=== PATIENT | female | born 1945 | race Caucasian/White ===

== ENCOUNTER 2018-07-15 00:13 | Outpatient (CLI) | payer MEDICARE, SELFPAY ==
--- NOTE | 2018-07-15 08:47 | DI.RAD_ITS ---
SYMPTOM/DIAGNOSIS: RT HIP PAIN, M25.551, LOW BACK PAIN, M54.5 PELVIS AND RIGHT HIP: There is mild bilateral hip joint space narrowing. There is acetabular spurring, greatest superiorly of both hips. There is some spurring at the right greater trochanter. Severe degenerative disc changes are seen in the lower lumbar spine. Calcified fibroid is noted. IMPRESSION: Mild to moderate degenerative changes of both hips. LUMBAR SPINE: No compression fractures are seen. There are bilateral L 5 pars defects and grade 1 L 5-S 1 spondylolisthesis. There is also severe narrowing of the L 5-S 1 disc space. There is also severe narrowing of the L 3-4 disc eccentric toward the right where there are prominent endplate osteophytes. This creates a levoscoliosis. Milder degenerative changes are seen at the remaining levels. IMPRESSION: Degenerative disc changes, greatest at L 3-4 causing scoliosis. L 5 spondylolysis and mild L 5-S 1 spondylolisthesis.
== END 2018-07-15 00:33 ==
PROVIDERS: PCP Family Medicine; Visit Provider Family Medicine
DX: M25.551 Pain in right hip (principal); M16.0 Bilateral primary osteoarthritis of hip; M54.5 Low back pain; M51.36 Other intervertebral disc degeneration, lumbar region; M41.86 Other forms of scoliosis, lumbar region; M43.06 Spondylolysis, lumbar region; M43.17 Spondylolisthesis, lumbosacral region
CPT/HCPCS: 72110; 73502

== ENCOUNTER 2018-08-08 09:41 | Day surgery (SDC) | payer MEDICARE, SELFPAY ==
--- NOTE | 2018-08-07 12:43 | POEE_ITS ---
History of Present Illness Chief Complaint: Progressive decreased vision, right eye Narrative: The patient is a 72-year old lady with history of progressive decreased vision in both eyes at both distance and near. She notes decreased vision when knitting and crocheting and it more difficult time seeing at night d ue to glare from headlights. On examination she was noted to have bilateral nuclear and cortical cataracts with visual acuity of 20/40 OD, 20/20 OS. The option of cataract surgery was offered to the patient and she wished to proceed with cataract surgery in the right eye. NOTE: The Chief Complaint, HPI, Past Medical History, Past Surgical History, Family History, Social History, Medications, and complete Ophthalmic Exam with detailed Assessment and Plan have already been documented in the patient's outpatient ophthalmic record and are not covered again in detail here. PFSH Medical History Cortical cataract of right eye (Acute) Nuclear sclerotic cataract of right eye (Acute) Anxiety Cataract GERD (gastroesophageal reflux disease) H pylori ulcer Hyperlipidemia Migraine Vertigo Surgical History Colonoscopy - IV Sedation (01/06/17) Right Leg fracture Tubal Ligation, Family History Father Colon cancer Maternal Uncle Colon cancer Social History Smoking/Tobacco Use Status: Former Tobacco Use Meds Home Medications Medication Instructions Recorded Confirmed Type atenolol 50 mg PO QAM 03/02/13 08/04/18 History nmkjfdavgf-vdkemyi-pjisubil 1 ea PO Q4H PRN PRN 03/02/13 08/04/18 History cetirizine 10 mg PO DAILY 03/02/13 08/04/18 History cholecalciferol (vitamin D3) 2,000 unit PO DAILY 03/02/13 08/04/18 History cyanocobalamin (vitamin B-12) 1,000 mcg IJ DIRECTED 03/02/13 08/04/18 History meclizine [Antivert] 25 mg PO Q6H PRN PRN 03/02/13 08/04/18 History omeprazole 20 mg PO BID 03/02/13 08/04/18 History simvastatin 80 mg PO QPM 03/02/13 08/04/18 History trazodone 50 mg PO HS 03/02/13 08/04/18 History Tonia-C with Bioflavonoids 1 tab PO PRN PRN 09/16/17 11/15/17 History magnesium oxide [MagOx] 1 tab PO HS 09/16/17 11/15/17 History aspirin [Aspirin Low Dose] 81 mg PO DAILY tab-cap NS 11/02/17 08/04/18 History cod liver oil 1 ea PO HS NS 11/02/17 08/04/18 History gabapentin 400 mg PO HS NS 11/02/17 08/04/18 History lisinopril 2.5 mg PO DAILY tab-cap NS 11/02/17 08/04/18 History omega-3 fatty acids-fish oil 2 ea PO DAILY NS 11/02/17 08/04/18 History sennosides [Senokot] 2 tab-cap PO HS tab-cap NS 11/02/17 08/04/18 History vitamin E (dl, acetate) 100 unit PO HS NS 11/02/17 08/04/18 History pyridoxine (vitamin B6) [Vitamin 100 mg PO HS 11/15/17 08/04/18 History B-6] acetaminophen 1,000 mg PO TID 08/04/18 08/04/18 History ascorbic acid (vitamin C) [Vitamin 500 mg PO DAILY 08/04/18 08/04/18 History C] ibuprofen 400 mg PO .W/DINNER PRN 08/04/18 08/04/18 History oregano oil 08/04/18 History triamcinolone acetonide 1 applic TOPICAL BID 08/04/18 08/04/18 History Allergies Allergy/AdvReac Type Severity Reaction Status Date / Time adhesive Allergy Intermediate itchy rash Unverified 11/16/17 12:56 niacin Allergy Intermediate Skin Rash Unverified 11/16/17 12:56 Sulfa (Sulfonamide Allergy Intermediate Skin Rash Unverified 11/16/17 12:56 Antibiotics) codeine AdvReac Intermediate VOMITING Unverified 11/16/17 12:56 morphine AdvReac Mild vomiting Unverified 11/16/17 12:56 Exam OCULAR EXAM:: Most recent ocular examination reveals corrected visual acuity of 20/40 OD, 20/20 OS. Intraocular pressure is 14 OD, 15 OS. Pupils equal, round, and reactive without afferent pupillary defect extraocular motility is normal. Slit-lamp examination reveals pupils dilating to 5.5 mm OU. 1-2+ nuclear with 1+ cortical cataract OU. Funduscopic examination shows disc cupping of 0.3 OU with normal vessels, macula and vitreous. 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 BRIGHTNESS ACUITY TESTING (BAT):: Brightness acuity testing of the right eye off 20/40. Low is 20/30. Medium is 20/25. High is 20/30. Assessment and Plan (1) Nuclear sclerotic cataract of right eye: Current visit: No Status: Acute Assessment: Visually significant cataract, right eye. Plan: Cataract extraction with intraocular lens implantation, right eye (2) Cortical cataract of right eye: Current visit: No Status: Acute Assessment: Visually significant cataract, right eye. Plan: Cataract extraction with intraocular lens implantation, right eye Note: NOTE:: The details of the planned surgery, including the risks, indications,limitations,expectations,outcome and possible complications were explained to the patient. The patient understands the complications including, but not limited to: infection, hemorrhage, posterior dislocation of the lens or nuclear fragments which may require the intervention of a vitreoretinal surgeon, possible loss of the eye, or from anesthetic complications. The patient has been made aware of the option of not having surgery, that vision following surgery may not be equal to that prior to surgery, and that the planned surgery may not achieve the intended results. Following this discussion, which the patient appeared to understand, the patient wishes to proceed with cataract surgery with lens implantation of the affected eye to improve and maximize vision.
--- NOTE | 2018-08-07 18:59 | W.PM.DSUDISC ---
Discharge Plan Discharge Details Attending Provider: Justino Quinonez Primary Care Provider: Zaynab Thacker V Home Meds and New Rx's Prescriptions: No Action sennosides [Senokot] 8.6 MG tablet 2 tab-cap PO HS RF: 0 cod liver oil 1 EACH capsule 1 ea PO HS RF: 0 aspirin [Aspirin Low Dose] 81 MG tablet,delayed release (DR/EC) 81 mg PO DAILY RF: 0 gabapentin 100 MG capsule 400 mg PO HS RF: 0 lisinopril 2.5 MG tablet 2.5 mg PO DAILY RF: 0 vitamin E (dl, acetate) 100 UNIT capsule 100 unit PO HS RF: 0 omega-3 fatty acids-fish oil 1 EACH capsule 2 ea PO DAILY RF: 0 trazodone 50 MG tablet 50 mg PO HS RF: 0 simvastatin 80 MG tablet 80 mg PO QPM RF: 0 meclizine [Antivert] 25 MG tablet 25 mg PO Q6H PRN PRNRF: 0 cyanocobalamin (vitamin B-12) 1,000 MCG/1 ML solution 1,000 mcg IJ DIRECTED RF: 0 jmxqvwegkj-axauykq-jnyiiwmy 1 EACH capsule 1 ea PO Q4H PRN PRNRF: 0 omeprazole 20 MG capsule,delayed release(DR/EC) 20 mg PO BID RF: 0 atenolol 50 MG tablet 50 mg PO QAM RF: 0 cetirizine 10 MG tablet,chewable 10 mg PO DAILY RF: 0 cholecalciferol (vitamin D3) 1,000 UNITS tablet 2,000 unit PO DAILY RF: 0 Tonia-C with Bioflavonoids 1 EACH tablet 1 tab PO PRN PRNRF: 0 magnesium oxide [MagOx] 400 MG tablet 1 tab PO HS RF: 0 pyridoxine (vitamin B6) [Vitamin B-6] 100 MG tablet 100 mg PO HS RF: 0 triamcinolone acetonide 0.1 % Cream 1 applic TOPICAL BID RF: 0 ascorbic acid (vitamin C) [Vitamin C] 500 mg Tablet 500 mg PO DAILY RF: 0 ibuprofen 400 mg Tablet 400 mg PO .W/DINNER PRNRF: 0 acetaminophen 500 mg Capsule 1,000 mg PO TID RF: 0 oregano oil 1,500 mg Capsule RF: 0 melatonin 10 mg Tablet PO HS RF: 0 Discharge Instructions Stand Alone Forms: Post-op Topical Cataract, Press Ganey (DSU) DS: Diagnosis Discharge Diagnosis (1) Status post cataract extraction and insertion of intraocular lens of right eye: Status: Chronic
--- NOTE | 2018-08-07 19:00 | W.PM.OP ---
Date of service: 08/08/18 Time of Service: 12:20 Operative Note DATE OF PROCEDURE: 08/08/18 PRE-OP DIAGNOSIS: Cataract, right eye PROCEDURE: Cataract extraction using phacoemulsification with intraocular lens implant, right eye SURGEON: Justino Quinonez ANESTHESIA: MAC and local (sub-tenon's anesthetic infiltration) ESTIMATED BLOOD LOSS: 0 PATHOLOGY: none sent COMPLICATIONS: None Patient was transported to: same day Patient's condition: stable Implants: [employer] / [employer] Tecnis [id number] intraocular lens Indications: Progressive decreased vision due to cataract, right eye Procedure Description: CATARACT SURGERY OPERATIVE REPORT PREOPERATIVE DIAGNOSIS: Nuclear/cortical cataract, right eye POSTOPERATIVE DIAGNOSIS: Same OPERATION: Cataract extraction using phacoemulsification with posterior chamber intraocular lens implant, right eye. IOL: IOL First Line Supervisor/Model: [employer] / MARTA Tecnis ZCB00 IOL Power: + 17.0 diopters IOL Serial Number: [id number] Optic Diameter: 6.0mm Haptic/Overall Diameter: 13.0mm PHACO INFO: [employer] Vision System with OZil and Active [employer]uidics Cumulative Dispersed Energy (CDE): 9.51 seconds SURGEON: Justino Quinonez MD, MOE ANESTHESIA: Monitored Anesthesia Care (MAC), with local sub-tenon's anesthetic infiltration COMPLICATIONS: None SPECIMENS: None INDICATIONS FOR PROCEDURE: The patient is a 72-year-old lady with history of diminished visual acuity in both eyes secondary to the development of bilateral nuclear and cortical cataract. The option of cataract surgery was offered to the patient and she felt she was symptomatic enough that she wished to proceed. PROCEDURE: The correct surgical eye was identified and marked as the right eye and the pupil was dilated in the preoperative area using mydriatics and cycloplegics. The dilated pupil size was 6.5 mm. Oral sedation was administered in the form of an Imprimis MKO Melt (midazolam 3mg/ketamine 25mg/ondansetron 2mg). The patient was brought to the operating room where cardiopulmonary monitoring was instituted and surgical time-out was performed, confirming the correct operative eye and IOL power. Topical anesthesia was administered and ophthalmic povidone-iodine 5% was instilled into the conjunctival fornices. Lidocaine gel was applied to the cornea and the nerissa-ocular area was prepped with Betadine 10% solution and draped in the usual sterile fashion for intraocular surgery, including an aperture drape. A Tegaderm transparent film dressing was cut in half and used to cover the lashes and lid margins. Care was taken to sequester the lashes and lid margins under the Tegaderm dressing. A lid speculum was placed between the lids of the operative eye and the Dianne-Alisa operating microscope was maneuvered into position. Pop scissors were then used to make a conjunctival buttonhole approximately 6mm posterior to the limbus in the inferonasal quadrant. Blunt dissection was carried out to expose bare sclera, and a blunt-tipped sub-tenon?s anesthesia cannula was introduced and passed posteriorly along the globe where non-preserved plain lidocaine was injected into posterior sub-Tenon?s space. A sideport knife was used to make a paracentesis port inferiortemporally, and the anterior chamber was filled with Healon GV. A 2.4mm keratome knife was used to create a half-thickness groove at the limbus and then to construct a three-plane near-clear corneal tunnel extending 2.0mm into clear cornea in the superiortemporal position. . A flap was raised on the anterior capsule and capsulorhexis forceps were used to complete a continuous curvilinear capsulorhexis of 5.0 mm. Balanced salt solution was then used to perform cortical cleaving hydrodissection and nuclear hydrodelineation until the lens could be freely rotated within the capsular bag. The lens nucleus was then disassembled and removed within the capsular bag and iris plane using phacoemulsification. Residual cortical material was removed using the Caleb Transfomer I/A. Some shallowing of the anterior chamber was noted during I/A of the cortical material. The capsular bag was then inflated and the anterior chamber deepened with viscoelastic. The lens implant described above was inserted into the capsular bag using the MARTA [place] Injector. A Kuglen hook was used to dial the IOL into position. Residual viscoelastic was then removed first from posterior to the IOL, then from the anterior chamber using the I/A handpiece. The lens implant was noted to center nicely within the capsular bag. The anterior chamber was somewhat shallow. The incisions were stromally hydrated, resulting in iris prolapse through the main incision and paracentesis. A 15 degree blade was used to make a paracentesis port at the 2:30 o'clock position, and the anterior chamber pressure was relieved. Miostat was then injected into the anterior chamber and the pupil was noted to come down round. The anterior chamber was reformed using BSS. Then 0.4cc of moxifloxacin 1.5mg/ml were injected into the capsular bag and anterior chamber. The incisions were checked with a Weck spear and found to be secure, leaving the eye at physiologic pressure. Several drops of ophthalmic povidone-iodine 5% were then applied to the eye followed by two drops of Imprimis combination moxifloxacin/dexamethasone solution. The drapes were removed and a clear plastic protective eye shield was placed over the eye. The patient was then returned to Same Day Surgery in stable condition.
[2018-08-08 10:19] VITALS: BP 120/61; PULSE 57; RESP 16; TEMP 36.2; O2SAT 96
[2018-08-08] MEDS: Tetracaine 0.5% 4 ML BTL OD ×4 (10:26→11:43)
[2018-08-08] MEDS: Tropicam./Phenyleph. (1/2.5%) 5 ML BTL OD ×3 (10:27→10:42)
[2018-08-08] MEDS: Povidone-Iodine Ophth 30 ML BTL (11:42)
[2018-08-08] MEDS: Lidocaine 2% Jelly 6 ML SYR (11:43)
[2018-08-08] MEDS: Lidocaine 1% Pres-Free 5 ML VIAL (11:48)
[2018-08-08] MEDS: Balanced Salt Soln.-PLUS 500 ML BAG (11:49)
[2018-08-08 12:54] VITALS: BP 116/71; PULSE 68; RESP 16; TEMP 35.3; O2SAT 96
== END 2018-08-08 13:05 | disposition home or self-care (01) ==
LOC: SUR 09:41
PROVIDERS: PCP Family Medicine; Visit Provider Ophthalmology
PROC: (CPT 66984; principal; 2018-08-08 12:30)
DX: H25.811 Combined forms of age-related cataract, right eye (principal); I10 Essential (primary) hypertension; E11.9 Type 2 diabetes mellitus without complications; K21.9 Gastro-esophageal reflux disease without esophagitis
CPT/HCPCS: 66984; V2632

== ENCOUNTER 2018-08-22 13:02 | Day surgery (SDC) | payer MEDICARE, SELFPAY ==
--- NOTE | 2018-08-21 18:59 | POEE_ITS ---
History of Present Illness Chief Complaint: Progressive decreased vision, left eye Narrative: The patient is a 72-year old lady with history of progressive decreased vision in both eyes at both distance and near. She noted difficulty with knitting and crocheting and trouble seeing at night. On examination she wa s noted to have bilateral nuclear and cortical cataracts with visual acuity of 20/40 OD, 20/20 OS. She underwent cataract surgery in the right eye on 08/08/2018. Postoperatively she has regained uncorrected vision of 20/20 in the right eye. She has uncorrected vision of 20/60 in the left eye and now desires cataract surgery in her left eye to improve and maximize her vision. NOTE: The Chief Complaint, HPI, Past Medical History, Past Surgical History, Family History, Social History, Medications, and complete Ophthalmic Exam with detailed Assessment and Plan have already been documented in the patient's outpatient ophthalmic record and are not covered again in detail here. PFSH Medical History Cortical cataract of left eye (Acute) Nuclear sclerotic cataract of left eye (Acute) Cortical cataract of right eye (Resolved) Nuclear sclerotic cataract of right eye (Resolved) Anxiety Cataract GERD (gastroesophageal reflux disease) H pylori ulcer Hyperlipidemia Migraine Vertigo Surgical History Status post cataract extraction and insertion of intraocular lens of right eye (Chronic 08/08/18) Colonoscopy - IV Sedation (01/06/17) Right Leg fracture Tubal Ligation, Family History Father Colon cancer Maternal Uncle Colon cancer Social History Smoking and Tabacco status: Never Meds Home Medications Medication Instructions Recorded Confirmed Type atenolol 50 mg PO QAM 03/02/13 08/08/18 History pmpwtmwvgv-lkfvnkn-plmxvewx 1 ea PO Q4H PRN PRN 03/02/13 08/08/18 History cetirizine 10 mg PO DAILY 03/02/13 08/08/18 History cholecalciferol (vitamin D3) 2,000 unit PO DAILY 03/02/13 08/08/18 History cyanocobalamin (vitamin B-12) 1,000 mcg IJ DIRECTED 03/02/13 08/08/18 History meclizine [Antivert] 25 mg PO Q6H PRN PRN 03/02/13 08/08/18 History omeprazole 20 mg PO BID 03/02/13 08/08/18 History simvastatin 80 mg PO QPM 03/02/13 08/08/18 History trazodone 50 mg PO HS 03/02/13 08/08/18 History Tonia-C with Bioflavonoids 1 tab PO PRN PRN 09/16/17 11/15/17 History magnesium oxide [MagOx] 1 tab PO HS 09/16/17 08/08/18 History aspirin [Aspirin Low Dose] 81 mg PO DAILY tab-cap NS 11/02/17 08/08/18 History cod liver oil 1 ea PO HS NS 11/02/17 08/08/18 History gabapentin 400 mg PO HS NS 11/02/17 08/08/18 History lisinopril 2.5 mg PO DAILY tab-cap NS 11/02/17 08/08/18 History omega-3 fatty acids-fish oil 2 ea PO DAILY NS 11/02/17 08/08/18 History sennosides [Senokot] 2 tab-cap PO HS tab-cap NS 11/02/17 08/08/18 History vitamin E (dl, acetate) 100 unit PO HS NS 11/02/17 08/08/18 History pyridoxine (vitamin B6) [Vitamin 100 mg PO HS 11/15/17 08/08/18 History B-6] acetaminophen 1,000 mg PO TID 08/04/18 08/08/18 History ascorbic acid (vitamin C) [Vitamin 500 mg PO DAILY 08/04/18 08/08/18 History C] ibuprofen 400 mg PO .W/DINNER PRN 08/04/18 08/08/18 History oregano oil 08/04/18 History triamcinolone acetonide 1 applic TOPICAL BID 08/04/18 08/08/18 History melatonin PO HS 08/08/18 History Allergies Allergy/AdvReac Type Severity Reaction Status Date / Time adhesive Allergy Intermediate itchy rash Unverified 08/08/18 10:07 niacin Allergy Intermediate Skin Rash Unverified 08/08/18 10:07 Sulfa (Sulfonamide Allergy Intermediate Skin Rash Unverified 08/08/18 10:07 Antibiotics) codeine AdvReac Intermediate VOMITING Unverified 08/08/18 10:07 morphine AdvReac Mild vomiting Unverified 08/08/18 10:07 Exam OCULAR EXAM:: Most recent ocular examination revealed uncorrected vision of 20/20 OD, 20/60 OS. Intraocular pressure was 14 OD, 15 OS. Extraocular motility is normal. Pupils equal, round, and reactive without afferent pupillary defect slit-lamp examination is significant for pupils dilating to 5.5 mm OU. Well-positioned PCIOL OD with clear posterior capsule. 1-2+ nuclear with 1+ cortical cataract OS. Dilated funduscopic examination shows disc cupping of 0.3 OU with good color. The macula is normal. Retinopexy scars are present inferiorly in the right eye. 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 BRIGHTNESS ACUITY TESTING (BAT):: Brightness acuity testing of the left eye off is 20/20. Low is 20/25. Medium is 20/20. High is 20/30. Assessment and Plan (1) Nuclear sclerotic cataract of left eye: Current visit: No Status: Acute Assessment: Visually significant cataract, left eye. Plan: Cataract extraction with intraocular lens implantation, left eye (2) Cortical cataract of left eye: Current visit: No Status: Acute Assessment: Visually significant cataract, left eye. Plan: Cataract extraction with intraocular lens implantation, left eye Note: NOTE:: The details of the planned surgery, including the risks, indications,limitations,expectations,outcome and possible complications were explained to the patient. The patient understands the complications including, but not limited to: infection, hemorrhage, posterior dislocation of the lens or nuclear fragments which may require the intervention of a vitreoretinal surgeon, possible loss of the eye, or from anesthetic complications. The patient has been made aware of the option of not having surgery, that vision following surgery may not be equal to that prior to surgery, and that the planned surgery may not achieve the intended results. Following this discussion, which the patient appeared to understand, the patient wishes to proceed with cataract surgery with lens implantation of the affected eye to improve and maximize vision.
[2018-08-22 10:00] VITALS: BP 115/62; PULSE 58; RESP 16; TEMP 36.1; O2SAT 97
[2018-08-22] MEDS: Tetracaine 0.5% 4 ML BTL OS ×4 (10:33→12:17)
[2018-08-22] MEDS: Tropicam./Phenyleph. (1/2.5%) 5 ML BTL OS ×3 (10:33→10:40)
[2018-08-22] MEDS: Lidocaine 2% Jelly 6 ML SYR (12:17)
[2018-08-22] MEDS: Lidocaine 1% Pres-Free 5 ML VIAL (12:21)
[2018-08-22] MEDS: Balanced Salt Soln.-PLUS 500 ML BAG (12:21)
[2018-08-22] MEDS: Povidone-Iodine Ophth 30 ML BTL (12:45)
--- NOTE | 2018-08-22 12:50 | W.PM.DSUDISC ---
Discharge Plan Discharge Details Attending Provider: Justino Quinonez Primary Care Provider: Zaynab Thacker V Home Meds and New Rx's Prescriptions: No Action sennosides [Senokot] 8.6 MG tablet 2 tab-cap PO HS RF: 0 cod liver oil 1 EACH capsule 1 ea PO HS RF: 0 aspirin [Aspirin Low Dose] 81 MG tablet,delayed release (DR/EC) 81 mg PO DAILY RF: 0 gabapentin 100 MG capsule 400 mg PO HS RF: 0 lisinopril 2.5 MG tablet 2.5 mg PO DAILY RF: 0 vitamin E (dl, acetate) 100 UNIT capsule 100 unit PO HS RF: 0 omega-3 fatty acids-fish oil 1 EACH capsule 2 ea PO DAILY RF: 0 trazodone 50 MG tablet 50 mg PO HS RF: 0 simvastatin 80 MG tablet 80 mg PO QPM RF: 0 meclizine [Antivert] 25 MG tablet 25 mg PO Q6H PRN PRNRF: 0 cyanocobalamin (vitamin B-12) 1,000 MCG/1 ML solution 1,000 mcg IJ DIRECTED RF: 0 fpllmdrzhf-ftwdajd-pzwpkzdf 1 EACH capsule 1 ea PO Q4H PRN PRNRF: 0 omeprazole 20 MG capsule,delayed release(DR/EC) 20 mg PO BID RF: 0 atenolol 50 MG tablet 50 mg PO QAM RF: 0 cetirizine 10 MG tablet,chewable 10 mg PO DAILY RF: 0 cholecalciferol (vitamin D3) 1,000 UNITS tablet 2,000 unit PO DAILY RF: 0 Tonia-C with Bioflavonoids 1 EACH tablet 1 tab PO PRN PRNRF: 0 magnesium oxide [MagOx] 400 MG tablet 1 tab PO HS RF: 0 pyridoxine (vitamin B6) [Vitamin B-6] 100 MG tablet 100 mg PO HS RF: 0 triamcinolone acetonide 0.1 % Cream 1 applic TOPICAL BID RF: 0 ascorbic acid (vitamin C) [Vitamin C] 500 mg Tablet 500 mg PO DAILY RF: 0 ibuprofen 400 mg Tablet 400 mg PO .W/DINNER PRNRF: 0 acetaminophen 500 mg Capsule 1,000 mg PO TID RF: 0 oregano oil 1,500 mg Capsule RF: 0 melatonin 10 mg Tablet 1 tab PO HS RF: 0 Discharge Instructions Stand Alone Forms: Post-op Topical Cataract, Press Ganey (DSU) DS: Diagnosis Discharge Diagnosis (1) Status post cataract extraction and insertion of intraocular lens of left eye: Status: Chronic
--- NOTE | 2018-08-22 12:51 | W.PM.OP ---
Date of service: 08/22/18 Time of Service: 12:51 Operative Note PRE-OP DIAGNOSIS: Cataract, left eye POST-OP DIAGNOSIS: same PROCEDURE: Cataract extraction using phacoemulsification with intraocular lens implant, left eye SURGEON: Justino Quinonez ANESTHESIA: MAC and local (sub-tenon's anesthetic infiltration) PATHOLOGY: none sent COMPLICATIONS: None Patient was transported to: same day Patient's condition: stable Implants: [employer] / [employer] Tecnis [id number] Indications: Progressive decreased vision due to cataract, left eye Procedure Description: CATARACT SURGERY OPERATIVE REPORT PREOPERATIVE DIAGNOSIS: Nuclear/cortical cataract, left eye POSTOPERATIVE DIAGNOSIS: Same OPERATION: Cataract extraction using phacoemulsification with posterior chamber intraocular lens implant, left eye. IOL: IOL Api Developer/Model: [employer] / MARTA Tecnis [id number] IOL Power: + 16.50 diopters IOL Serial Number: [id number] Optic Diameter: 6.0mm Haptic/Overall Diameter: 13.0mm PHACO INFO: Caleb Get[employer]urion Vision System with OZil and Active Fluidics Cumulative Dispersed Energy (CDE): 8.0 seconds SURGEON: Justino Quinonez MD, MOE ANESTHESIA: Monitored Anesthesia Care (MAC), with local sub-tenon's anesthetic infiltration COMPLICATIONS: None SPECIMENS: None INDICATIONS FOR PROCEDURE: Patient is a 72-year-old lady with history of diminished visual acuity in both eyes secondary to the development of bilateral nuclear and cortical cataract. She is Ardie undergone cataract surgery in her right eye on 08/08/2018. She is doing well postoperatively. She now presents for cataract surgery in the left eye. PROCEDURE: The correct surgical eye was identified and marked as the left eye and the pupil was dilated in the preoperative area using mydriatics and cycloplegics. The dilated pupil size was 7.0 mm. Oral sedation was administered in the form of an Imprimis MKO Melt (midazolam 3mg/ketamine 25mg/ondansetron 2mg). The patient was brought to the operating room where cardiopulmonary monitoring was instituted and surgical time-out was performed, confirming the correct operative eye and IOL power. Topical anesthesia was administered and ophthalmic povidone-iodine 5% was instilled into the conjunctival fornices. Lidocaine gel was applied to the cornea and the nerissa-ocular area was prepped with Betadine 10% solution and draped in the usual sterile fashion for intraocular surgery, including an aperture drape. A Tegaderm transparent film dressing was cut in half and used to cover the lashes and lid margins. Care was taken to sequester the lashes and lid margins under the Tegaderm dressing. A lid speculum was placed between the lids of the operative eye and the Dianne-Alisa operating microscope was maneuvered into position. Pop scissors were then used to make a conjunctival buttonhole approximately 6mm posterior to the limbus in the inferonasal quadrant. Blunt dissection was carried out to expose bare sclera, and a blunt-tipped sub-tenon?s anesthesia cannula was introduced and passed posteriorly along the globe where non-preserved plain lidocaine was injected into posterior sub-Tenon?s space. A sideport knife was used to make a paracentesis port superior/superiortemporal, and the anterior chamber was filled with Healon GV. A 2.4mm keratome knife was used to create a half-thickness groove at the limbus and then to construct a three-plane near-clear corneal tunnel extending 2.0mm into clear cornea in the temporal position. . A flap was raised on the anterior capsule and capsulorhexis forceps were used to complete a continuous curvilinear capsulorhexis of 5.5 mm. Balanced salt solution was then used to perform cortical cleaving hydrodissection and nuclear hydrodelineation until the lens could be freely rotated within the capsular bag. The lens nucleus was then disassembled and removed within the capsular bag and iris plane using phacoemulsification. Residual cortical material was removed using the 45-degree angled silicone I/A tip with 0.3mm port. The posterior capsule was carefully polished to remove as much residual lens epithelial cells as safely possible. The capsular bag was then inflated and the anterior chamber deepened with viscoelastic. The lens implant described above was inserted into the capsular bag using the MARTA [place] Injector. A Kuglen hook was used to dial the IOL into position. Residual viscoelastic was then removed first from posterior to the IOL, then from the anterior chamber using the I/A handpiece. The lens implant was noted to center nicely within the capsular bag. The incisions were stromally hydrated, and the anterior chamber was reformed using BSS. Then 0.4cc of moxifloxacin 1.5mg/ml were injected into the capsular bag and anterior chamber. The incisions were checked with a Weck spear and found to be secure. Several drops of ophthalmic povidone-iodine 5% were then applied to the eye followed by two drops of Imprimis combination moxifloxacin/dexamethasone solution. The drapes were removed and a clear plastic protective eye shield was placed over the eye. The patient was then returned to Same Day Surgery in stable condition.
[2018-08-22 13:05] VITALS: BP 108/65; PULSE 67; RESP 16; TEMP 35.7; O2SAT 95
== END 2018-08-22 13:15 | disposition home or self-care (01) ==
LOC: SUR 13:02
PROVIDERS: PCP Family Medicine; Visit Provider Ophthalmology
PROC: (CPT 66984; principal; 2018-08-22 11:30)
DX: H25.812 Combined forms of age-related cataract, left eye (principal); Z98.41 Cataract extraction status, right eye; Z96.1 Presence of intraocular lens; E11.9 Type 2 diabetes mellitus without complications; K21.9 Gastro-esophageal reflux disease without esophagitis
CPT/HCPCS: 66984; V2632

== ENCOUNTER → 2018-08-24 10:40 | Outpatient (BNVA) | payer MEDICARE, SELFPAY | PROVIDERS: PCP Family Medicine; Referring Provider Family Medicine; Visit Provider Student in an Organized Health Care Education/Training Program | DX: M43.17 Spondylolisthesis, lumbosacral region (principal); M41.50 Other secondary scoliosis, site unspecified | CPT/HCPCS: 99203; 99214 ==

== ENCOUNTER 2018-09-13 15:25 | Outpatient (REF) | payer MEDICARE, SELFPAY ==
[2018-09-13 20:59] LABS: ALT 39 U/L (12-78); AST 56 U/L (15-37); Alkaline Phosphatase 53 U/L (46-116); Anion Gap 9.9 mmol/L (3-11); BUN 14 mg/dL (7-18); Bilirubin, Total 0.3 mg/dL (0.2-1.0); CO2 26.1 mmol/L (21.0-32.0); CREATININE 0.82 mg/dL (0.55-1.02); Calcium 9.3 mg/dL (8.5-10.1); Chloride 102 mmol/L (98-107); Cholesterol 241 mg/dL (50-200); Glucose 145 mg/dL (70-100); HDL Cholesterol 42 mg/dL (40-60); LDL CHOLESTEROL 127 mg/dL (<100); Potassium 3.8 mmol/L (3.5-5.1); Sodium 138 mmol/L (136-145); Total Protein 7.7 g/dL (6.4-8.2); Triglyceride 585 mg/dL (30-150)
== END 2018-09-13 15:45 ==
LOC: NCHCN 15:25
PROVIDERS: PCP Family Medicine; Visit Provider Family Medicine
DX: I10 Essential (primary) hypertension (principal); E78.5 Hyperlipidemia, unspecified
CPT/HCPCS: 80053; 80061; 83721

== ENCOUNTER 2018-10-04 09:50 | Outpatient (CLI) | payer MEDICARE, SELFPAY ==
--- NOTE | 2018-10-04 13:15 | DI.MAMMO_ITS ---
SYMPTOMS/DIAGNOSIS: SCREENING, Z12.31, [facility], Z00.00 MAMMOGRAM: Mammograms were interpreted according to the usual protocol including computer analysis with CAD system, tomosynthesis and C view imaging. The breast tissue is of moderate radiodensity. There is no evidence of a mass. There are no suspicious calcifications. When compared with the previous study, again noted is a biopsy clip positioned over the lateral portion of the left breast. SUMMARY: No evidence of malignancy, Category I, yearly screening mammography is recommended. Breast density Category B. SA ASSESSMENT OF FINDINGS: Negative. Category 1. Patient will receive a letter notifying them of these results. BI-RADS category B. There are scattered areas of fibroglandular density.
== END 2018-10-04 10:10 ==
PROVIDERS: PCP Family Medicine; Visit Provider Family Medicine
DX: Z12.31 Encounter for screening mammogram for malignant neoplasm of breast (principal)
CPT/HCPCS: 77063; 77067

== ENCOUNTER → 2018-10-19 10:25 | Outpatient (BNVA) | payer MEDICARE, SELFPAY | PROVIDERS: PCP Family Medicine; Referring Provider Family Medicine; Visit Provider Student in an Organized Health Care Education/Training Program | DX: M41.50 Other secondary scoliosis, site unspecified (principal); M43.10 Spondylolisthesis, site unspecified | CPT/HCPCS: 99213 ==

== ENCOUNTER 2018-10-24 00:31 | Outpatient (CLI) | payer MEDICARE, SELFPAY ==
--- NOTE | 2018-10-24 13:38 | DI.MRI_ITS ---
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 T1, T2 and STIR sagittal, T1 coronal and T1 and T2 axial sequences were performed. The marrow signal is normal. There is a small central disc protrusion at T12-L1, which does not appear to cause nerve root impingement. There is no significant central canal stenosis or neural foraminal narrowing. At L1-2, there is concentric disc bulging and small endplate osteophytes. There are mild facet degenerative changes. At L2-3, there is concentric disc bulging. There are facet degenerative changes and ligamentous hypertrophy causing severe bilateral neural foraminal narrowing. At L3-4, there is a marked loss of disc height eccentric toward the right, where there are prominent right-sided osteophytes. There were overall broad-based disc osteophytes. There was severe right neural foraminal narrowing and mild left neural foraminal narrowing. The facet degenerative changes and ligamentous hypertrophy also contribute to a moderate degree of central canal stenosis. At L4-5, there is broad-based disc bulging and endplate osteophytes. There are prominent facet degenerative changes. There is severe bilateral neural foraminal narrowing. There is L5 spondylolysis and L5-S1 grade 1 spondylolisthesis as well as severe bilateral neural foraminal narrowing. There is loss of disc height at this level. There is no significant central canal stenosis. The aorta is normal in diameter. The conus medullaris is unremarkable. IMPRESSION: Multilevel degenerative disc changes and facet degenerative changes causing neural foraminal narrowing at multiple levels. There is central canal stenosis, greatest at L3-4 and L4-5. L5 spondylolysis causes mild L5-S1 spondylolisthesis.
== END 2018-10-24 00:51 ==
PROVIDERS: PCP Family Medicine; Visit Provider Student in an Organized Health Care Education/Training Program
DX: M51.36 Other intervertebral disc degeneration, lumbar region (principal); M48.061 Spinal stenosis, lumbar region without neurogenic claudication; M43.16 Spondylolisthesis, lumbar region; M43.06 Spondylolysis, lumbar region
CPT/HCPCS: 72148

== ENCOUNTER 2018-12-30 07:42 | Emergency (ER) | payer MEDICARE, SELFPAY ==
[2018-12-30 07:47] VITALS: BP 137/74; PULSE 81; RESP 16; TEMP 36.5; O2SAT 99
--- NOTE | 2018-12-30 08:17 | ED.GENADUL_ITS ---
Discharge Plan Disposition Patient Disposition: HOME Condition: Good Discharge Details Chief Complaint: Abd Prob Clinical Impression: Nausea, Gastric wall thickening Primary Care Provider: Zaynab Thacker V ED Provider: Zia Dickerson Home Meds and New Rx's Prescriptions: New ondansetron HCl [Zofran] 4 mg tablet 4 mg PO BID-TID PRN (Reason: nausea and vomiting) Qty: 10 RF: 0 sucralfate [Carafate] 1 gram tablet 1 gm PO QACHS Qty: 30 RF: 0 Continued potassium 99 mg tablet 99 mg PO DAILY RF: 0 sennosides [Senokot] 8.6 MG tablet 2 tab-cap PO HS RF: 0 cod liver oil 1 EACH capsule 1 ea PO HS RF: 0 aspirin [Aspirin Low Dose] 81 MG tablet,delayed release (DR/EC) 81 mg PO DAILY RF: 0 gabapentin 100 MG capsule 400 mg PO HS RF: 0 lisinopril 2.5 MG tablet 2.5 mg PO DAILY RF: 0 vitamin E (dl, acetate) 100 UNIT capsule 100 unit PO HS RF: 0 omega-3 fatty acids-fish oil 1 EACH capsule 2 ea PO DAILY RF: 0 Iman-Everetts Original 325-1,916-1,000 mg Tablet, Effervescent 2 tab PO Q4H PRNRF: 0 trazodone 50 MG tablet 50 mg PO HS RF: 0 simvastatin 80 MG tablet 80 mg PO QPM RF: 0 meclizine [Antivert] 25 MG tablet 25 mg PO Q6H PRN PRNRF: 0 cyanocobalamin (vitamin B-12) 1,000 MCG/1 ML solution 1,000 mcg IJ DIRECTED RF: 0 [id number] 1 EACH capsule 1 ea PO Q4H PRN PRNRF: 0 atenolol 50 MG tablet 50 mg PO QAM RF: 0 cetirizine 10 MG tablet,chewable 10 mg PO DAILY RF: 0 cholecalciferol (vitamin D3) 1,000 UNITS tablet 2,000 unit PO DAILY RF: 0 omeprazole 20 mg capsule,delayed release(DR/EC) 20 mg PO DAILY RF: 0 Tonia-C with Bioflavonoids 500-200 mg tablet 1 tab PO DAILY RF: 0 pyridoxine (vitamin B6) [Vitamin B-6] 100 MG tablet 100 mg PO HS RF: 0 triamcinolone acetonide 0.1 % Cream 1 applic TOPICAL BID RF: 0 ibuprofen 400 mg Tablet 400 mg PO .W/DINNER PRNRF: 0 acetaminophen 500 mg Capsule 1,000 mg PO TID RF: 0 oregano oil 1,500 mg Capsule RF: 0 melatonin 10 mg Tablet 1 tab PO HS RF: 0 Discharge Instructions Instructions: Acute Nausea and Vomiting (ED) Additional Instructions: Your laboratory work-up is reassuring. Your CT scan shows no significant abnormality aside for thickening of your stomach wall. With your family history of cancer in your long running history of reflux this is concerning for potential cancer. Although there are many other things that are not cancerous that can cause this thickening it still needs to be closely evaluated by a surgeon. You will be contacted for your appointment with surgery. Please stick with a diet of easy foods like oatmeal, rice, applesauce. Take ensures to maintain your caloric intake. Take the Zofran as needed for nausea. If you notice any worsening of your symptoms, or any new symptoms such as vomiting, diarrhea, fever, chills, shortness of breath, chest pain, numbness, weakness, or fainting , please return immediately to the emergency department for reevaluation. Please follow up with your primary care provider as soon as possible for reassessment and reevaluation. As always, it was a pleasure participating in your medical care today. Referrals: Zaynab Thacker MD [Primary Care Provider] - Medical Decision Making This is a 73-year-old female with a past medical history of diabetes, high cholesterol, hypertension, who presents today for evaluation of epigastric abdominal pain for the last 1 to 2 days. She has had anorexia secondary to this but has been able to drink some fluid. She has had 2 episodes of vomiting over the last 2 days, no diarrhea or bowel movements L. Pain is mild. She does not drink alcohol. Exam demonstrates minimal epigastric tenderness. No flank or CVA tenderness, no urinary symptoms. Past surgical history is only positive for tubal. Due to the patient's age, risk factors and symptoms will get a CT scan to rule out acute process. Bedside limited ultrasound demonstrates a nontender gallbladder with no evidence of significant gallbladder wall thickening. Differential includes mild pancreatitis, GI upset from viral illness, less likely obstruction or ileus. We will gently rehydrate, treat nausea, get a CT scan and reassess. 9:25 AM Laboratory work-up demonstrates no significant elevation in her white count, hemoglobin stable, no left shift. Platelets normal. Electrolytes within normal limits, renal function stable. Troponin, EKG and lipase are normal. CT scan results have returned and per Dr. Brooke there is no significant acute process however there is notable thickening of the stomach. The patient has a long history of reflux, she also has a family history of stomach cancer. This is certainly concerning with these findings, and the patient's mild malaise, and chronic epigastric nausea and achiness. Patient has been given a GI cocktail and is feeling much better. She is tolerating p.o. She does feel ready to go home. No evidence of an acute surgical process requiring admission at this time. No evidence of profound dehydration or vital sign abnormality. We will schedule follow-up on an outpatient basis with the surgeon for EGD for further evaluation of potential malignancy biopsy. We discussed the importance of close follow-up with her PCP and the surgeon. We discussed red flags which to return and appropriate diet. I have extensively reviewed the treatment plan and discharge instructions with the patient and their family. I have addressed all patient concerns at this time. The patient and family was made aware of what symptoms to monitor for that would warrant a return to the emergency department. Discussed the plan with the patient and family, they demonstrate verbal understanding and agreement with our assessment and plan at this time. EKG 8: 16 Rate 65, SC 170, QTc 443, QRS 96, sinus rhythm, no significant ST elevations or depressions. Old Q waves in lead III and aVF. Inverted T wave in V1. Flattene d/inverted T wave in lead III. No other significant abnormalities HPI General Date/Time Provider Initiated Documentation: 12/30/18 08:01 . HPI Narrative: This is a 73-year-old female with a past medical history of arthritis, GERD, high cholesterol, diabetes, who presents today with abdominal pain. The patient states that for the last 2 to 3 days she has had mild epigastric tenderness, nausea, and 2 episodes of vomiting. She has been able to drink small amounts of fluid but has been unable to eat anything secondary to nausea and stomach upset. She denies any diarrhea, she has had no bowel movements in the last day and 1/2 to 2 days in spite of taking [id number] stool softeners. She denies any chest pain, chest heaviness, chest tightness, shortness of breath, numbness tingling or weakness. She denies any dysuria or hematuria. She denies any fever or chills. Past surgical history is positive for tubal ligation. She denies any other complaints modifying factors. She denies any alcohol use, IV or illicit drug use, recent surgeries. She denies any history of myocardial infarction or stroke. Related Data Home Medications Medication Instructions Recorded Confirmed atenolol 50 mg PO QAM 03/02/13 12/01/18 [id number] 1 ea PO Q4H PRN PRN 03/02/13 12/01/18 cetirizine 10 mg PO DAILY 03/02/13 12/01/18 cholecalciferol (vitamin D3) 2,000 unit PO DAILY 03/02/13 12/01/18 cyanocobalamin (vitamin B-12) 1,000 mcg IJ DIRECTED 03/02/13 12/01/18 meclizine [Antivert] 25 mg PO Q6H PRN PRN 03/02/13 12/01/18 simvastatin 80 mg PO QPM 03/02/13 12/01/18 trazodone 50 mg PO HS 03/02/13 12/01/18 aspirin [Aspirin Low Dose] 81 mg PO DAILY tab-cap NS 11/02/17 12/01/18 cod liver oil 1 ea PO HS NS 11/02/17 12/01/18 gabapentin 400 mg PO HS NS 11/02/17 12/01/18 lisinopril 2.5 mg PO DAILY tab-cap NS 11/02/17 12/01/18 omega-3 fatty acids-fish oil 2 ea PO DAILY NS 11/02/17 12/01/18 sennosides [Senokot] 2 tab-cap PO HS tab-cap NS 11/02/17 12/01/18 vitamin E (dl, acetate) 100 unit PO HS NS 11/02/17 12/01/18 pyridoxine (vitamin B6) [Vitamin 100 mg PO HS 11/15/17 12/01/18 B-6] acetaminophen 1,000 mg PO TID 08/04/18 12/01/18 ibuprofen 400 mg PO .W/DINNER PRN 08/04/18 12/01/18 oregano oil 08/04/18 12/01/18 triamcinolone acetonide 1 applic TOPICAL BID 08/04/18 12/01/18 melatonin 1 tab PO HS 08/08/18 12/01/18 ascorbate calcium-bioflavonoid 500 1 tab PO DAILY tab 08/24/18 12/01/18 mg-200 mg tablet omeprazole 20 mg capsule,delayed 20 mg PO DAILY cap 08/24/18 12/01/18 release Iman-Everetts Original 2 tab PO Q4H PRN 11/23/18 12/01/18 potassium 99 mg tablet 99 mg PO DAILY 12/01/18 12/01/18 ondansetron HCl [Zofran] 4 mg PO BID-TID PRN #10 tab 12/30/18 sucralfate [Carafate] 1 gm PO QACHS #30 tab 12/30/18 Previous Rx's Medication Instructions Recorded ondansetron HCl [Zofran] 4 mg PO BID-TID PRN #10 tab 12/30/18 sucralfate [Carafate] 1 gm PO QACHS #30 tab 12/30/18 Allergies Allergy/AdvReac Type Severity Reaction Status Date / Time adhesive Allergy Intermediate itchy rash Unverified 12/30/18 07:53 niacin Allergy Intermediate Skin Rash Unverified 12/30/18 07:53 Sulfa (Sulfonamide Allergy Intermediate Skin Rash Unverified 12/30/18 07:53 Antibiotics) codeine AdvReac Intermediate VOMITING Unverified 12/30/18 07:53 morphine AdvReac Mild vomiting Unverified 12/30/18 07:53 General Stated Complaint: Abd Prob BETO: 3 Review of Systems Review of Systems All systems reviewed & are unremarkable except as noted in HPI and below PFSH Medical History Abdominal pain (Acute) Adenomatous colon polyp (Acute) Allergic rhinitis (Acute) Arthritis (Acute) Diabetes mellitus type 2, controlled (Acute) Eczema (Acute) Fracture of right lower leg (Acute) Gait abnormality (Acute) Grief reaction (Acute) Headache (Acute) Heart murmur, systolic (Acute) Hyperparathyroidism (Acute) Low back pain (Acute) Onychomycosis of toenail (Acute) Palpitations (Acute) Peripheral neuropathy (Acute) Right hip pain (Acute) Urinary incontinence (Acute) Vitamin B12 deficiency (Acute) HTN (hypertension) (Chronic) Cortical cataract of left eye (Resolved) Cortical cataract of right eye (Resolved) Nuclear sclerotic cataract of left eye (Resolved) Nuclear sclerotic cataract of right eye (Resolved) Anxiety Cataract GERD (gastroesophageal reflux disease) H pylori ulcer Hyperlipidemia Migraine Vertigo Surgical History Status post cataract extraction and insertion of intraocular lens of left eye (Chronic 08/22/18) Status post cataract extraction and insertion of intraocular lens of right eye (Chronic 08/08/18) Colonoscopy - IV Sedation (01/06/17) Right Leg fracture Tubal Ligation, Social History Smoking/Tobacco Use Status: Never Alcohol Intake: never Drug use: Never Household members: none Housing: house Number of Children: 2 What is your relationship status?: Panel score (0-1 are the most socially isolated patients): 0 What type of physical activity do you participate in: additional Details: yard work and gardening Do you feel safe at home: Yes Do you feel safe in your relationship?: Yes Exam Narrative Exam Narrative: 1.Const: Well-nourished, Well-developed, appearing stated age 2.Eyes: PERRL, no conjunctival injection, and symmetrical lids. 3.ENT: Atraumatic external nose and ears. Moist MM. Neck: Symmetric, trachea midline, No thyromegaly. 4.CVS: +S1/S2, No murmurs or gallops. Peripheral pulses 2+ and equal in all extremities. Brisk capillary refill in all extremities. 5.RESP: Unlabored respiratory effort. Clear to auscultation bilaterally. No wheezes rales or rhonchi 6.GI: Soft, Nondistended, No hepatosplenomegaly. No guarding or rebound. Minimal epigastric tenderness on palpation. No flank or CVA tenderness. No pain at McBurney's point, negative Hoskins sign 7.MSK: Normocephalic/Atraumatic, Extremities w/o deformity or ttp No cyanosis or clubbing, Normal movement of all extremities 8.Skin: Warm, Dry. No rashes or lesions. 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 Sensation grossly intact, no focal neurologic deficits. 10.Psych: (AAO) x3. Appropriate mood and affect Course Vital Signs Temperature 36.5 C 12/30/18 07:47 Pulse 81 12/30/18 07:47 Respiratory Rate 16 12/30/18 07:47 Blood Pressure 137/74 12/30/18 07:47 Pulse Oximetry 99 12/30/18 07:47 Temperature 36.5 C 12/30/18 07:47 Temperature Source Temporal Artery Scan 12/30/18 07:47 Pulse 81 12/30/18 07:47 Respiratory Rate 16 12/30/18 07:47 Respiratory Effort 12/30/18 07:47 Blood Pressure 137/74 12/30/18 07:47 Pulse Oximetry 99 12/30/18 07:47 Oxygen Delivery Method Room Air 12/30/18 07:47 Oxygen Flow Rate 0 12/30/18 07:47 Pain Level 4 12/30/18 07:47
[2018-12-30] MEDS: Ondansetron 4 MG/2 ML VIAL IVP (08:20)
[2018-12-30] MEDS: Normal Saline 1,000 ML 1000 ML IV (08:20)
[2018-12-30 08:21] LABS: Absolute Basophil Count 0.03 k/cumm (0.0-0.2); Absolute Eosinophil Count 0.14 k/cumm (0.0-0.7); Absolute Lymphocyte Count 1.29 k/cumm (1.2-3.4); Absolute Monocyte Count 0.81 k/cumm (0.11-0.7); Absolute Neutrophil Count 2.98 k/cumm (1.2-6.7); Basophils % 0.6; Eosinophils % 2.7; HCT 39.9 % (36.0-46.0); HGB 13.5 g/dL (12.0-15.5); Lymphocytes % 24.6; Mean Corp. HGB Concentration 33.8 g/dL (32.0-36.0); Mean Corpuscular Volume 91.7 fL (80-95); Mean Platelet Volume 10.9 fL (8.0-11.0); Monocytes % 15.4; Neutrophils % 56.7; Platelet Count 226 x1000/uL (130-400); RBC 4.35 m/cumm (4.00-5.20); RBC Distribution Width 13.4 % (11.7-14.6); White Blood Cell Count 5.25 k/cumm (4.4-10.8)
[2018-12-30 08:30] LABS: ALT 46 U/L (12-78); AST 38 U/L (15-37); Albumin 3.8 g/dL (3.4-5.0); Alkaline Phosphatase 67 U/L (46-116); Anion Gap 11.2 mmol/L (3-11); BUN 13 mg/dL (7-18); Bilirubin, Total 0.4 mg/dL (0.2-1.0); CO2 26.8 mmol/L (21.0-32.0); CREATININE 0.85 mg/dL (0.55-1.02); Calcium 8.8 mg/dL (8.5-10.1); Chloride 104 mmol/L (98-107); Glucose 142 mg/dL (70-100); Potassium 3.4 mmol/L (3.5-5.1); Sodium 142 mmol/L (136-145); Total Protein 8.1 g/dL (6.4-8.2)
[2018-12-30 08:48] LABS: Lipase 152 U/L (73-393); Troponin I < 0.05 ng/mL (0.00-0.06)
[2018-12-30] MEDS: Omnipaque 350 MG/ML 100 ML BTL IJ (09:01)
--- NOTE | 2018-12-30 09:05 | DI.CT_ITS ---
SYMPTOM/DIAGNOSIS: NAUSEA, VOMITING, EPIGASTRIC PAIN ABDOMINAL AND PELVIC CT : 12/30 CT examination of the abdomen and pelvis was performed with a bolus infusion of 100 cc Omnipaque 350. Images obtained through the lung bases were unremarkable. Note is made of a bilateral L5 spondylolysis with associated spondylolisthesis of L5 on S1 of about 30% of the vertebral width. The left hepatic lobe contains a less than 1 cm in diameter low attenuation lesion probably representing hemangioma. Liver and spleen, otherwise unremarkable. Pancreas appears normal. No biliary dilatation or gallbladder abnormality by CT criteria. Adrenals and kidneys are unremarkable. No urinary tract calcification or obstruction. No abdominal wall hernia seen. No abdominal or pelvic adenopathy. Abdominal aorta is of normal diameter and major branch vessels appear intact. The stomach appears empty and there is question of wall thickening of the gastric fundus which may be related to under distension but mass or infiltrative lesion not excluded. Correlation with endoscopy may be considered. No focal small bowel pathology is seen. Appendix is normal. No evidence of diverticulitis or bowel obstruction. There is calcified uterine mass consistent with a fibroid. 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 CONCLUSION: Question of wall thickening of the gastric fundus which may simply be due to under-distension. if clinically indicated endoscopic follow up would be recommended.
[2018-12-30 09:26] VITALS: BP 131/64; PULSE 66; RESP 18; TEMP 36.6; O2SAT 96
--- NOTE | 2018-12-30 09:32 | NUR.NOTE ---
Nursing Note: LAINA haas successful. Pt denied nausea.
--- NOTE | 2019-01-07 10:55 | NUR.NOTE ---
Referral faxed to General Surgery.Nursing Note:
== END 2018-12-30 09:39 | disposition home or self-care (01) ==
PROVIDERS: Physician Assistant; Emergency Provider Student in an Organized Health Care Education/Training Program; PCP Family Medicine
DX: K31.89 Other diseases of stomach and duodenum (principal); R63.0 Anorexia; R11.0 Nausea
CPT/HCPCS: 36415; 80053; 83690; 93005; 96361; 96374; 99285; 74177; 81003; 84484; 85025; 93010; J2405; J3490

== ENCOUNTER → 2019-01-17 14:32 | Outpatient (BNVA) | payer MEDICARE, SELFPAY | PROVIDERS: PCP Family Medicine; Referring Provider Family Medicine; Visit Provider Physical Therapy Assistant | DX: R10.13 Epigastric pain (principal); I10 Essential (primary) hypertension; Z79.82 Long term (current) use of aspirin | CPT/HCPCS: 99213 ==

== ENCOUNTER 2019-02-01 07:08 | Day surgery (SDC) | payer MEDICARE, SELFPAY ==
--- NOTE | 2019-02-01 06:38 | ENDO_ITS ---
Date of service: 02/01/19 Time of Service: 09:06 Endoscopy Report DATE OF PROCEDURE: 02/01/19 PRE-OP DIAGNOSIS: Gastritis, abnormal CT scan POST-OP DIAGNOSIS: other (Chronic gastritis, esophagitis, gastric polyps) PROCEDURE: EGD with biopsies SURGEON: Carlotta Duval ANESTHESIA: other (General/ ASA 2/Gisela Lamar, SHAILESH) ESTIMATED BLOOD LOSS: 3 PATHOLOGY: other (Gastric bx, gastric polyp bx, GE junction bx) COMPLICATIONS: None DISPOSITION: same day INDICATIONS: Mrs. Joyce is a pleasant 73 year old female seen in the ER with epigastric pain. Cardiac workup was negative and she felt better after getting Carafate. Was scoped last year and was noted to have gastritis. Patient was placed on Omeprazole. PROCEDURE START TIME: : FINDINGS: mild chronic gastritis gastric polyps mild to moderate esophagitis PROCEDURE DESCRIPTION: After informed consent was obtained the patient was take to the procedure room and placed in a supine position. Monitors were applied and a time out was done. The patients name, date of , procedure type, allergies to medications and metal in their body was reviewed. A bite block was placed and the patient was sedated. Once sedated and comfortable the gastroscope was advanced through the oropharynx which was grossly normal into the esophagus. The proximal and mid- esophagus were normal. In the distal esophagus there was irregularity of the Z line noted and mild inflammation noted. The scope was advanced into the stomach and through the pylorus into the 3rd portion of the duodenum. The duodenum was noted to be normal. The scope was retracted back into the stomach and biopsies were done to rule out H. pylori. The lining of the stomach looked like cobbelstone and random biopsies were done. No masses noted. There were a few benign fundic gland polyps. There was one red polyps which was biopsied as well. There were no ulcers. The scope was retro-flexed. The cardia and fundus were noted to be normal. There was a small hiatal hernia noted. The scope was retracted back into the esophagus and biopsies were done of the GE junction to r ule out Dunham's. The Z line was irregular. There were 2 areas about 1 cm in length that looked like Dunham's. Theses areas were biopsied. The GE junction was at 35 cm. The scope was removed and the patient was woken up and taken back to [facility] in stable condition. Follow up: with PCP in 2-3 weeks. Continue Omeprazole and Carafate. Low acid diet
--- NOTE | 2019-02-01 06:39 | W.PM.DSUDISC ---
Discharge Plan Disposition Patient Disposition: HOME Condition: Good Discharge Details Reason For Visit: Epigastric pain, abnormal CT scan Attending Provider: Carlotta Duval Primary Care Provider: Zaynab Thacker V Home Meds and New Rx's Prescriptions: Continued potassium 99 mg tablet 99 mg PO DAILY RF: 0 sennosides [Senokot] 8.6 MG tablet 2 tab-cap PO HS RF: 0 cod liver oil 1 EACH capsule 1 ea PO HS RF: 0 aspirin [Aspirin Low Dose] 81 MG tablet,delayed release (DR/EC) 81 mg PO DAILY RF: 0 gabapentin 100 MG capsule 400 mg PO HS RF: 0 lisinopril 2.5 MG tablet 2.5 mg PO DAILY RF: 0 vitamin E (dl, acetate) 100 UNIT capsule 100 unit PO HS RF: 0 omega-3 fatty acids-fish oil 1 EACH capsule 2 ea PO DAILY RF: 0 trazodone 50 MG tablet 50 mg PO HS RF: 0 simvastatin 80 MG tablet 80 mg PO QPM RF: 0 meclizine [Antivert] 25 MG tablet 25 mg PO Q6H PRN PRNRF: 0 cyanocobalamin (vitamin B-12) 1,000 MCG/1 ML solution 1,000 mcg IJ DIRECTED RF: 0 cetirizine 10 MG tablet,chewable 10 mg PO DAILY RF: 0 cholecalciferol (vitamin D3) 1,000 UNITS tablet 2,000 unit PO DAILY RF: 0 omeprazole 20 mg capsule,delayed release(DR/EC) 20 mg PO DAILY RF: 0 Tonia-C with Bioflavonoids 500-200 mg tablet 1 tab PO DAILY RF: 0 pyridoxine (vitamin B6) [Vitamin B-6] 100 MG tablet 100 mg PO HS RF: 0 triamcinolone acetonide 0.1 % Cream 1 applic TOPICAL BID RF: 0 ibuprofen 400 mg Tablet 400 mg PO .W/DINNER PRNRF: 0 acetaminophen 500 mg Capsule 1,000 mg PO TID RF: 0 melatonin 10 mg Tablet 1 tab PO HS RF: 0 ondansetron HCl [Zofran] 4 mg tablet 4 mg PO BID-TID PRN (Reason: nausea and vomiting) Qty: 10 RF: 0 sucralfate [Carafate] 1 gram tablet 1 gm PO QACHS Qty: 30 RF: 0 Discharge Instructions Instructions: Diet for Stomach Ulcers and Gastritis (ED), Gastritis (ED) Additional Instructions: Findings: mild chronic gastritis, benign gastric polyps Small Hiatal Hernia, esophagitis Follow up: with PCP in 2-3 weeks Please call if you develop: fevers >101.5 Nausea or Vomiting Abdominal pain that is not transient DAY SURGERY UNIT POST COLONOSCOPY INSTRUCTIONS 1. Because there will be medication in your system for the next 24 hours, you may feel a little sleepy. Your coordination will be affected. Therefore: a. Do not drive or operate dangerous equipment for 24 hours. b. Do not drink alcohol beverages for 24 hours (not even beer). c. Plan to go home and rest for the day. 2. Generally there are no restrictions on your activity after a day or so has gone by, but you may feel a bit fatigued for a few days. 3 After you arrive home you may have a light meal and return to a normal diet as you can tolerate it without feeling sick to your stomach. 4. After surgery, you may feel pain or discomfort. This should be only transient, but if it persists please contact your doctor. 5. If there are any questions regarding the findings of your procedure, please feel free to contact your doctor. 6. If you are unable to contact your doctor with a problem, contact the hospital at [phone]. 7. Continue all your regular medications unless directed otherwise. I understand the above instructions and have no questions. Signature of Patient or Responsible Adult Escort Date/Time Name of Responsible Adult Escort Signature of Nurse Date/Time Stand Alone Forms: DSU Post EGD Instructions, Shon Saxena (DSU) Activity:: Activity as Tolerated Diet:: low acid Discharge Orders Discharge Orders: Discharge Order (Routine); Ordered 02/01/19 Ordered By: Carlotta Duval DS: Diagnosis Discharge Diagnosis (1) H/O esophagogastroduodenoscopy: (2) Chronic gastritis: (3) Esophagitis:
[2019-02-01 07:36] VITALS: BP 121/68; PULSE 58; RESP 16; TEMP 36.1; O2SAT 96
[2019-02-01] MEDS: Lactated Ringers 1,000 ML 80 ML IV (07:59)
--- NOTE | 2019-02-01 09:10 | STOM_PTH ---
PATIENT: Kaley Joyec LOC: [facility] U#:[id number] AGE/SX: 73/F ROOM: RE02/01/[address]: Carlotta Duval MD : [id number] BED: DIS: 02/01/2019 SPEC #: [id number] RECD: 02/01/19 12:47 STATUS: CANDELARIA RE #: [id number] SOFIA: 02/01/19 09:[address]: Carlotta Duval DEPT: Surgical Specimen RECD BY: Khushbu Whitehead ENTERED: 02/01/19 12:49 SP TYPE: STOMACH OTHR DR: Zaynab Thacker V Tissues: 1 - STOMACH BIOPSY 2 - STOMACH BIOPSY 3 - STOMACH BIOPSY 4 - ESOPHAGUS BIOPSY Procedures: GROSS AND MICRO LEVEL 4 Comments: [id number]
[2019-02-01 10:00] VITALS: BP 111/62; PULSE 57; RESP 16; TEMP 36.8; O2SAT 96
== END 2019-02-01 10:34 | disposition home or self-care (01) ==
PROVIDERS: PCP Family Medicine; Visit Provider Surgery
PROC: 0DJ68ZZ Inspection of Stomach, Via Natural or Artificial Opening Endoscopic (ICD-10-PCS; CPT 43235; principal; 2019-02-01 08:45)
DX: K29.50 Unspecified chronic gastritis without bleeding (principal); R93.3 Abnormal findings on diagnostic imaging of other parts of digestive tract; K31.7 Polyp of stomach and duodenum; K20.9 Esophagitis, unspecified; I10 Essential (primary) hypertension
CPT/HCPCS: 43239; 88305

== ENCOUNTER → 2019-03-29 09:54 | Outpatient (BNVA) | payer MEDICARE, SELFPAY | PROVIDERS: PCP Family Medicine; Referring Provider Family Medicine; Visit Provider Nurse Practitioner Adult Health | DX: G56.03 Carpal tunnel syndrome, bilateral upper limbs (principal); E11.42 Type 2 diabetes mellitus with diabetic polyneuropathy; I10 Essential (primary) hypertension | CPT/HCPCS: 95909; 99203; 99214 ==

== ENCOUNTER → 2019-04-10 09:10 | Outpatient (BNVA) | payer MEDICARE, SELFPAY | PROVIDERS: PCP Family Medicine; Referring Provider Family Medicine; Visit Provider Student in an Organized Health Care Education/Training Program | DX: G56.02 Carpal tunnel syndrome, left upper limb (principal); G56.01 Carpal tunnel syndrome, right upper limb | CPT/HCPCS: 99214 ==

== ENCOUNTER 2019-04-26 13:29 | Outpatient (CLI) | payer MEDICARE, SELFPAY ==
--- NOTE | 2019-04-26 13:05 | HPE_ITS ---
Date of service: 04/26/19 Assessment and Plan Assessment and plan (1) Carpal tunnel syndrome of right wrist: Status: Acute Assessment and plan: Right ECTR followed two weeks by a left ECTR Details of surgery were discussed with patient as well as myself anatomy. All questions were answered. (2) Carpal tunnel syndrome of left wrist: Status: Acute Assessment and plan: Left ECTR History of Present Illness History of Present Illness Chief Complaint: B/L hand numbness and pain, R worse than L Narrative: Kaley is a 73 year old female who comes in today for a preop hisotry and physical for b/l ECTR surgery, right first, then left two weeks later. She has had bilateral hand numbness and tingling and also some pain as well. She states that she has increased symptoms when she is driving or trying to do anything with her hands. She specifically states living in [facility] causes her hands to become relatively useless. She ends up using a brace whenever she does not activities in order to be able to do that for long periods of time. At this point she also is dropping things with her she picks them up including glasses or mugs. She has had nerve studies which confirmed carpal tunnel syndrome, right worse than left. Since she has failed conservative treatment and continues to have symptoms, she is offered B/L ECTR, right then left, and she is anxious to proceed. Pertinent Surgical Information Patient denies history of CVA, PA, angina, asthma, COPD, renal or liver disorders, hepatitis, bleeding disorders, diabetes, immune or thyroid disorders. No complications from anesthesia. Review of Systems Constitutional Constitutional: Denies fever(s) ENT Ears, Nose, Mouth, and Throat: Denies dizziness and Denies sore throat Cardiovascular Cardiovascular: Denies chest pain, Denies palpitations and Denies dyspnea Respiratory Respiratory: Denies cough and Denies dyspnea Gastrointestinal Gastrointestinal: Denies abdominal pain, Denies melena, Denies hematochezia, Denies diarrhea, Denies nausea and Denies vomiting Genitourinary Genitourinary: Denies hematuria and Denies dysuria Neurologic Neurologic: Denies dizziness Endocrine Endocrine: Denies palpitations [facility] Medical History (Updated 04/10/19 @ 09:58 by FROILAN Galindo) Abdominal pain (Acute) Adenomatous colon polyp (Acute) Allergic rhinitis (Acute) Anxiety Arthritis (Acute) Cataract Cataract, bilateral (Acute) Chronic gastritis (Acute) Cortical cataract of left eye (Resolved) Cortical cataract of right eye (Resolved) CTS (carpal tunnel syndrome) (Acute) Diabetes mellitus (Chronic) Diabetes mellitus type 2, controlled (Acute) controlled with diet per pt. Eczema (Acute) Esophagitis (Acute) Fracture of right lower extremity (Acute) Fracture of right lower leg (Acute) Gait abnormality (Acute) GERD (gastroesophageal reflux disease) Grief reaction (Acute) H pylori ulcer Headache (Acute) Heart murmur (Acute) Heart murmur, systolic (Acute) Helicobacter pylori (H. pylori) infection (Acute) Hip pain (Acute) HTN (hypertension) (Chronic) Hyperlipidemia Hyperparathyroidism (Acute) pt. is unsure if she has this condition Low back pain (Acute) Migraine Nuclear sclerotic cataract of left eye (Resolved) Nuclear sclerotic cataract of right eye (Resolved) Onychomycosis (Acute) Onychomycosis of toenail (Acute) Palpitations (Acute) Peripheral neuropathy (Acute) Right hip pain (Acute) Urinary incontinence (Acute) Vertigo Vitamin B12 deficiency (Acute) Surgical History (Updated 04/26/19 @ 13:11 by FROILAN Galindo) Colonoscopy - IV Sedation (01/06/17) H/O esophagogastroduodenoscopy (Chronic ~02/01/19) 2018-Gastritis Right Leg fracture pt reports metal plate in right leg Status post cataract extraction and insertion of intraocular lens of left eye (Inactive 08/22/18) Status post cataract extraction and insertion of intraocular lens of right eye (Inactive 08/08/18) Tubal Ligation, Social History Smoking/Tobacco Use Status: Never Alcohol Intake: never Drug use: Never Substance use type: does not use Household members: none Housing: house Number of Children: 2 Pets and animals: Yes Pets and animals: cat(s) and dog(s) Current gender identity: female What is your relationship status?: Panel score (0-1 are the most socially isolated patients): 0 What type of physical activity do you participate in: additional Details: yard work and gardening Do you feel safe at home: Yes Do you feel safe in your relationship?: Yes Meds Home Medications and Allergies Home Medications Medication Instructions Recorded Confirmed Type cetirizine 10 mg PO DAILY 08/29/13 10/07/19 History cholecalciferol (vitamin D3) 2,000 unit PO DAILY 03/02/13 04/10/19 History cyanocobalamin (vitamin B-12) 1,000 mcg IJ DIRECTED 03/02/13 04/10/19 History trazodone 50 mg PO HS 03/02/13 04/10/19 History cod liver oil 1 ea PO HS NS 11/02/17 04/10/19 History gabapentin 400 mg PO HS NS 11/02/17 04/10/19 History lisinopril 2.5 mg PO DAILY tab-cap NS 11/02/17 04/10/19 History omega-3 fatty acids-fish oil 2 ea PO DAILY NS 11/02/17 04/10/19 History sennosides [Senokot] 2 tab-cap PO HS tab-cap NS 11/02/17 04/10/19 History vitamin E (dl, acetate) 100 unit PO HS NS 11/02/17 04/10/19 History pyridoxine (vitamin B6) [Vitamin 100 mg PO HS 11/15/17 04/10/19 History B-6] acetaminophen 1,000 mg PO TID 08/04/18 04/10/19 History triamcinolone acetonide 1 applic TOPICAL BID 08/04/18 04/10/19 History melatonin 1 tab PO HS 08/08/18 04/10/19 History ascorbate calcium-bioflavonoid 500 1 tab PO DAILY tab 08/24/18 04/10/19 History mg-200 mg tablet omeprazole 20 mg capsule,delayed 20 mg PO DAILY cap 08/24/18 04/10/19 History release potassium 99 mg tablet 99 mg PO DAILY 12/01/18 04/10/19 History awsttawtrl-zjjshkbmbljmg-pfqsmzzo 1 cap PO ONCE PRN cap 03/17/19 04/10/19 History 50 mg-300 mg-40 mg capsule simvastatin 40 mg tablet 40 mg PO DAILY 03/17/19 04/10/19 History Allergies Allergy/AdvReac Type Severity Reaction Status Date / Time adhesive Allergy Intermediate itchy rash Verified 04/26/19 13:02 niacin Allergy Intermediate Skin Rash Verified 04/26/19 13:02 Sulfa (Sulfonamide Allergy Intermediate Skin Rash Verified 04/26/19 13:02 Antibiotics) codeine AdvReac Intermediate VOMITING Verified 04/26/19 13:02 morphine AdvReac Mild vomiting Verified 04/26/19 13:02 Exam HENPR Head: normocephalic and atraumatic General nose exam: no nasal discharge Throat: uvula midline and no uvular edema Other: soft palate rises symmetrically, no erythema Eyes Conjunctivae: conjunctivae normal Sclera: sclerae normal Pupils: PERRL Resp Effort & Inspection: normal respiratory effort Auscultation: clear to auscultation bilaterally and no wheezes Cardio Rate: regular rate Rhythm: regular rhythm Heart Sounds: S1 normal, S2 normal and no murmurs GI Palpation: soft, no hepatosplenomegaly and nontender Auscultation: normal bowel sounds
== END 2019-04-26 13:49 ==
PROVIDERS: PCP Family Medicine; Visit Provider Student in an Organized Health Care Education/Training Program
DX: G56.01 Carpal tunnel syndrome, right upper limb (principal); G56.02 Carpal tunnel syndrome, left upper limb; Z01.818 Encounter for other preprocedural examination
CPT/HCPCS: NC

== ENCOUNTER 2019-05-03 08:32 | Day surgery (SDC) | payer MEDICARE, SELFPAY ==
[2019-05-03 08:53] VITALS: BP 108/66; PULSE 69; RESP 16; TEMP 36.4; O2SAT 96
[2019-05-03] MEDS: Lactated Ringers 1,000 ML 80 ML IV ×2 (09:35→11:07)
--- NOTE | 2019-05-03 10:01 | W.PM.DSUDISC ---
Documented by User: Lory Burciaga 05/03/19 10:09 Discharge Plan Disposition Patient Disposition: HOME Condition: Good Discharge Details Reason For Visit: (R) CTS Attending Provider: Ramses Gabriel Primary Care Provider: Zaynab Thacker V Home Meds and New Rx's Prescriptions: New acetaminophen 500 mg tablet 500 mg PO Q6H PRN (Reason: pain) Qty: 60 RF: 2 Continued potassium 99 mg tablet 99 mg PO DAILY RF: 0 gabapentin 300 mg capsule 300 mg PO DIRECTED 30 Days Qty: 102 RF: 0 sennosides [Senokot] 8.6 MG tablet 2 tab-cap PO HS RF: 0 cod liver oil 1 EACH capsule 1 ea PO HS RF: 0 lisinopril 2.5 MG tablet 2.5 mg PO DAILY RF: 0 vitamin E (dl, acetate) 100 UNIT capsule 100 unit PO HS RF: 0 omega-3 fatty acids-fish oil 1 EACH capsule 2 ea PO DAILY RF: 0 ipjcwmfkwm-krbsttnansatu-heke [Fioricet] 50-300-40 mg capsule 1 cap PO ONCE PRNRF: 0 simvastatin 40 mg tablet 40 mg PO DAILY RF: 0 trazodone 50 MG tablet 50 mg PO HS RF: 0 cyanocobalamin (vitamin B-12) 1,000 MCG/1 ML solution 1,000 mcg IJ DIRECTED RF: 0 cetirizine 10 MG tablet,chewable 10 mg PO DAILY RF: 0 cholecalciferol (vitamin D3) 1,000 UNITS tablet 2,000 unit PO DAILY RF: 0 omeprazole 20 mg capsule,delayed release(DR/EC) 20 mg PO DAILY RF: 0 Tonia-C with Bioflavonoids 500-200 mg tablet 1 tab PO DAILY RF: 0 pyridoxine (vitamin B6) [Vitamin B-6] 100 MG tablet 100 mg PO HS RF: 0 triamcinolone acetonide 0.1 % Cream 1 applic TOPICAL BID RF: 0 acetaminophen 500 mg Capsule 1,000 mg PO TID RF: 0 melatonin 10 mg Tablet 1 tab PO HS RF: 0 Discharge Instructions Stand Alone Forms: Nery Ruano Tunnel Release, DSU Post op Instructions, Shon Saxena (DSU) Referrals: Ramses Gabriel MD [ [facility] STAFF PHYSICIAN] - Activity:: Elevate Remove Dressings/Wound Care:: 72 hours Shower/Bathe:: 72 hours Diet:: As Tolerated Discharge Orders Discharge Orders: Discharge Order (Routine); Ordered 05/03/19 Ordered By: Lory Burciaga DS: Diagnosis Discharge Diagnosis (1) Carpal tunnel syndrome of right wrist: Status: Acute Documented by User: Ramses Gabriel MD 05/03/19 11:23 Discharge Plan Disposition Patient Disposition: HOME Condition: Good Discharge Details Reason For Visit: (R) CTS Attending Provider: Ramses Gabriel Primary Care Provider: Zaynab Thacker V Home Meds and New Rx's Prescriptions: New acetaminophen 500 mg tablet 500 mg PO Q6H PRN (Reason: pain) Qty: 60 RF: 2 Continued potassium 99 mg tablet 99 mg PO DAILY RF: 0 gabapentin 300 mg capsule 300 mg PO DIRECTED 30 Days Qty: 102 RF: 0 sennosides [Senokot] 8.6 MG tablet 2 tab-cap PO HS RF: 0 cod liver oil 1 EACH capsule 1 ea PO HS RF: 0 lisinopril 2.5 MG tablet 2.5 mg PO DAILY RF: 0 vitamin E (dl, acetate) 100 UNIT capsule 100 unit PO HS RF: 0 omega-3 fatty acids-fish oil 1 EACH capsule 2 ea PO DAILY RF: 0 iynptmkaqs-wzxmfvgqyttve-bkfd [Fioricet] 50-300-40 mg capsule 1 cap PO ONCE PRNRF: 0 simvastatin 40 mg tablet 40 mg PO DAILY RF: 0 trazodone 50 MG tablet 50 mg PO HS RF: 0 cyanocobalamin (vitamin B-12) 1,000 MCG/1 ML solution 1,000 mcg IJ DIRECTED RF: 0 cetirizine 10 MG tablet,chewable 10 mg PO DAILY RF: 0 cholecalciferol (vitamin D3) 1,000 UNITS tablet 2,000 unit PO DAILY RF: 0 omeprazole 20 mg capsule,delayed release(DR/EC) 20 mg PO DAILY RF: 0 Tonia-C with Bioflavonoids 500-200 mg tablet 1 tab PO DAILY RF: 0 pyridoxine (vitamin B6) [Vitamin B-6] 100 MG tablet 100 mg PO HS RF: 0 triamcinolone acetonide 0.1 % Cream 1 applic TOPICAL BID RF: 0 acetaminophen 500 mg Capsule 1,000 mg PO TID RF: 0 melatonin 10 mg Tablet 1 tab PO HS RF: 0 Discharge Instructions Stand Alone Forms: Nery Ruano Tunnel Release, DSU Post op Instructions, Shon Saxena (DSU) Referrals: Ramses Gabriel MD [ [facility] STAFF PHYSICIAN] - Activity:: Elevate Remove Dressings/Wound Care:: 72 hours Shower/Bathe:: 72 hours Diet:: As Tolerated Discharge Orders Discharge Orders: Discharge Order (Routine); Ordered 05/03/19 Ordered By: Lory Burciaga
[2019-05-03] MEDS: ceFAZolin 2 GM/50 ML BAG IVPB (10:54)
[2019-05-03] MEDS: Sodium Bicarbonate 50 MEQ/50 ML VIAL (10:58)
[2019-05-03 11:56] VITALS: BP 100/61; PULSE 61; RESP 16; TEMP 37.2; O2SAT 98
--- NOTE | 2019-05-03 17:37 | W.PM.OP ---
Date of service: 05/03/19 Time of Service: 17:37 Operative Note Operative Note DATE OF PROCEDURE: 05/03/19 PRE-OP DIAGNOSIS: Right Carpal Tunnel Syndrome POST-OP DIAGNOSIS: same PROCEDURE: Right Endoscopic Carpal Tunnel Release SURGEON: Ramses Gabriel ANESTHESIA: GETEstrada ESTIMATED BLOOD LOSS: 0 PATHOLOGY: none sent TOURNIQUET TIME: 6 COMPLICATIONS: None Patient was transported to: same day Patient's condition: stable Indications: I have seen Kaley in clinic for symptoms of carpal tunnel syndrome. The numbness, tingling, and pain limited function. Clinical exam findings with nerve conduction tests confirmed the diagnosis of carpal tunnel syndrome. Nonoperative measures such as bracing, time, activity modifications had been tried but disability and pain persisted. I discussed carpal tunnel release with the patient. I reviewed the risks of the procedure to include, but not limited to, bleeding, infection, pain, stiffness, incomplete release, damage to nerves or vessels, persistent numbness, recurrence. Despite these risks, the patient elected to proceed. Findings: There was tightened carpal tunnel. This was dilated and released successfully with the endoscopic with increased space within the tunnel. The antebrachial fascia was released proximally freeing the median nerve at the wrist. Procedure Description: Kaley was greeted in the preoperative holding area where the correct side was identified and marked. The consent was reviewed with the patient and signed. The history and physical was updated. All questions were answered. Kaley was taken back to the operating room. The patient was placed into the supine position on the operating room table with the right arm on an arm board. A nonsterile tourniquet was placed high onto the arm. All bony prominences were well padded. Prophylactic antibiotics in the form of Cefazolin were administered. The right arm was then prepped with Chloraprep and draped in a standard fashion with stockinette and extremity drape. A timeout to confirm correct identity, side and site, procedure, allergies, anesthesia, and medical concerns was performed. The surgical site was marked in the volar wrist creases in line with the radial border of the fourth ray. This area was anesthetized with approximately 6cc of 1% Lidocaine. The limb was then exsanguinated with an Esmarch. The skin was incised with a 15 blade, approximately 1cm. The skin only was cut and the deeper tissue was dissected bluntly with a tenotomy scissor, avoiding passing nerve and venous structures. The fascia was penetrated and opened bluntly. A two-prong skin hook was placed under this proximal fascial edge. A series of hamate finders were used to identify and dilate the carpal tunnel. Synovial elevator was used to free synovial attachments to the underside of the transverse carpal ligament. My thumb was kept in the palm to wes the distal extent of the carpal tunnel and correctly position the hand. The [employer]aire endoscope was inserted without difficulty and without resistance. Excellent visualization showed horizontally running fibers of the transverse carpal ligament (TCL). The distal extent of the TCL was visualized and the end of the scope palpated with the thumb. The blade was elevated and withdrawn from distal to proximal. The TCL was split into two flaps. The endoscope was reinserted to confirm complete release and any remnant ligament was incised. The scope was withdrawn and the proximal aspect of the carpal tunnel was grossly inspected and appeared release with the median nerve visible. The antebrachial fascia at the level of the wrist was then freed from the overlying skin and then the underlying median nerve with blunt dissection. This was transected longitudinally for about 3cm proximal to the wrist incision. The wound was then irrigated with easy flow of irrigant distally and proximally. The incision was closed with a single 4-0 Nylon suture. The wound was dressed with Xeroform, Gauze, Kerlix and Jorden. The tourniquet was deflated with the initial dressing and held with some pressure. Blood flow returned easily to all digits with capillary refill less than 2 seconds. The patient tolerated the procedure well and was returned to the Same Day Surgery area in a stable condition suffering no known complication.
== END 2019-05-03 12:10 | disposition home or self-care (01) ==
PROVIDERS: PCP Family Medicine; Visit Provider Student in an Organized Health Care Education/Training Program
PROC: 01N54ZZ Release Median Nerve, Percutaneous Endoscopic Approach (ICD-10-PCS; CPT 29848; principal; 2019-05-03 10:45)
DX: G56.01 Carpal tunnel syndrome, right upper limb (principal)
CPT/HCPCS: 29848; J0690; L3650

== ENCOUNTER → 2019-05-15 12:47 | Outpatient (BNVA) | payer MEDICARE, SELFPAY | PROVIDERS: PCP Family Medicine; Referring Provider Family Medicine; Visit Provider Student in an Organized Health Care Education/Training Program | DX: Z47.89 Encounter for other orthopedic aftercare (principal); G56.02 Carpal tunnel syndrome, left upper limb; G56.01 Carpal tunnel syndrome, right upper limb ==

== ENCOUNTER 2019-05-16 06:14 | Day surgery (SDC) | payer MEDICARE, SELFPAY ==
[2019-05-16 06:39] VITALS: BP 103/54; PULSE 71; RESP 16; TEMP 37.2; O2SAT 97
[2019-05-16] MEDS: Lactated Ringers 1,000 ML 80 ML IV (07:11)
[2019-05-16] MEDS: ceFAZolin 2 GM/50 ML BAG IVPB (07:23)
--- NOTE | 2019-05-16 07:23 | PDOC.DSDIS_ITS ---
Discharge Plan Disposition Patient Disposition: HOME Condition: Good Discharge Details Reason For Visit: Left ECTR Attending Provider: Ramses Gabriel Primary Care Provider: Zaynab Thacker V Home Meds and New Rx's Prescriptions: No Action potassium 99 mg tablet 99 mg PO DAILY RF: 0 gabapentin 300 mg capsule 300 mg PO DIRECTED 30 Days Qty: 102 RF: 0 sennosides [Senokot] 8.6 MG tablet 2 tab-cap PO HS RF: 0 cod liver oil 1 EACH capsule 1 ea PO HS RF: 0 lisinopril 2.5 MG tablet 2.5 mg PO DAILY RF: 0 vitamin E (dl, acetate) 100 UNIT capsule 100 unit PO HS RF: 0 omega-3 fatty acids-fish oil 1 EACH capsule 2 ea PO DAILY RF: 0 qgcxcsjdkr-worqygnvdmkki-mjgn [Fioricet] 50-300-40 mg capsule 1 cap PO ONCE PRNRF: 0 simvastatin 40 mg tablet 40 mg PO DAILY RF: 0 trazodone 50 MG tablet 50 mg PO HS RF: 0 cyanocobalamin (vitamin B-12) 1,000 MCG/1 ML solution 1,000 mcg IJ DIRECTED RF: 0 cetirizine 10 MG tablet,chewable 10 mg PO DAILY RF: 0 cholecalciferol (vitamin D3) 1,000 UNITS tablet 2,000 unit PO DAILY RF: 0 omeprazole 20 mg capsule,delayed release(DR/EC) 20 mg PO DAILY RF: 0 Tonia-C with Bioflavonoids 500-200 mg tablet 1 tab PO DAILY RF: 0 pyridoxine (vitamin B6) [Vitamin B-6] 100 MG tablet 100 mg PO HS RF: 0 triamcinolone acetonide 0.1 % Cream 1 applic TOPICAL BID RF: 0 acetaminophen 500 mg Capsule 1,000 mg PO TID RF: 0 melatonin 10 mg Tablet 1 tab PO HS RF: 0 acetaminophen 500 mg tablet 500 mg PO Q6H PRN (Reason: pain) Qty: 60 RF: 2 Discharge Instructions Stand Alone Forms: Nery Ruano Tunnel Release Referrals: Ramses Gabriel MD [ [facility] STAFF PHYSICIAN] - Activity:: Elevate Remove Dressings/Wound Care:: 72 hours Shower/Bathe:: 72 hours Diet:: As Tolerated Discharge Orders Discharge Orders: Discharge Order (Routine); Ordered 11/12/19 Ordered By: Ramses Gabriel DS: Diagnosis Discharge Diagnosis (1) Carpal tunnel syndrome of left wrist: Status: Acute
[2019-05-16] MEDS: Lidocaine 1% Multi-Dose 50 ML VIAL (07:32)
[2019-05-16] MEDS: Sodium Bicarbonate 50 MEQ/50 ML VIAL (07:32)
--- NOTE | 2019-05-16 07:49 | ROE_ITS ---
Date of service: 05/16/19 Time of Service: 07:49 Operative Note Operative Note DATE OF PROCEDURE: 05/16/19 PRE-OP DIAGNOSIS: Left Carpal Tunnel Syndrome POST-OP DIAGNOSIS: same PROCEDURE: Left Endoscopic Carpal Tunnel Release SURGEON: Ramses Gabriel ANESTHESIA: GETEstrada ESTIMATED BLOOD LOSS: 0 PATHOLOGY: none sent TOURNIQUET TIME: 11 COMPLICATIONS: None Patient was transported to: same day Patient's condition: stable Indications: I have seen Kaley in clinic for symptoms of carpal tunnel syndrome. The numbness, tingling, and pain limited function. Clinical exam findings with nerve conduction tests confirmed the diagnosis of carpal tunnel syndrome. Nonoperative measures such as bracing, time, activity modifications had been tried but disability and pain persisted. I discussed carpal tunnel release with the patient. I reviewed the risks of the procedure to include, but not limited to, bleeding, infection, pain, stiffness, incomplete release, damage to nerves or vessels, persistent numbness, recurrence. Despite these risks, the patient elected to proceed. Findings: There was tightened carpal tunnel. This was dilated and released although recheck was limited by significant synovitis. The antebrachial fascia was released proximally freeing the median nerve at the wrist. Procedure Description: Kaley was greeted in the preoperative holding area where the correct side was identified and marked. The consent was reviewed with the patient and signed. The history and physical was updated. All questions were answered. Kaley was taken back to the operating room. The patient was placed into the supine position on the operating room table with the left arm on an arm board. A nonsterile tourniquet was placed high onto the arm. All bony prominences were well padded. Prophylactic antibiotics in the form of Cefazolin were administered. The left arm was then prepped with Chloraprep and draped in a standard fashion with stockinette and extremity drape. A timeout to confirm correct identity, side and site, procedure, allergies, anesthesia, and medical concerns was performed. The surgical site was marked in the volar wrist creases in line with the radial border of the fourth ray. This area was anesthetized with approximately 6cc of 1% Lidocaine. The limb was then exsanguinated with an Esmarch. The skin was incised with a 15 blade, approximately 1cm. The skin only was cut and the deeper tissue was dissected bluntly with a tenotomy scissor, avoiding passing nerve and venous structures. The fascia was penetrated and opened bluntly. A two-prong skin hook was placed under this proximal fascial edge. A series of hamate finders were used to identify and dilate the carpal tunnel. Synovial elevator was used to free synovial attachments to the underside of the transverse carpal ligament. My thumb was kept in the palm to wes the distal extent of the carpal tunnel and correctly position the hand. The Microaire endoscope was inserted without difficulty and without resistance. Excellent visualization showed horizontally running fibers of the transverse carpal ligament (TCL). The distal extent of the TCL was visualized and the end of the scope palpated with the thumb. The blade was elevated and withdrawn from distal to proximal. The TCL was split into two flaps. The endoscope was reinserted to confirm complete release and any remnant ligament was incised. The scope was withdrawn and the proximal aspect of the carpal tunnel was grossly inspected and appeared release with the median nerve visible. The antebrachial fascia at the level of the wrist was then freed from the overl darrian skin and then the underlying median nerve with blunt dissection. This was transected longitudinally for about 3cm proximal to the wrist incision. The wound was then irrigated with easy flow of irrigant distally and proximally. The incision was closed with a single 4-0 Nylon suture. The wound was dressed with Xeroform, Gauze, Kerlix and Jorden. The tourniquet was deflated with the initial dressing and held with some pressure. Blood flow returned easily to all digits with capillary refill less than 2 seconds. The patient tolerated the procedure well and was returned to the Same Day Surgery area in a stable condition suffering no known complication.
[2019-05-16 08:20] VITALS: BP 112/67; PULSE 59; RESP 16; TEMP 36.3; O2SAT 94
== END 2019-05-16 09:17 | disposition home or self-care (01) ==
PROVIDERS: PCP Family Medicine; Visit Provider Student in an Organized Health Care Education/Training Program
PROC: 01N54ZZ Release Median Nerve, Percutaneous Endoscopic Approach (ICD-10-PCS; CPT 29848; principal; 2019-05-16 07:30)
DX: G56.02 Carpal tunnel syndrome, left upper limb (principal); E11.9 Type 2 diabetes mellitus without complications; I10 Essential (primary) hypertension
CPT/HCPCS: 29848; J0690; J1885

== ENCOUNTER → 2019-05-25 09:38 | Outpatient (BNVA) | payer MEDICARE, SELFPAY | PROVIDERS: PCP Family Medicine; Referring Provider Family Medicine; Visit Provider Student in an Organized Health Care Education/Training Program | DX: Z47.89 Encounter for other orthopedic aftercare (principal); G56.02 Carpal tunnel syndrome, left upper limb ==

== ENCOUNTER 2019-05-25 11:35 | Outpatient (CLI) | payer MEDICARE, SELFPAY ==
--- NOTE | 2019-05-25 06:00 | DI.RAD_ITS ---
EXAM: XR PAIN CLINIC LUMBAR SP 2V CLINICAL HISTORY: LUMBAR EPIDURAL STEROID INJECTION TECHNIQUE: Realtime digital imaging was performed. COMPARISON: No exams were available for comparison FINDINGS: Fluoroscopy was utilized by Dr. Lobo during the performance of a lumbar epidural steroid injection. No te is made of grade 2 spondylolisthesis of L5 on S1. Please see the procedure report for complete de tails. Fluoro Time: 26.9 seconds
[2019-05-25 11:48] VITALS: BP 109/69; PULSE 71; RESP 16; TEMP 36.9; O2SAT 96
--- NOTE | 2019-05-25 11:55 | PDOC.PAIN_ITS ---
Pain Clinic Procedure Note Procedure Note Procedure Note: Lumbar Epidural Steroid Injection Procedure Note COMMENTS: patient suffers from chronic back pain with bilateral leg pain, sometimes radiation to left lower back and left hip area. She has lumbar central spinal stenosis as shwon on MRI L spine where L3-4 and L4-5 shows most severe central canal stenosis and L5 spondylolysis causing mild L5-S1 spondylolisthesis. She was offered L3-5 decompressive laminectomy with bony fusion by Dr Chavez from [facility] [place] spine center, however, pt would like to hold off on surgical intervention and would like to proceed with a trial of lumbar epidural steroid injections first to see if her pain is improved. MENDY ALMARAZ has been referred to the Pain Management Center for lumbar epidural steroid injection. The patient was greeted by the nurse who verified patients name and . Patient was then taken to the fluoroscopy suite. The patient was interviewed and the medial record reviewed. There were no medical, pharmacologic, radiographic, or other structural contraindications to attempting fluoroscopically guided lumbar epidural steroid injection. Risks and expected side effects as well as potential benefits of the procedure were reviewed and voiced concerns expressed. The patient consent form was signed and witnessed. Standard patient time-out procedure was performed. The patient was placed in the prone position on the fluoroscopy table and automated blood pressure cuff and pulse oximeter applied. The skin entry point for entering/approaching the epidural space by a L5-S1 and marked. Following thorough chlorhexadine preparation of the skin and draping and 1% lidocaine infiltration of the skin entry point and subcutaneous tissues, a 18 gauge Touhy needle was placed under fluoroscopic guidance and with loss of resistance t echnique into the epidural space. Needle tip placement and depth were aided and confirmed by fluoroscopy. There was no paresthesia or return of blood or CSF through the needle. 1 cc's of Omnipaque 240 was injected with clear epidural spread confirmed with fluoroscopy. 80mg depomedrol was injected. 0.5cc of preservative free 1% lidocaine with 1cc of preservative free normal saline was injected to flush out the steroid from the Touhy needle. There was not any unusual discomfort expressed by MENDY ALMARAZ. Patient's vital signs were stable throughout the procedure and were as recorded in nursing records. Follow up plans and appointments were discussed with patient. Post procedure instruction was given as documented in nursing records and having met discharge criteria and was discharged from the Pain Management Center. COMMENTS: If this procedure is helpful, it can be completed up to 3 times per 12 months. I personally performed the entire procedure. Hernandez Lobo MD Pain Management
[2019-05-25 12:32] VITALS: BP 118/70; PULSE 70; RESP 20; O2SAT 97
[2019-05-25] MEDS: Omnipaque 240 MG/ML 50 ML BTL IJ (12:33)
[2019-05-25] MEDS: methylPREDNISolone ACETATE 80 MG/ML VIAL IM (12:34)
== END 2019-05-25 11:55 ==
PROVIDERS: PCP Family Medicine; Visit Provider Internal Medicine
DX: M43.17 Spondylolisthesis, lumbosacral region (principal)
CPT/HCPCS: 62323; 72100; J1040; Q9967

== ENCOUNTER 2019-08-16 01:16 | Outpatient (CLI) | payer MEDICARE, SELFPAY ==
--- NOTE | 2019-08-16 10:20 | DI.US_ITS ---
APPROVED REPORT EXAM: Comprehensive 2D, Doppler, and color-flow Echocardiogram Patient Location: Out-Patient Systems Security Consultant: Cassandra Vences RDCS (AE) Rhythm: NSR Indications: cardiac systolic murmur R01.1 Conclusion Left Ventricle : The left ventricle is normal. Left ventricular systolic function is normal. Borderli ne left ventricular hypertrophy. There is normal LV segmental wall motion. The left ventricular diast olic function is normal. LVEF is estimated to be 60-65%. Right Ventricle : The right ventricle is normal size. The right ventricular systolic function appears normal. Atria : The left atrium size is normal. The right atrium size is normal. Aortic Valve : The Aortic valve is sclerotic. Aortic valve has calcified nodular thickening. No aorti c regurgitation is present. Mild aortic stenosis. Mitral Valve : Mild mitral annular calcification. Mitral valve leaflets are calcified. Trace mitral r egurgitation. No evidence of mitral valve stenosis. Great Vessels : The ascending aorta is mildly dilated. IVC is normal in size and collapses >50% with inspiration. There is no prior echocardiogram available for comparison. Wall motion Left Ventricle The left ventricle is normal. Left ventricular systolic function is normal. Borderline left ventricul ar hypertrophy. There is normal LV segmental wall motion. The left ventricular diastolic function is normal. LVEF is estimated to be 60-65%. Right Ventricle The right ventricle is normal size. The right ventricular systolic function appears normal. Atria The left atrium size is normal. The right atrium size is normal. Aortic Valve The Aortic valve is sclerotic. Aortic valve has calcified nodular thickening. Mild aortic stenosis. N o aortic regurgitation is present. Mitral Valve Mild mitral annular calcification. Mitral valve leaflets are calcified. No evidence of mitral valve s tenosis. Trace mitral regurgitation. Tricuspid Valve Tricuspid valve is not well visualized. Mild tricuspid regurgitation. Great Vessels The aortic root is normal in size. The ascending aorta is mildly dilated. IVC is normal in size and c ollapses >50% with inspiration. Pericardium Prominent anterior epicardial fat pad is present. 2D Dimensions IVSd 1.10 cm F: 0.6-1.0 LV EDV A2C 58.8 mL PWd 1.10 cm F: 0.6 - 1.0 LV EDV A4C 73.2 mL LVDd 4.55 cm F: 3.8 - 5.2 LA Volume Index Biplane 20.9 mL/m2 LVDs 3.05 cm F: 2.2 - 3.5 LA Area A4C 14.38 cm2 Aortic Root 2.75 cm F: 2.7 - 3.3 LA Area A2C 12.69 cm2 RA Area A4C 9.37 cm2 EF AP4 63.0 % LVOT 1.95 cm (M/F) 1.5-2.5 EF AP2 70.2 % Ascending Aorta 3.63 cm F: 2.3 - 3.1 EF BP 67.2 % LVEF (Teich) 61.6 % IVC 1.13 cm LVEF (Calle's) 67.18 % F: 54 - 74 TAPSE 2.28 cm (M/F) <1.7 LV Volume 54.74 mL F: 46 - 106 LV Volume Index 35.31 mL/m2 F: 29 - 61 FS 33.00 % LV Diastology MV E' medial 0.046 (>0.07 m/s) E/A Ratio 0.6 LV E/e MED 13.30 (<14) PV S/D Ratio 1.69 MV E' lateral 0.052 (>0.1 m/s) A-A Duration 154.70 msec LV E/e LAT 11.70 (<14) TR Peak Velocity 2.63 m/s Pulm Vein s 0.70 m/s Pulm Vein d 0.41 m/s Pulm Vein a 0.52 m/s LA vol/ BSA A2C s A-L 18.4 mL/m2 LA vol/ BSA A4C s A-L 23.6 mL/m2 Aortic Valve LVOT Area 3.07 cm2 AoV Area Vmax 1.38 cm2 LVOT Vmax 1.02 m/s AoV Area/ BSA (Vmax) 0.89 cm2/m2 LVOT Mean Durga. 0.74 m/s DAISY Mean Durga. 1.40 cm2 LVOT Peak Gr. 4.1 mmHg DAISY Mean Durga. Index 0.90 cm2/m2 LVOT Mean Gr. 2.4 mmHg LVOT VTI 0.194 m AoV Vmax 2.27 (0.5-1.3 m/s) AoV Mean Durga. 1.63 m/s AoV Peak Grad 20.5 mmHg LVOT SV 59.56 mL AoV Mean Grad 11.7 (<5 mmHg) AoV VTI 0.431 (0.18-0.25 m) AoV Area VTI 1.38 (2.5-4.5 cm2) AoV Area/ BSA (VTI) 0.89 cm/m2 Mitral Valve MV E Max Durga. 0.61 (0.4-1.3 m/s) MVA VTI 3.70 (4.0-6.0 cm2) MV A Velocity 1.10 (0.4-1.3 m/s) RVOT Peak Gr. 2.30 mmHg E/A Ratio 0.56 RVOT Mean Gr. 1.15 mmHg MV Decel. Time 323 (160-240 msec) MV PHT 94 msec MVA PHT 2.35 cm2 PV Peak Velocity 1.10 (0.5-1.5 m/s) RVOT Peak Durga. 0.76 m/s RVOT VTI 0.133 m Tricuspid Valve TR P. Gradient 27.6 mmHg TV Regurg Vmax 2.63 m/s RAP Estimate 3.00 mmHg RVSP 30.6 mmHg
== END 2019-08-16 01:36 ==
PROVIDERS: PCP Family Medicine; Visit Provider Family Medicine
DX: R01.1 Cardiac murmur, unspecified (principal); I35.0 Nonrheumatic aortic (valve) stenosis; I34.0 Nonrheumatic mitral (valve) insufficiency; I10 Essential (primary) hypertension
CPT/HCPCS: 93306

== ENCOUNTER → 2019-08-25 10:08 | Outpatient (BNVA) | payer MEDICARE, SELFPAY | PROVIDERS: PCP Family Medicine; Referring Provider Family Medicine; Visit Provider Student in an Organized Health Care Education/Training Program | DX: G56.02 Carpal tunnel syndrome, left upper limb (principal) | CPT/HCPCS: 99213 ==

== ENCOUNTER 2019-09-07 21:45 | Outpatient (REF) | payer MEDICARE, SELFPAY ==
[2019-09-07 19:53] LABS: Bacteria Negative HPF (Negative); C & S Indicated? C&S Done As Ordered; Casts Negative LPF (Negative); Crystals Negative HPF (Negative); Epithelial Cells Few HPF (Negative); Mucus Negative (Negative); Other Cells Few Renal (Negative); RBC Negative HPF (0-2); WBC 20-50 HPF (0-5)
== END 2019-09-07 22:05 ==
LOC: NCHCN 21:45
PROVIDERS: PCP Family Medicine; Visit Provider Nurse Practitioner Family
DX: M54.9 Dorsalgia, unspecified (principal); R82.998 Other abnormal findings in urine
CPT/HCPCS: 81015; 87086

== ENCOUNTER 2019-09-08 10:36 | Outpatient (CLI) | payer MEDICARE, SELFPAY ==
--- NOTE | 2019-09-08 11:20 | DI.RAD_ITS ---
EXAM: XR CHEST 2V PA LATERAL INDICATION: BACK PAIN M54.9. COMPARISON: No exams were available for comparison TECHNIQUE: 2D digital imaging was performed. FINDINGS: Heart size is normal. The lungs appear clear. No infiltrate, effusion or pneumothorax is seen. The re are degenerative changes in the thoracic spine. No compression fractures are seen. IMPRESSION: No acute abnormality. DATA REPOSITORY: RADIATION DOSE DELIVERED:
== END 2019-09-08 10:56 ==
PROVIDERS: PCP Family Medicine; Visit Provider Nurse Practitioner Family
DX: M54.9 Dorsalgia, unspecified (principal)
CPT/HCPCS: 71046

== ENCOUNTER 2019-09-19 09:23 | Day surgery (SDC) | payer MEDICARE, SELFPAY ==
--- NOTE | 2019-09-18 17:35 | PDOC.ANES ---
Date of service: 09/18/19 Time of Service: 17:35 Anesthesia Note Report Anesthesia Note: Called to speak with Mrs. Joyce in regards to possibly rescheduling her elective surgery. I explained that she is in a higher risk group if she was to contract SABRINA-CoV-2/COVID 19. I explained that it has been recommended for higher risk groups to remain at home to minimize exposure to the virus. She understands the risk and would like to proceed as scheduled.
[2019-09-19 09:50] VITALS: BP 130/62; PULSE 71; RESP 17; TEMP 36.6; O2SAT 96
[2019-09-19] MEDS: Lactated Ringers 1,000 ML 80 ML IV (10:19)
[2019-09-19] MEDS: ceFAZolin 2 GM/50 ML BAG IVPB (10:44)
[2019-09-19] MEDS: Sodium Bicarbonate 50 MEQ/50 ML VIAL (11:04)
--- NOTE | 2019-09-19 11:15 | W.PM.DSUDISC ---
Discharge Plan Disposition Patient Disposition: HOME Condition: Good Discharge Details Reason For Visit: Recurrent Left Carpal Tunnel Syndrome Attending Provider: Ramses Gabriel Primary Care Provider: Zaynab Thacker V Home Meds and New Rx's Prescriptions: Continued potassium 99 mg tablet 99 mg PO DAILY RF: 0 sennosides [Senokot] 8.6 MG tablet 2 tab-cap PO HS RF: 0 cod liver oil 1 EACH capsule 1 ea PO HS RF: 0 lisinopril 2.5 MG tablet 2.5 mg PO DAILY RF: 0 vitamin E (dl, acetate) 100 UNIT capsule 100 unit PO HS RF: 0 omega-3 fatty acids-fish oil 1 EACH capsule 2 ea PO DAILY RF: 0 lmlpxqxcqv-fmfamwbzcczvs-hvjs [Fioricet] 50-300-40 mg capsule 1 cap PO ONCE PRNRF: 0 simvastatin 40 mg tablet 40 mg PO DAILY RF: 0 gabapentin 300 mg capsule 300 mg PO TID 30 Days Qty: 90 RF: 11 trazodone 50 MG tablet 50 mg PO HS RF: 0 cyanocobalamin (vitamin B-12) 1,000 MCG/1 ML solution 1,000 mcg IJ DIRECTED RF: 0 cetirizine 10 MG tablet,chewable 10 mg PO DAILY RF: 0 cholecalciferol (vitamin D3) 1,000 UNITS tablet 2,000 unit PO DAILY RF: 0 omeprazole 20 mg capsule,delayed release(DR/EC) 20 mg PO DAILY RF: 0 Tonia-C with Bioflavonoids 500-200 mg tablet 1 tab PO DAILY RF: 0 pyridoxine (vitamin B6) [Vitamin B-6] 100 MG tablet 100 mg PO HS RF: 0 triamcinolone acetonide 0.1 % Cream 1 applic TOPICAL BID RF: 0 melatonin 10 mg Tablet 1 tab PO HS RF: 0 acetaminophen 500 mg tablet 500 mg PO Q6H PRN (Reason: pain) Qty: 60 RF: 2 Discharge Instructions Additional Instructions: Activity: You may use your fingers as tolerated. You should keep the hand and wrist elevated for the first week or so. You should use the brace for all activity of the wrist but may remove it when not doing anything vigorous with your left hand. You may apply ice. Dressings: You should keep the dressing on for 3 days. After that, you may remove the dressing and replace with light gauze or a large bandaid. You may leave the initial dressing on for 7 days if you desire. The wound may get wet after 3 days. Medications: - You should take Ibuprofen and Acetaminophen for baseline pain control. Follow-up: 7-10 days Referrals: Ramses Gabriel MD [ [facility] STAFF PHYSICIAN] - Equipment/Supplies: Brace Activity:: Elevate Remove Dressings/Wound Care:: 72 hours Shower/Bathe:: 72 hours Diet:: As Tolerated Discharge Orders Discharge Orders: Discharge Order (Routine); Ordered 09/19/19 Ordered By: Ramses Gabriel DS: Diagnosis Discharge Diagnosis (1) Carpal tunnel syndrome of left wrist: Status: Acute
[2019-09-19 11:50] VITALS: BP 125/60; PULSE 71; RESP 16; TEMP 36.8; O2SAT 96
--- NOTE | 2019-09-19 16:06 | W.PM.OP ---
Date of service: 09/19/19 Time of Service: 11:07 Operative Note Operative Note DATE OF PROCEDURE: 09/19/19 PRE-OP DIAGNOSIS: Recurrent Left Carpal Tunnel Syndrome POST-OP DIAGNOSIS: same PROCEDURE: Open Carpal Tunnel Release - Left SURGEON: Ramses Gabriel ANESTHESIA: MAC ESTIMATED BLOOD LOSS: 0 PATHOLOGY: none sent TOURNIQUET TIME: 14 COMPLICATIONS: None Patient was transported to: same day Patient's condition: stable Indications: Kaley is a 73-year-old female who I have seen for carpal tunnel syndrome. She had a previous endoscopic release but continued to have middle finger numbness and discomfort. This was given time to improve but it did not. Therefore, I recommended proceeding with a revision carpal tunnel surgery in an open fashion. I reviewed the risk of the procedure to include bleeding, infection, pain, stiffness, continued numbness, damage to nerves and vessels, damage to muscles and tendons, need for repeat procedures. Despite these risk, patient desired to proceed. Findings: There was a tightened transverse carpal ligament. It was released fully. The median nerve was inspected and showed some adhesions but no injury. Procedure Description: Kaley was greeted in the preoperative holding area. The correct site was identified and marked. The consent was reviewed the patient and signed. The history physical was updated. Patient was taken back to the operating room and placed in the supine position with the left hand placed on a hand table. A nonsterile tourniquet was placed high up onto the arm. The hand and forearm was then prepped with ChloraPrep and draped in standard fashion. Prophylactic antibiotics in the form of cefazolin were given. A timeout was performed for safe surgery. The surgical site was then injected and anesthetized with 1% lidocaine with epinephrine buffered with sodium bicarbonate. The radial border of the fourth ray was marked on the skin as well as any other pertinent surface anatomy. The limb was exsanguinated and cuff inflated to 250 mmHg. Using 15 blade the skin was incised sharply. Blunt dissection was carried down to the level of the palmar fascia. This was sharply divided making sure to protect any crossing neurovascular branches. Once this was divided the fibers of the transverse carpal ligament were identified. Using a Blackwater, I was able to place this underneath a portion of the transverse carpal ligament. A knife was then used to cut directly onto the Blackwater. This release the transverse carpal ligament. Using the Blackwater to protect underlying tendons and the median nerve, I released the remainder of the transverse carpal ligament. It was notably thickened and tight. A scissor was used to complete the far aspects after making sure there is no interposed tissue. There is notable separation of the leaflets. Elevating, lifting up, the radial flap of the transverse carpal ligament exposed the median nerve. Any adhesions between it and the transverse carpal ligament were released. It was fully inspected and showed no signs of injury or damage. The wound was then fully irrigated. The skin and deeper tissues were closed with a interrupted 4-0 nylon suture. The tourniquet was deflated and there was return of blood flow to all digits. No excessive bleeding from the wound. 4 x 4 gauze was applied followed by Kerlix wrap and an Jorden wrap. The hand was placed into a removable brace. At the end the case all counts are correct. The patient tolerated the procedure well and was transferred back to the day surgery area in a stable condition.
== END 2019-09-19 12:20 | disposition home or self-care (01) ==
PROVIDERS: PCP Family Medicine; Visit Provider Student in an Organized Health Care Education/Training Program
PROC: (CPT 64721; principal; 2019-09-19 10:45)
DX: G56.02 Carpal tunnel syndrome, left upper limb (principal)
CPT/HCPCS: 64721; J0690; J2001; J2704; L3650; L3908

== ENCOUNTER → 2019-09-29 09:39 | Outpatient (BNVA) | payer MEDICARE, SELFPAY | PROVIDERS: PCP Family Medicine; Referring Provider Family Medicine; Visit Provider Student in an Organized Health Care Education/Training Program | DX: Z47.89 Encounter for other orthopedic aftercare (principal); G56.02 Carpal tunnel syndrome, left upper limb ==

== ENCOUNTER → 2019-11-03 10:06 | Outpatient (BNVA) | payer MEDICARE, SELFPAY | PROVIDERS: PCP Family Medicine; Referring Provider Family Medicine; Visit Provider Student in an Organized Health Care Education/Training Program | DX: Z47.89 Encounter for other orthopedic aftercare (principal); G56.02 Carpal tunnel syndrome, left upper limb ==

== ENCOUNTER 2019-11-28 18:05 | Outpatient (REF) | payer MEDICARE, SELFPAY ==
[2019-11-28 20:13] LABS: ALT 35 U/L (14-59); AST 26 U/L (15-37); Albumin 4.1 g/dL (3.4-5.0); Alkaline Phosphatase 50 U/L (46-116); Anion Gap 8.8 mmol/L (3-11); BUN 14 mg/dL (7-18); Bilirubin, Total 0.5 mg/dL (0.2-1.0); CO2 27.2 mmol/L (21.0-32.0); CREATININE 0.75 mg/dL (0.55-1.02); Calcium 9.6 mg/dL (8.5-10.1); Chloride 102 mmol/L (98-107); Glucose 148 mg/dL (74-106); Potassium 3.8 mmol/L (3.5-5.1); Sodium 138 mmol/L (136-145); Total Protein 7.9 g/dL (6.4-8.2)
[2019-11-28 20:55] LABS: Vitamin B12 816 pg/mL (193-986)
[2019-11-30 15:24] LABS: Albumin 59.4 % (55.8-66.1); Total Protein 7.7 g/dL (6.3-8.2)
== END 2019-11-28 18:25 ==
LOC: NCHCN 18:05
PROVIDERS: PCP Family Medicine; Visit Provider Family Medicine
DX: R53.83 Other fatigue (principal); M54.9 Dorsalgia, unspecified
CPT/HCPCS: 80053; 85652; 82607; 83036; 84165; 84443; 85025

== ENCOUNTER 2019-11-30 16:31 | Outpatient (REF) | payer MEDICARE, SELFPAY ==
[2019-11-30 18:52] LABS: Abs Immature Grans 0.01 k/cumm (0.0-0.09); Absolute Basophil Count 0.06 k/cumm (0.0-0.2); Absolute Eosinophil Count 0.16 k/cumm (0.0-0.7); Absolute Lymphocyte Count 2.19 k/cumm (1.2-3.4); Absolute Monocyte Count 0.63 k/cumm (0.11-0.7); Absolute Neutrophil Count 1.96 k/cumm (1.2-6.7); Basophils % 1.2; Eosinophils % 3.2; HCT 38.6 % (36.0-46.0); HGB 12.8 g/dL (12.0-15.5); Immature Grans % 0.2 %; Lymphocytes % 43.7; Mean Corp. HGB Concentration 33.2 g/dL (32.0-36.0); Mean Corpuscular Hemoglobin 31.2 pg (27.0-33.0); Mean Corpuscular Volume 94.1 fL (80-95); Mean Platelet Volume 11.3 fL (8.0-11.0); Monocytes % 12.6; Neutrophils % 39.1; Platelet Count 255 x1000/uL (130-400); RBC Distribution Width 13.8 % (11.7-14.6); White Blood Cell Count 5.01 k/cumm (4.4-10.8)
[2019-11-30 19:28] LABS: Hemoglobin A1C 6.9 % (3.8-5.6)
[2019-11-30 19:52] LABS: ESR 14 mm/hr (0-30)
== END 2019-11-30 16:51 ==
LOC: NCHCN 16:31
PROVIDERS: PCP Family Medicine; Visit Provider Family Medicine
DX: E11.9 Type 2 diabetes mellitus without complications (principal); R53.83 Other fatigue; M54.9 Dorsalgia, unspecified
CPT/HCPCS: 85652; 83036; 85025

== ENCOUNTER 2020-04-11 01:12 | Outpatient (CLI) | payer MEDICARE, MEDICAID, SELFPAY ==
--- NOTE | 2020-04-11 | DI.RAD_ITS ---
EXAM: XR SHOULDER RT COMPLETE 2+V CLINICAL HISTORY: RT AC JOINT PAIN, M25.511 TECHNIQUE: COMPARISON: No exams were available for comparison FINDINGS: Five views were obtained. There is moderate to severe narrowing of the glenohumeral cartilaginous cristy int space. There are very prominent hypertrophic marginal osteophytes of the humeral head and the gl enoid. There are very prominent hypertrophic degenerative changes of the acromioclavicular joint as well with particularly prominent superior marginal osteophytes of the acromion clavicle. There is mild subchondral sclerosis of the humeral head. This is presumably on a degenerative basis. 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
== END 2020-04-11 01:32 ==
PROVIDERS: PCP Family Medicine; Visit Provider Family Medicine
DX: M19.011 Primary osteoarthritis, right shoulder (principal)
CPT/HCPCS: 73030

== ENCOUNTER → 2020-05-09 10:51 | Outpatient (BNVA) | payer MEDICARE, MEDICAID, SELFPAY | PROVIDERS: PCP Family Medicine; Referring Provider Family Medicine; Visit Provider Student in an Organized Health Care Education/Training Program | DX: M19.011 Primary osteoarthritis, right shoulder (principal); I10 Essential (primary) hypertension | CPT/HCPCS: 99214 ==

== ENCOUNTER 2020-05-23 01:14 | Outpatient (CLI) | payer MEDICARE, SELFPAY ==
--- NOTE | 2020-05-23 14:09 | W.PROCNOTE ---
Date of service: 05/23/20 Time of Service: 14:09 Procedure Note Date of procedure: 05/23/20 Procedure: Right Shoulder Injection Surgeon/Proceduralist/Physician: Ramses Gabriel Procedure Diagnosis: Right Shoulder Arthritis Procedure Indications: Kaley has had persistent pain of the RIGHT shoulder. Noninvasive measures have been tried. To serve as both diagnostic and therapeutic, an injection under fluoroscopy was recommended. I had discussed the risks of the procedure and the patient elected to proceed. Procedure Description: Kaley was greeted in the flouroscopy room. The correct side was identified and the consent was reviewed with the patient and signed. The patient was then placed in the supine position on the fluoroscopy table. The RIGHT shoulder was then prepped with Chloraprep. The anterior injection starting point was identiifed by bony landmarks and fluoroscopy. The skin and soft tissue in the tract of the injection was anesthetized with 1% Lidocaine. A spinal needle was then inserted deep into the shoulder joint at the level of the recess between the glenoid and superior humeral head. A small amount of Omnipaque solution was injected to confirm intraarticular placement. Once confirmed, the shoulder was injected with 4cc of 0.5% Bupivicaine and 80mg of Depo-Medrol. A bandaid was placed on the injection site. The patient tolerated the procedure well and noted improvement in pre-injection pain.
--- NOTE | 2020-05-23 15:34 | DI.RAD_ITS ---
EXAM: RF JOINT INJECTION FLUORO GUID CLINICAL HISTORY: R SHOULDER INJ UNDER FLUORO,ARTHRITIS RT AC JOINT AND GLENOHUMERAL JT, TECHNIQUE: 2D and realtime digital imaging was performed. CONTRAST MATERIAL: Water soluble contrast was administered. COMPARISON: No exams were available for comparison FINDINGS: Fluoroscopy was provided for Dr. Gabriel during the performance of a right shoulder injection. Ple ase refer to the procedure report for complete details. Fluoro time: 10 seconds
[2020-05-23] MEDS: Omnipaque 300 MG/ML 10 ML BTL 1.5 ML IJ (15:35)
[2020-05-23] MEDS: Bupivacaine 0.5% Pres-Free 10 ML VIAL 5 ML IJ (15:36)
[2020-05-23] MEDS: methylPREDNISolone ACETATE 80 MG/ML VIAL IM (15:36)
== END 2020-05-23 01:34 ==
PROVIDERS: PCP Family Medicine; Visit Provider Student in an Organized Health Care Education/Training Program
DX: M19.011 Primary osteoarthritis, right shoulder (principal); M25.511 Pain in right shoulder
CPT/HCPCS: 20610; 77002; J1040

== ENCOUNTER 2020-06-10 17:04 | Emergency (ER) | payer MEDICARE, SELFPAY ==
--- NOTE | 2020-06-10 17:00 | RT.EKG_ITS ---
APPROVED REPORT Exam: Resting ECG Patient Location: E HR:67 bpm ECG Measurements Heart Rate 67 AXIS OK 173 P 50 QRSd 86 QRS 13 QT 415 T 30 QTc 438 Conclusion Sinus rhythm. anterior q waves, no st elev
[2020-06-10 17:14] VITALS: BP 169/91; PULSE 65; RESP 16; TEMP 37.1; O2SAT 97
--- NOTE | 2020-06-10 17:15 | DI.RAD_ITS ---
EXAM: XR RIBS LT W PA LAT CHEST CLINICAL HISTORY: L anterior pain after fall TECHNIQUE: COMPARISON: CR XR CHEST 2V PA LATERAL from 09/08/2019 FINDINGS: PA and lateral chest and four views of the ribs were obtained. Heart is not enlarged. Lungs are surekha ar. No pleural effusion or pneumothorax. No rib fracture seen. IMPRESSION: Negative examination of the chest and ribs. RADIATION DOSE DELIVERED: Total DLP Total DLP
--- NOTE | 2020-06-10 17:28 | ED.GENADUL_ITS ---
Discharge Plan Disposition Patient Disposition: HOME Condition: Improving Discharge Details Clinical Impression: Contusion of left chest wall Primary Care Provider: Zaynab Thacker V ED Provider: Evan Portillo Home Meds and New Rx's Prescriptions: Continued potassium 99 mg tablet 99 mg PO DAILY RF: 0 sennosides [Senokot] 8.6 MG tablet 2 tab-cap PO HS RF: 0 cod liver oil 1 EACH capsule 1 ea PO HS RF: 0 lisinopril 2.5 MG tablet 2.5 mg PO DAILY RF: 0 vitamin E (dl, acetate) 100 UNIT capsule 100 unit PO HS RF: 0 omega-3 fatty acids-fish oil 1 EACH capsule 2 ea PO DAILY RF: 0 lsljgmpqee-fbnxyuverniji-srih [Fioricet] 50-300-40 mg capsule 1 cap PO ONCE PRNRF: 0 simvastatin 40 mg tablet 40 mg PO DAILY RF: 0 gabapentin 300 mg capsule 300 mg PO TID 30 Days Qty: 90 RF: 11 trazodone 50 MG tablet 50 mg PO HS RF: 0 cyanocobalamin (vitamin B-12) 1,000 MCG/1 ML solution 1,000 mcg IJ DIRECTED RF: 0 cetirizine 10 MG tablet,chewable 10 mg PO DAILY RF: 0 cholecalciferol (vitamin D3) 1,000 UNITS tablet 2,000 unit PO DAILY RF: 0 omeprazole 20 mg capsule,delayed release(DR/EC) 20 mg PO DAILY RF: 0 Tonia-C with Bioflavonoids 500-200 mg tablet 1 tab PO DAILY RF: 0 pyridoxine (vitamin B6) [Vitamin B-6] 100 MG tablet 100 mg PO HS RF: 0 triamcinolone acetonide 0.1 % Cream 1 applic TOPICAL BID RF: 0 melatonin 10 mg Tablet 1 tab PO HS RF: 0 acetaminophen 500 mg tablet 500 mg PO Q6H PRN (Reason: pain) Qty: 60 RF: 2 Discharge Instructions Instructions: Contusion in Adults (ED) Additional Instructions: Apply ice to area 20 minutes at a time to reduce discomfort. May continue your regular medications including Tylenol. Your potassium was slightly low at 3.2 and you may increase potassium containing foods such as bananas, strawberries, tree nuts such as cashews or almonds. Return to the ER for any acute concerns. Medical Decision Making 74-year-old female presents from home complaining of fall while cutting down a [place] tree 5 days ago striking her left chest on the stump. Mild persistent left-sided anterior chest pain since that time. Last night after eating sausage she developed adequate taste in her epigastric region and nausea. Improved after drinking a Sprite and belching. She has not had shortness of breath. Bursitis with contusion, must exclude rib fracture. She is not tender in her abdomen I do not feel this is a splenic injury. Referred for laboratory, EKG, x-ray. X-ray is unremarkable without fracture or pneumothorax. Labs are reassuring with white blood cell count 6, hematocrit 34, platelets 205. Sodium 139, potassium 3.2, chloride 103, bicarb 28, BUN 14, creatinine 0.7. Troponin negative Discussed with patient findings are reassuring. Discussed with her home management. She will return for worsening pain develop or shortness of breath or any other acute concerns. She is stable for discharge at this time. HPI General Mode of arrival: ambulatory . Date/Time Provider Initiated Documentation: 06/10/20 17:09 . Limitations to Documentation: no limitations . Information obtained by: patient . History of Present Illness 74 year old F presents to the emergency department with the chief complaint of Left chest pain after fall 5 days ago, Quality is described as dull and constant, and is localized to the chest and left. Patient reports no radiation. Patient started experiencing this day(s) and it has been intermittent. Rest improves symptom(s), Movement worsens symptoms . Patient notes denies cough, headaches, shortness of breath and syncope. Patient did receive the following treatments prior to arrival, none Related Data Home Medications Medication Instructions Recorded Confirmed cetirizine 10 mg PO DAILY 03/02/13 06/10/20 cholecalciferol (vitamin D3) 2,000 unit PO DAILY 03/02/13 06/10/20 cyanocobalamin (vitamin B-12) 1,000 mcg IJ DIRECTED 03/02/13 06/10/20 trazodone 50 mg PO HS 03/02/13 06/10/20 cod liver oil 1 ea PO HS NS 11/02/17 06/10/20 lisinopril 2.5 mg PO DAILY tab-cap NS 11/02/17 06/10/20 omega-3 fatty acids-fish oil 2 ea PO DAILY NS 11/02/17 06/10/20 sennosides [Senokot] 2 tab-cap PO HS tab-cap NS 11/02/17 06/10/20 vitamin E (dl, acetate) 100 unit PO HS NS 11/02/17 06/10/20 pyridoxine (vitamin B6) [Vitamin 100 mg PO HS 11/15/17 06/10/20 B-6] triamcinolone acetonide 1 applic TOPICAL BID 08/04/18 06/10/20 melatonin 1 tab PO HS 08/08/18 06/10/20 ascorbate calcium-bioflavonoid 500 1 tab PO DAILY tab 08/24/18 06/10/20 mg-200 mg tablet omeprazole 20 mg capsule,delayed 20 mg PO DAILY cap 08/24/18 06/10/20 release potassium 99 mg tablet 99 mg PO DAILY 12/01/18 06/10/20 hmwfmkqvql-bbtuuclibhxka-cfurcqtz 1 cap PO ONCE PRN cap 03/17/19 06/10/20 50 mg-300 mg-40 mg capsule simvastatin 40 mg tablet 40 mg PO DAILY 03/17/19 06/10/20 acetaminophen 500 mg PO Q6H PRN #60 tab 05/03/19 06/10/20 gabapentin 300 mg capsule 300 mg PO TID 30 Days #90 cap 05/30/19 06/10/20 Previous Rx's Medication Instructions Recorded acetaminophen 500 mg PO Q6H PRN #60 tab 05/03/19 gabapentin 300 mg capsule 300 mg PO TID 30 Days #90 cap 05/30/19 Allergies Allergy/AdvReac Type Severity Reaction Status Date / Time adhesive Allergy Intermediate itchy rash Verified 06/10/20 17:20 niacin Allergy Intermediate Skin Rash Verified 06/10/20 17:20 Sulfa (Sulfonamide Allergy Intermediate Skin Rash Verified 06/10/20 17:20 Antibiotics) codeine AdvReac Intermediate VOMITING Verified 06/10/20 17:20 morphine AdvReac Mild vomiting Verified 06/10/20 17:20 General Stated Complaint: Chest/Rib BETO: 3 Review of Systems Narrative: 6 systems reviewed and otherwise negative [facility] Medical History (Updated 06/10/20 @ 18:57 by Evan Portillo MD) Abdominal pain Adenomatous colon polyp Allergic rhinitis Anxiety Arthritis Cataract Cataract, bilateral Chronic gastritis Cortical cataract of left eye Cortical cataract of right eye CTS (carpal tunnel syndrome) Diabetes mellitus Diabetes mellitus type 2, controlled controlled with diet per pt. Eczema Esophagitis Fracture of right lower extremity Fracture of right lower leg Gait abnormality GERD (gastroesophageal reflux disease) Grief reaction H pylori ulcer Headache Heart murmur Heart murmur, systolic Helicobacter pylori (H. pylori) infection Hip pain HTN (hypertension) Hyperlipidemia Hyperparathyroidism pt. is unsure if she has this condition Low back pain Migraine Nuclear sclerotic cataract of left eye Nuclear sclerotic cataract of right eye Onychomycosis Onychomycosis of toenail Palpitations Peripheral neuropathy Right hip pain Urinary incontinence Vertigo Vitamin B12 deficiency Surgical History Colonoscopy - IV Sedation (01/06/17) H/O esophagogastroduodenoscopy (~02/01/19) 2018-Gastritis History of carpal tunnel release Bilateral History of nasal surgery Right Leg fracture pt reports metal plate in right leg Status post cataract extraction and insertion of intraocular lens of left eye (08/22/18) Status post cataract extraction and insertion of intraocular lens of right eye (08/08/18) Tubal Ligation, Family History Father Colon cancer Maternal Uncle Colon cancer Other Diabetes Social History Smoking/Tobacco Use Status: Never Smoking risk assessment performed?: Yes Alcohol Intake: never Drug use: Never Substance use type: does not use Household members: none Housing: house Number of Children: 2 Pets and animals: Yes Pets and animals: cat(s) and dog(s) Current gender identity: female What is your relationship status?: Panel score (0-1 are the most socially isolated patients): 0 What type of physical activity do you participate in: additional Details: yard work and gardening Do you feel safe at home: Yes Do you feel safe in your relationship?: Yes Additional Social history: Exam Narrative Exam Narrative: GEN: awake, alert, oriented 3. Pleasant, well groomed, interactive. HEAD: Normocephalic, atraumatic ENT: Mucous membranes moist, oropharynx unremarkable, External ear exam unremarkable EYES: PERRL, EOMI NECK: Full ROM, no RED, no menigismus CHEST/RESP: Left anterior rib tenderness approximately T4 region, no ecchymosis, no crepitus, clear to auscultation bilateral, no wheeze/rhonchi/rales CARDIOVASCULAR: RRR, no murmur, rub jian. 2+ Rad pulse bilateral ABDOMEN: Soft, nontender, no mass. +Bowel sounds EXT: Full ROM, no edema, no rash Neuro: Grossly normal neurologic exam, conversant, interactive. Psych: Speech fluent, thoughts congruent, affect normal Course Vital Signs Vital signs: Vital Signs Temperature 37.1 C 06/10/20 17:14 Pulse 65 06/10/20 17:14 Respiratory Rate 16 06/10/20 17:14 Blood Pressure 169/91 H 06/10/20 17:14 Pulse Oximetry 97 06/10/20 17:14 Temperature 37.1 C 06/10/20 17:14 Temperature Source Skin 06/10/20 17:14 Pulse 65 06/10/20 17:14 Respiratory Rate 16 06/10/20 17:14 Respiratory Effort Non-Labored 06/10/20 17:14 Blood Pressure 169/91 H 06/10/20 17:14 Blood Pressure Position Sitting 06/10/20 17:14 Pulse Oximetry 97 06/10/20 17:14 Oxygen Delivery Method Room Air 06/10/20 17:14 Oxygen Flow Rate 0 06/10/20 17:14 Pain Level 0 06/10/20 17:14
[2020-06-10 17:44] LABS: Abs Immature Grans 0.02 10^3/uL (0.0-0.06); Absolute Basophil Count 0.05 10^3/uL (0.0-0.2); Absolute Eosinophil Count 0.18 10^3/uL (0.0-0.7); Absolute Lymphocyte Count 2.44 10^3/uL (1.2-3.4); Absolute Monocyte Count 0.65 10^3/uL (0.1-0.8); Basophils % 0.8; Eosinophils % 2.9; HCT 34.7 % (36.0-46.0); HGB 11.8 g/dL (11.2-15.7); Immature Grans % 0.3; Lymphocytes % 39.1; MCH 31.1 pg (27.0-33.0); MCV 91.3 fL (80-95); Monocytes % 10.4; Neutrophils % 46.5; Nucleated RBC 0 %; Platelet Count 205 10^3/uL (130-400); RDW 13.1 % (11.7-14.6); WBC 6.24 10^3/uL (4.4-10.8)
[2020-06-10 17:59] LABS: ALT 30 U/L (14-59); AST 21 U/L (15-37); Albumin 3.8 g/dL (3.4-5.0); Alkaline Phosphatase 48 U/L (46-116); BUN 14 mg/dL (7-18); Bilirubin, Total 0.4 mg/dL (0.2-1.0); CREATININE 0.76 mg/dL (0.55-1.02); Calcium 8.9 mg/dL (8.5-10.1); Chloride 103 mmol/L (98-107); Glucose 121 mg/dL (74-106); Potassium 3.2 mmol/L (3.5-5.1); Sodium 139 mmol/L (136-145); Total Protein 7.7 g/dL (6.4-8.2); Troponin I < 0.05 ng/mL (<0.06)
--- NOTE | 2020-06-10 18:05 | DI.VRAD_ITS ---
PROCEDURE INFORMATION: Exam: XR Left Ribs Exam date and time: 06/10/2020 5:46 PM Age: 74 years old Clinical indication: Chest pain; left chest wall pain TECHNIQUE: Imaging protocol: XR Left ribs. Views: 2 views. COMPARISON: CR XR CHEST 2V PA LATERAL 09/08/2019 11:11 AM FINDINGS: Bones/joints: Spinal, shoulder, and AC joint degenerative changes. No acute fracture. Pleural space: No pleural fluid collection. No pneumothorax. Soft tissues: Normal. IMPRESSION: 1. No acute fracture. 2. No pneumothorax or pleural fluid collection. PROCEDURE INFORMATION: Exam: XR Chest, 2 Views Exam date and time: 06/10/2020 5:46 PM Age: 74 years old Clinical indication: Chest pain; left chest wall pain TECHNIQUE: Imaging protocol: XR of the chest Views: 2 views. COMPARISON: CR XR CHEST 2V PA LATERAL 09/08/2019 11:11 AM FINDINGS: Lungs: No alveolar infiltrate. Pleural space: No pleural fluid collection. No pneumothorax. Heart/Mediastinum: Normal heart size. Bones/joints: Spinal, shoulder, and AC joint degenerative changes. No acute fracture. IMPRESSION: 1. No active pulmonary disease. 2. No acute fracture. Dictated and Authenticated by: Nestor Marshall MD. Ordering:REYNA Gordon MD
[2020-06-10 18:51] VITALS: BP 143/76; PULSE 64; RESP 16; TEMP 37.2; O2SAT 96
== END 2020-06-10 19:07 | disposition home or self-care (01) ==
PROVIDERS: Emergency Provider Emergency Medicine; PCP Family Medicine
DX: S20.212A Contusion of left front wall of thorax, initial encounter (principal); W01.198A Fall on same level from slipping, tripping and stumbling with subsequent striking against other object, initial encounter; E87.6 Hypokalemia; E11.9 Type 2 diabetes mellitus without complications; I10 Essential (primary) hypertension
CPT/HCPCS: 36415; 80053; 93005; 99285; 71046; 71100; 84484; 85025; 93010; 99284

== ENCOUNTER 2020-07-10 10:50 | Outpatient (CLI) | payer MEDICARE, SELFPAY ==
--- NOTE | 2020-07-10 06:00 | DI.RAD_ITS ---
EXAM: XR PAIN CLINIC LUMBAR SP 2V CLINICAL HISTORY: Dx: Lumbar Radiculopathy TECHNIQUE: 2D and realtime digital imaging was performed. CONTRAST MATERIAL: Refer to procedure report. COMPARISON: No exams were available for comparison FINDINGS: Fluoroscopy was provided for Dr. Zuniga during the performance of a lumbar epidural steroid injection. Please refer to the procedure report for complete details. Fluoro time: 16.1 seconds IMPRESSION:
[2020-07-10 11:03] VITALS: BP 114/67; PULSE 76; RESP 17; TEMP 37.3; O2SAT 94
[2020-07-10] MEDS: Omnipaque 240 MG/ML 50 ML BTL IJ (11:36)
[2020-07-10] MEDS: methylPREDNISolone ACETATE 80 MG/ML VIAL IJ (11:36)
[2020-07-10 11:37] VITALS: BP 135/77; PULSE 73; RESP 20; O2SAT 96
--- NOTE | 2020-07-10 12:37 | PDOC.PAIN_ITS ---
Pain Clinic Procedure Note Procedure Note Procedure Note: Date of procedure: July 10, 2020 Lumbar Epidural Steroid Injection Procedure Note COMMENTS: She had this procedure completed on 05/25/[address] Yamil inman at [facility] and had about 1 year of relief. Her pre-procedure symptoms have returned. Her diabetes is under fair control. DX: Lumbosacral radiculopathy MENDY ALMARAZ has been referred to the [facility] for lumbar epidural steroid injection. The patient was greeted by the nurse who verified patients name and . Patient was then taken to the fluoroscopy suite. The patient was interviewed and the medial record reviewed. There were no medical, pharmacologic, radiographic, or other structural contraindications to attempting fluoroscopically guided lumbar epidural steroid injection. Risks and expected side effects as well as potential benefits of the procedure were reviewed and voiced concerns expressed. The patient consent form was signed and witnessed. Standard patient time-out procedure was performed. The patient was placed in the prone position on the fluoroscopy table and automated blood pressure cuff and pulse oximeter applied. The skin entry point for entering/approaching the epidural space at L5-S1 and marked. Following thorough chlorhexadine preparation of the skin and draping and 1% lidocaine infiltration of the skin entry point and subcutaneous tissues, a 18 gauge Touhy needle was placed under fluoroscopic guidance and with loss of resistance technique into the epidural space. Needle tip placement and depth were aided and confirmed by fluoroscopy. There was no paresthesia or return of blood or CSF through the needle. 1 cc's of Omnipaque 240 was injected with clear epidural spread confirmed with fluoroscopy. 80mg depomedrol was injected. The needle was flushed with 1 cc of 1% Lidocaine and then removed without difficulty. There was not any unusual discomfort expressed by MENDY ALMARAZ. Patient's vital signs were stable throughout the procedure and were as recorded in nursing records. Follow up plans and appointments were discussed with patient. Post procedure instruction was given as documented in nursing records and having met discharge criteria and was discharged from the [facility]. COMMENTS: If this procedure is helpful, it can be completed up to 3 times per 12 months. Marquis Zuniga DO, MPH Pain Management
== END 2020-07-10 11:10 ==
PROVIDERS: PCP Family Medicine; Visit Provider Preventive Medicine Occupational Medicine
DX: M54.17 Radiculopathy, lumbosacral region (principal)
CPT/HCPCS: 62323; 72100; J1040; Q9967

== ENCOUNTER 2020-08-01 16:51 | Outpatient (REF) | payer MEDICARE, SELFPAY ==
[2020-08-01 19:18] LABS: HCT 36.5 % (36.0-46.0); HGB 12.4 g/dL (11.2-15.7); MCH 31.6 pg (27.0-33.0); MCV 93.1 fL (80-95); MPV 11.4 fL (8.0-11.0); Platelet Count 210 10^3/uL (130-400); RBC 3.92 10^6/uL (3.93-5.22); RDW 13.1 % (11.7-14.6); RDW-SD 44.5 fL; WBC 7.32 10^3/uL (4.4-10.8)
[2020-08-01 19:31] LABS: Anion Gap 12.7 mmol/L (3-11); BUN 24 mg/dL (7-18); CO2 24.3 mmol/L (21.0-32.0); Calcium 9.2 mg/dL (8.5-10.1); Chloride 100 mmol/L (98-107); Estimated GFR 53.91 (mL/min/1.73m2); Glucose 228 mg/dL (74-106); Potassium 3.5 mmol/L (3.5-5.1); Sodium 137 mmol/L (136-145); TSH (W/Ref FT4) 0.92 uIU/mL (0.36-3.74)
[2020-08-01 19:40] LABS: Hemoglobin A1C 7.4 % (<5.7)
[2020-08-05 09:16] LABS: Parathyroid Hormone,Intact 23 pg/mL (19-88)
== END 2020-08-01 17:11 ==
LOC: NCHCN 16:51
PROVIDERS: PCP Family Medicine; Visit Provider Family Medicine
DX: R53.83 Other fatigue (principal); E21.3 Hyperparathyroidism, unspecified; E11.9 Type 2 diabetes mellitus without complications
CPT/HCPCS: 80048; 85027; 83036; 83970; 84443

== ENCOUNTER 2020-10-17 02:26 | Outpatient (CLI) | payer MEDICARE, SELFPAY ==
--- NOTE | 2020-10-17 13:52 | OPPNE_ITS ---
Date of service: 10/17/20 Time of Service: 13:52 Procedure Note Date of procedure: 10/17/20 Procedure: Right Shoulder Injection Surgeon/Proceduralist/Physician: Ramses Gabriel Procedure Diagnosis: Right Shoulder Arthritis Procedure Indications: Kaley has had persistent pain of the RIGHT shoulder. Noninvasive measures have been tried. She has had good success with previous injection. Therefore, an injection under fluoroscopy was recommended. I had discussed the risks of the procedure and the patient elected to proceed. Procedure Description: Kaley was greeted in the flouroscopy room. The correct side was identified and the consent was reviewed with the patient and signed. The patient was then placed in the supine position on the fluoroscopy table. The RIGHT shoulder was then prepped with Chloraprep. The anterior injection starting point was identiifed by bony landmarks and fluoroscopy. The skin and soft tissue in the tract of the injection was anesthetized with 1% Lidocaine. A spinal needle was then inserted deep into the shoulder joint at the level of the recess between the glenoid and superior humeral head. A small amount of Omnipaque solution was injected to confirm intraarticular placement. Once confirmed, the shoulder was injected with 4cc of 0.5% Bupivicaine and 80mg of Depo-Medrol. A bandaid was placed on the injection site. The patient tolerated the procedure well and noted improvement in pre- injection pain.
--- NOTE | 2020-10-17 13:55 | DI.RAD_ITS ---
EXAM: RF JOINT INJECTION FLUORO GUID CLINICAL HISTORY: R SHOULDER INJ UNDER FLUORO,ARTHRITIS RT GLENOHUMERAL JOINT AND AC JOINT, TECHNIQUE: Fluoroscopy provided. Radiologist not present. CONTRAST MATERIAL: None COMPARISON: CR XR SHOULDER RT COMPLETE 2+V from 04/11/2020 FINDINGS: Fluoroscopy was provided for during right shoulder therapeutic injection Submitted image(s) reveal needle placement on the superomedial aspect of the humeral head. Contrast is injected intra-articular. Please refer to the procedure report for complete details. Osteophyte is noted at the level of the inferior articular surface of the humeral head indicating ath erosclerotic involvement. There also moderate degenerative changes in the ipsilateral AC joint. Fluoro time: 6 seconds. Cumulative Dose: 0.187 mGy IMPRESSION: RADIATION DOSE DELIVERED: karel Diego= mGy
[2020-10-17] MEDS: methylPREDNISolone ACETATE 80 MG/ML VIAL IM (13:57)
[2020-10-17] MEDS: Omnipaque 300 MG/ML 10 ML BTL 1.5 ML IJ (13:57)
[2020-10-17] MEDS: Bupivacaine 0.5% Pres-Free 10 ML VIAL 6 ML IJ (13:58)
== END 2020-10-17 02:46 ==
PROVIDERS: PCP Family Medicine; Visit Provider Student in an Organized Health Care Education/Training Program
DX: M19.011 Primary osteoarthritis, right shoulder (principal); M25.511 Pain in right shoulder
CPT/HCPCS: 20610; 77002; J1040

== ENCOUNTER → 2021-01-16 08:43 | Outpatient (BNVA) | payer MEDICARE, SELFPAY | PROVIDERS: PCP Family Medicine; Referring Provider Family Medicine; Visit Provider Student in an Organized Health Care Education/Training Program | DX: M19.011 Primary osteoarthritis, right shoulder (principal); Z98.890 Other specified postprocedural states; E11.9 Type 2 diabetes mellitus without complications | CPT/HCPCS: 99213 ==

== ENCOUNTER 2021-01-27 01:24 | Outpatient (CLI) | payer MEDICARE, SELFPAY ==
--- NOTE | 2021-01-27 07:30 | DI.CT_ITS ---
Exam(s) CT UPPER EXTREMITY RT WO EXAM: CT UPPER EXTREMITY RT WO CLINICAL HISTORY: Preop planning,ARTHRITIS RT GLENOHUMERAL JOINT,M19.011 TECHNIQUE: Imaging Protocol: Axial computed tomography images with coronal and sagittal reformatted images were created and reviewed. CONTRAST MATERIAL: Intravenous: None COMPARISON: Prior x-rays performed 04/11/2020 FINDINGS: There is advanced severe osteoarthritic degenerative changes in the glenohumeral joint with advanced narrowing of the joint and degenerative subarticular cysts. There is also a pepper-type osteophyte on the inferior articular surface of the humeral head. There is also fragmentation of the inferior asp ect of the osseous glenoid which may be related to prior bony Bankart injury. There is no Hill-Sachs deformity. AC joint exhibits moderate degenerative changes. There are no calcifications in the subacromial spac e. Visualized upper humerus: No osseous lesions. No fractures. IMPRESSION: There are advanced osteoarthritic degenerative changes in the right glenohumeral joint, as described above. RADIATION DOSE DELIVERED: 518.97mGy.cm Total DLP DATA REPOSITORY: All CT scans at this facility are submitted to the National Radiology Data Registry (NRDR) Dose Index Registry (DIR) with the [employer] (ACR). RADIATION OPTIMIZATION: All CT scans at this facility use at least one of these dose optimization te chniques: automated exposure control; mA and/or kV adjustment per patient size (includes targeted exa ms where dose is matched to clinical indication); or iterative reconstruction.
== END 2021-01-27 01:44 ==
PROVIDERS: PCP Family Medicine; Visit Provider Student in an Organized Health Care Education/Training Program
DX: M19.011 Primary osteoarthritis, right shoulder (principal)
CPT/HCPCS: 73200

== ENCOUNTER → 2021-02-11 14:13 | Outpatient (BNVA) | payer MEDICARE, SELFPAY | PROVIDERS: PCP Family Medicine; Referring Provider Family Medicine; Visit Provider Student in an Organized Health Care Education/Training Program | DX: M19.011 Primary osteoarthritis, right shoulder (principal); E11.69 Type 2 diabetes mellitus with other specified complication | CPT/HCPCS: 99215 ==

== ENCOUNTER → 2021-04-16 10:52 | Outpatient (BNVA) | payer MEDICARE, SELFPAY | PROVIDERS: PCP Family Medicine; Referring Provider Family Medicine; Visit Provider Student in an Organized Health Care Education/Training Program | DX: M19.011 Primary osteoarthritis, right shoulder (principal); E11.9 Type 2 diabetes mellitus without complications | CPT/HCPCS: 99214 ==

== ENCOUNTER 2021-05-02 11:25 | Outpatient (REF) | payer MEDICARE, SELFPAY ==
[2021-05-02 14:20] LABS: HCT 37.3 % (36.0-46.0); MCH 30.1 pg (27.0-33.0); MCHC 32.2 % (32.0-36.0); MCV 93.5 fL (80-95); MPV 11.7 fL (8.0-11.0); Platelet Count 268 10^3/uL (130-400); RBC 3.99 10^6/uL (3.93-5.22); RDW 14.1 % (11.7-14.6); RDW-SD 49.1 fL; WBC 4.72 10^3/uL (4.4-10.8)
[2021-05-02 15:23] LABS: ALT 24 U/L (14-59); AST 18 U/L (15-37); Albumin 3.7 g/dL (3.4-5.0); Alkaline Phosphatase 61 U/L (46-116); Anion Gap 11.3 mmol/L (3-11); BUN 13 mg/dL (7-18); Bilirubin, Total 0.4 mg/dL (0.2-1.0); CO2 25.7 mmol/L (21.0-32.0); CREATININE 0.8 mg/dL (0.55-1.02); Calcium 9.2 mg/dL (8.5-10.1); Calculated LDL 213 mg/dL (<100); Chloride 105 mmol/L (98-107); Cholesterol 311 mg/dL (<200); Glucose 156 mg/dL (74-106); HDL Cholesterol 48 mg/dL (40-60); Potassium 3.6 mmol/L (3.5-5.1); Sodium 142 mmol/L (136-145); Total Protein 7.7 g/dL (6.4-8.2); Triglyceride 250 mg/dL (<150)
[2021-05-02 15:24] LABS: Hemoglobin A1C 6.5 % (<5.7)
[2021-05-05 09:05] LABS: DHEA Sulfate 85 ug/dL (See Note)
== END 2021-05-02 11:26 | disposition home or self-care (01) ==
LOC: NCHCN 11:25
PROVIDERS: PCP Family Medicine; Visit Provider Family Medicine
DX: E11.9 Type 2 diabetes mellitus without complications (principal); I10 Essential (primary) hypertension; Z01.818 Encounter for other preprocedural examination
CPT/HCPCS: 80053; 80061; 82627; 85027; 83036

== ENCOUNTER 2021-05-06 02:01 | Outpatient (CLI) | payer MEDICARE, SELFPAY ==
[2021-05-06 10:33] LABS: Source Nasal/Nares
[2021-05-06 16:24] LABS: COVID-19 PCR Negative (Negative)
== END 2021-05-06 02:02 | disposition home or self-care (01) ==
LOC: LBO 02:02
PROVIDERS: PCP Family Medicine; Visit Provider Student in an Organized Health Care Education/Training Program
DX: Z20.822 Contact with and (suspected) exposure to COVID-19 (principal)
CPT/HCPCS: 87635

== ENCOUNTER 2021-05-08 07:36 | Inpatient (IN) | payer MEDICARE, SELFPAY ==
--- NOTE | 2021-02-17 08:16 | W.ANESCON ---
General Date of Service Date of Service: 02/17/21 Reason for Consult Requesting Provider: Jean Paul Howe How Consult Conducted:: Chart Review Reason for Consult:: advanced age, hx of heart murmur, borderline diabetic control Consult Recommendation after Review:: Agree with Dr. Howe's note regarding better diabetic control prior to surgery since A1C has been trending up. No evidence of any cardiac concerns, echo from 08/16/19 reviewed. Meds Allergies and Home Medications Allergies Allergy/AdvReac Type Severity Reaction Status Date / Time adhesive Allergy Intermediate itchy rash Verified 02/11/21 14:18 niacin Allergy Intermediate Skin Rash Verified 02/11/21 14:18 Sulfa (Sulfonamide Allergy Intermediate Skin Rash Verified 02/11/21 14:18 Antibiotics) codeine AdvReac Intermediate VOMITING Verified 02/11/21 14:18 morphine AdvReac Mild vomiting Verified 02/11/21 14:18 Home Medication Medication Instructions Recorded cetirizine 10 mg PO DAILY 03/02/13 cholecalciferol (vitamin D3) 2,000 unit PO DAILY 03/02/13 cyanocobalamin (vitamin B-12) 1,000 mcg IJ DIRECTED 03/02/13 trazodone 50 mg PO HS 03/02/13 cod liver oil 1 ea PO HS NS 11/02/17 lisinopril 2.5 mg PO DAILY tab-cap NS 11/02/17 omega-3 fatty acids-fish oil 2 ea PO DAILY NS 11/02/17 sennosides [Senokot] 2 tab-cap PO HS tab-cap NS 11/02/17 vitamin E (dl, acetate) 100 unit PO HS NS 11/02/17 pyridoxine (vitamin B6) [Vitamin 100 mg PO HS 11/15/17 B-6] triamcinolone acetonide 1 applic TOPICAL BID 08/04/18 ascorbate calcium-bioflavonoid 500 1 tab PO DAILY tab 08/24/18 mg-200 mg tablet omeprazole 20 mg capsule,delayed 20 mg PO DAILY cap 08/24/18 release imfyxlonzm-rlhmkvqqdxbef-urquhbpk 1 cap PO ONCE PRN cap 03/17/19 50 mg-300 mg-40 mg capsule acetaminophen 1,000 mg PO TID 06/11/20 diclofenac sodium [Voltaren] 2 g TOPICAL QID 06/11/20 gabapentin 400 mg PO HS 06/11/20 ondansetron 4 mg PO Q6H PRN 06/11/20 ondansetron HCl [Zofran] 4 mg PO BID PRN 06/11/20 sucralfate [Carafate] 1 g PO QID 06/11/20 simvastatin 40 mg tablet 40 mg PO DAILY 02/11/21 PFSH Active Problems Active Problems: Problem Status Onset Code Arthritis of right glenohumeral joint M19.011 Arthritis of right acromioclavicular joint M19.011 Tubular adenoma of colon 01/06/17 D12.6 Degenerative spondylolisthesis M43.10 Degenerative scoliosis in adult patient M41.50 Epigastric pain R10.13 Carpal tunnel syndrome of left wrist G56.02 Carpal tunnel syndrome of right wrist G56.01 Medical History Medical History Abdominal pain Acromioclavicular joint pain Adenomatous colon polyp Allergic rhinitis Anxiety Arthritis Back pain Cataract Cataract, bilateral Chronic gastritis Cortical cataract of left eye Cortical cataract of right eye Cough CTS (carpal tunnel syndrome) Diabetes mellitus Diabetes mellitus type 2, controlled controlled with diet per pt. Ear pain, left Eczema Esophagitis Fatigue Fracture of right lower extremity Fracture of right lower leg Gait abnormality GERD (gastroesophageal reflux disease) Grief reaction H pylori ulcer Headache Heart murmur Heart murmur, systolic Helicobacter pylori (H. pylori) infection Hip pain HTN (hypertension) Hyperlipidemia Hyperparathyroidism pt. is unsure if she has this condition Low back pain Migraine Nuclear sclerotic cataract of left eye Nuclear sclerotic cataract of right eye Onychomycosis Onychomycosis of toenail Palpitations Peripheral neuropathy Right hip pain Shoulder pain, right Urinary incontinence Vertigo Vitamin B12 deficiency Surgical History Surgical History Colonoscopy - IV Sedation (01/06/17) H/O esophagogastroduodenoscopy (~02/01/19) 2018-Gastritis History of carpal tunnel release Bilateral History of nasal surgery Right Leg fracture pt reports metal plate in right leg Status post cataract extraction and insertion of intraocular lens of left eye (08/22/18) Status post cataract extraction and insertion of intraocular lens of right eye (08/08/18) Tubal Ligation, Tobacco Smoking/Tobacco Use Status: Never Alcohol Alcohol Intake: never Substance Use Substance use: Never Substance use type: does not use Vital Signs & Lab Results Point of Care Results Nursing Point of Care Results: No Data to Display Lab Results Blood Type / Crossmatch: No Data to Display Complete Blood Count: No Data to Display Complete Metabolic Panel: No Data to Display Liver Function Panel: No Data to Display Coagulation Panel: No Data to Display Cardiac Panel: No Data to Display Arterial Blood Gas: No Data to Display Venous Blood Gas: No Data to Display Pancreas Panel: No Data to Display Thyroid Panel: No Data to Display Infectious Disease: No Data to Display Blood Cultures: No Data to Display Toxicology Panel: No Data to Display Imaging and Studies Imaging and Studies Echocardiogram Summary: Conclusion Left Ventricle : The left ventricle is normal. Left ventricular systolic function is normal. Borderline left ventricular hypertrophy. There is normal LV segmental wall motion. The left ventricular diastolic function is normal. LVEF is estimated to be 60-65%. Right Ventricle : The right ventricle is normal size. The right ventricular systolic function appears normal. Atria : The left atrium size is normal. The right atrium size is normal. Aortic Valve : The Aortic valve is sclerotic. Aortic valve has calcified nodular thickening. No aortic regurgitation is present. Mild aortic stenosis. Mitral Valve : Mild mitral annular calcification. Mitral valve leaflets are calcified. Trace mitral regurgitation. No evidence of mitral valve stenosis. Great Vessels : The ascending aorta is mildly dilated. IVC is normal in size and collapses >50% with inspiration. There is no prior echocardiogram available for comparison. 08/16/19
[2021-05-08] VITALS (9 sets, daily range): BP systolic 109–147; BP diastolic 62–74; PULSE 60–78; RESP 16–25; TEMP 36.1–37.1; O2SAT 93–99; BMI 26.2
--- NOTE | 2021-05-08 06:28 | W.ANESPRE ---
General Info Date of Service Date Performed: 05/08/21 Height: 4 ft 10 in Weight: 56.845 kg Body Mass Index (BMI): 26.2 Surgical Procedure: Operation Date: 05/08/21 10:25 Proposed Procedures Side Surgeon p Reverse Shoulder Total Arthroplasty, biceps tenodesis, and any other indicated procedures Right Jean Paul Howe MD Meds Allergies and Home Medications Allergies Allergy/AdvReac Type Severity Reaction Status Date / Time adhesive Allergy Intermediate itchy rash Verified 05/08/21 08:19 niacin Allergy Intermediate Skin Rash Verified 05/08/21 08:19 Sulfa (Sulfonamide Allergy Intermediate Skin Rash Verified 05/08/21 08:19 Antibiotics) codeine AdvReac Intermediate VOMITING Verified 05/08/21 08:19 morphine AdvReac Mild vomiting Verified 05/08/21 08:19 Home Medication Medication Instructions Recorded cetirizine 10 mg PO DAILY 03/02/13 cholecalciferol (vitamin D3) 2,000 unit PO DAILY 03/02/13 cyanocobalamin (vitamin B-12) 1,000 mcg IJ DIRECTED 03/02/13 trazodone 50 mg PO HS 03/02/13 cod liver oil 1 ea PO HS NS 11/02/17 lisinopril 2.5 mg PO DAILY tab-cap NS 11/02/17 omega-3 fatty acids-fish oil 2 ea PO DAILY NS 11/02/17 sennosides [Senokot] 2 tab-cap PO HS tab-cap NS 11/02/17 vitamin E (dl, acetate) 100 unit PO HS NS 11/02/17 pyridoxine (vitamin B6) [Vitamin 100 mg PO HS 11/15/17 B-6] triamcinolone acetonide 1 applic TOPICAL BID 08/04/18 ascorbate calcium-bioflavonoid 500 1 tab PO DAILY tab 08/24/18 mg-200 mg tablet omeprazole 20 mg capsule,delayed 20 mg PO DAILY cap 08/24/18 release hdrjxhuazm-zmnklqdhbykjo-rmridbkd 1 cap PO ONCE PRN cap 03/17/19 50 mg-300 mg-40 mg capsule acetaminophen 1,000 mg PO TID 06/11/20 diclofenac sodium [Voltaren] 2 g TOPICAL QID 06/11/20 gabapentin 400 mg PO HS 06/11/20 ondansetron 4 mg PO Q6H PRN 06/11/20 ondansetron HCl [Zofran] 4 mg PO BID PRN 06/11/20 sucralfate [Carafate] 1 g PO QID 06/11/20 simvastatin 40 mg tablet 40 mg PO DAILY 02/11/21 Current Visit Medications: Current Medications Generic Name Dose Route Start Last Admin Trade Name Freq PRN Reason Stop Dose Admin Ringer's Solution 1,000 mls @ 100 mls/hr 05/08/21 06:00 IV 06/06/21 23:59 INFUSION VIDHYA Cefazolin Sodium/Dextrose 2 gm in 50 mls @ 100 mls/hr 05/08/21 06:00 Ancef Duplex IVPB 05/08/21 16:00 PREOP VIDHYA Tranexamic Acid 1,000 mg/ 60 mls @ 360 mls/hr 05/08/21 06:00 Sodium Chloride IVPB 05/08/21 16:00 PREOP VIDHYA IV Miscellaneous Supplies 1 each 05/08/21 06:00 Iv Access IV 06/06/21 23:59 DIRECTED VIDHYA Sodium Chloride 0 ml 05/08/21 06:00 Normal Saline Flush 10 Ml Syr IV 06/06/21 23:59 PRN PRN Sodium Chloride 0 ml 05/08/21 06:00 Normal Saline 10 Ml Vial IJ 06/06/21 23:59 DIRECTED PRN Sterile Water 0 ml 05/08/21 06:00 Water,Injection,Sterile 10 Ml Vial IJ 06/06/21 23:59 DIRECTED PRN PFSH Active Problems Active Problems: Problem Status Onset Code Arthritis of right glenohumeral joint M19.011 Arthritis of right acromioclavicular joint M19.011 Tubular adenoma of colon 01/06/17 D12.6 Degenerative spondylolisthesis M43.10 Degenerative scoliosis in adult patient M41.50 Epigastric pain R10.13 Carpal tunnel syndrome of left wrist G56.02 Carpal tunnel syndrome of right wrist G56.01 Medical History Medical History Abdominal pain Acromioclavicular joint pain Adenomatous colon polyp Allergic rhinitis Anxiety Arthritis Back pain Cataract Cataract, bilateral Chronic gastritis Cortical cataract of left eye Cortical cataract of right eye Cough CTS (carpal tunnel syndrome) Diabetes mellitus Diabetes mellitus type 2, controlled controlled with diet per pt. Ear pain, left Eczema Esophagitis Fatigue Fracture of right lower extremity Fracture of right lower leg Gait abnormality GERD (gastroesophageal reflux disease) Grief reaction H pylori ulcer Headache Heart murmur Heart murmur, systolic Helicobacter pylori (H. pylori) infection Hip pain HTN (hypertension) Hyperlipidemia Hyperparathyroidism pt. is unsure if she has this condition Low back pain Migraine Nuclear sclerotic cataract of left eye Nuclear sclerotic cataract of right eye Onychomycosis Onychomycosis of toenail Palpitations Peripheral neuropathy Right hip pain Shoulder pain, right Urinary incontinence Vertigo Vitamin B12 deficiency Surgical History Surgical History Colonoscopy - IV Sedation (01/06/17) H/O esophagogastroduodenoscopy (~02/01/19) 2018-Gastritis History of carpal tunnel release Bilateral History of nasal surgery Right Leg fracture pt reports metal plate in right leg Status post cataract extraction and insertion of intraocular lens of left eye (08/22/18) Status post cataract extraction and insertion of intraocular lens of right eye (08/08/18) Tubal Ligation, Tobacco Smoking/Tobacco Use Status: Never Alcohol Alcohol Intake: never Substance Use Substance use: Never Substance use type: does not use Vital Signs and Lab Results Vital Signs Most Recent Vital Signs in EMR: Temp Pulse Resp BP Pulse Ox 36.1 C L 65 18 135/71 99 05/08/21 08:03 05/08/21 08:03 05/08/21 08:03 05/08/21 08:03 05/08/21 08:03 Lab Results Blood Type / Crossmatch: No Data to Display Complete Blood Count: White Blood Count 4.72 10^3/uL (4.4-10.8) 05/02/21 09:55 05/02/21 Red Blood Count 3.99 10^6/uL (3.93-5.22) 05/02/21 09:55 05/02/21 Hemoglobin 12.0 g/dL (11.2-15.7) 05/02/21 09:55 05/02/21 Hematocrit 37.3 % (36.0-46.0) 05/02/21 09:55 05/02/21 Platelet Count 268 10^3/uL (130-400) 05/02/21 09:55 05/02/21 Complete Metabolic Panel: Sodium Level 142 mmol/L (136-145) 05/02/21 09:55 05/02/21 Potassium Level 3.6 mmol/L (3.5-5.1) 05/02/21 09:55 05/02/21 Chloride Level 105 mmol/L (98-107) 05/02/21 09:55 05/02/21 Carbon Dioxide Level 25.7 mmol/L (21.0-32.0) 05/02/21 09:55 05/02/21 Blood Urea Nitrogen 13 mg/dL (7-18) 05/02/21 09:55 05/02/21 Creatinine 0.8 mg/dL (0.55-1.02) 05/02/21 09:55 05/02/21 Estimated GFR/1.73 m2 >= 60.00 (mL/min/1.73m2) 05/02/21 09:55 05/02/21 Calcium Level 9.2 mg/dL (8.5-10.1) 05/02/21 09:55 05/02/21 Albumin 3.7 g/dL (3.4-5.0) 05/02/21 09:55 05/02/21 Glucose Level 156 mg/dL (74-106) H 05/02/21 09:55 05/02/21 Hemoglobin A1c 6.5 % (<5.7) H 05/02/21 09:55 05/02/21 Liver Function Panel: Alanine Aminotransferase (ALT/SGPT) 24 U/L (14-59) 05/02/21 09:55 05/02/21 Aspartate Amino Transf (AST/SGOT) 18 U/L (15-37) 05/02/21 09:55 05/02/21 Coagulation Panel: No Data to Display Cardiac Panel: No Data to Display Arterial Blood Gas: No Data to Display Venous Blood Gas: No Data to Display Pancreas Panel: No Data to Display Thyroid Panel: No Data to Display Infectious Disease: Coronavirus (COVID-19)(PCR) Negative (Negative) 05/06/21 10:31 05/06/21 Coronavirus 2019 Source Nasal/Nares 05/06/21 10:31 05/06/21 Blood Cultures: No Data to Display Toxicology Panel: No Data to Display Imaging and Studies Imaging and Studies EKG Summary: 2020: sinus rhythm. ant qs Echocardiogram Summary: 02/17/2021: Left Ventricle : The left ventricle is normal. Left ventricular systolic function is normal. Borderline left ventricular hypertrophy. There is normal LV segmental wall motion. The left ventricular diastolic function is normal. LVEF is estimated to be 60-65%. Right Ventricle : The right ventricle is normal size. The right ventricular systolic function appears normal. Atria : The left atrium size is normal. The right atrium size is normal. Aortic Valve : The Aortic valve is sclerotic. Aortic valve has calcified nodular thickening. No aortic regurgitation is present. Mild aortic stenosis. Mitral Valve : Mild mitral annular calcification. Mitral valve leaflets are calcified. Trace mitral regurgitation. No evidence of mitral valve stenosis. Great Vessels : The ascending aorta is mildly dilated. IVC is normal in size and collapses >50% with inspiration. There is no prior echocardiogram available for comparison. 08/16/19 Anesthesia Assessment and Plan Anesthesia History Personal History: No History of Anesthesia Complications Family History: No Family History of Anesthesia Complications Exercise Tolerance Exercise Tolerance: Metabolic Equivalents>4 Cardiac & Pulmonary Exam Cardiac Exam: Heart Murmur Present Pulmonary Exam: Clear Bilateral Breath Sounds Airway Exam Known Difficult Airway: No Mallampati Class: 2 Mouth Opening: Normal (> 3cm) Thyromental Distance: Less than 3 cm Neck Range of Motion: Limited ROM Neck Circumference: Normal Teeth Condition: Normal Dentition ASA Classification ASA Score: ASA 2 Emergency Case?: No NPO Status NPO Status: NPO Clears >2 hours, Solids >8 hours Anesthesia Plan Resuscitation Status: Full Code Anesthesia Technique: General Anesthesia Airway Planned: Natural Airway Pain Management: Surgeon and patient request nerve block Monitors Used: Standard Monitors Preoperative Comments:: 75 yo female for right shoulder replacement. Sig PMHx: anxiety, GERD (omeprazole), HTN (lisinopril), preDM, never smoker, Previous Anes: multiple anesthetics, none with an airway, all without apparent complication. Plan: ALIS LEE.
[2021-05-08] MEDS: Lactated Ringers 1,000 ML 100 ML IV ×2 (08:46→22:01)
[2021-05-08] MEDS: Bupivacaine LIPOSOME/PF 133 MG/10 ML VIAL IJ (09:15)
[2021-05-08] MEDS: Bupivacaine 0.5% Pres-Free 30 ML VIAL (09:15)
--- NOTE | 2021-05-08 09:30 | W.ANESNERVE ---
Nerve Block Single Injection Procedure Date and Time Date Performed: 05/08/21 Procedure Start: 09:15 Location Where Procedure Performed Procedure Location: Day Surgery Unit Reason Performed: Postoperative Analgesia Requesting Provider: Jean Paul Howe Timeout Performed Timeout Performed: Yes Monitoring Used ECG, Blood Pressure and SpO2 Sterility Sterility: Hand Hygiene, Surgical Cap, Surgical Mask, Sterile Gloves and Chlorhexidine Sedation Given During Procedure Sedation Given (Indicate Dose Given): No Sedation given Patient Mental Status Patient Mental Status: Awake Nerve Block 1st Nerve Block: Laterality: Right Block Type: Interscalene Needle / Catheter Used: 100mm SonoPlex II Local Anesthetic Bolus (Indicate Dose Given): Lidocaine used for local infiltration of skin, Injected in 3-5ml increments after negative blood aspiration, Bupivacaine 0.5% Dose:: 10 mL and Exparel Dose:: 10 mL Additives (Indicate Dose Given): Normal Saline Ultrasound: Sterile probe cover and gel used Ultrasound Image Saved?: Yes Nerve Stimulator: Not Used Paresthesia: None Procedure Tolerated: No Complications and Patient tolerated well Procedure Outcome: Successful Performed By: Junior Pepe Other (not listed above): Sachi Bell SRNA
[2021-05-08] MEDS: ceFAZolin 2 GM/50 ML BAG IVPB ×2 (10:30→18:07)
--- NOTE | 2021-05-08 13:00 | W.PM.OP ---
Date of service: 07/19/20 Time of Service: 11:00 Operative Note Operative Note DATE OF PROCEDURE: 05/08/21 PRE-OP DIAGNOSIS: Right shoulder arthritis POST-OP DIAGNOSIS: same PROCEDURE: Right Reverse total shoulder arthroplasty, CPT # 38946 The assistant restaurant general manager was medically required as this procedure involves retraction, protection of neurovascular structures, and manipulation of multiple instruments and implants at the same time, which cannot be done without a skilled assistant restaurant general manager. SURGEON: Jean Paul Howe BIOINFORMATICS SPECIALIST: Delonte Souza ANESTHESIA TYPE: General LMA/ETT and Primary Nerve Block Refer to Anesthesia Record ESTIMATED BLOOD LOSS: 75 PATHOLOGY: none sent TOURNIQUET TIME: 0 COMPLICATIONS: None Patient was transported to: PACU Patient's condition: stable Implants: [employer] modular glenoid system baseplate 24 mm [employer] modular glenoid system central post 25 mm [employer] modular glenoid system peripheral compression screws 36 mm inferior, 24 mm superior and locking screws 16mm posterior, 16mm anterior [employer] modular glenoid system glenosphere 36 +4 mm lateralized [employer] humeral stem 135 degrees size 6 [employer] suture cup size 36 neutral offset [employer] humeral insert size 36 +6 mm Indications: Please see complete medical record for details. Findings: Significant long head of the biceps scarring and essentially auto?tenodesed in the bicipital groove. Thinning partial tearing tearing supraspinatus. Subscapularis largely intact. Near?complete articular cartilage loss humeral head and glenoid. Moderate inferior humeral neck osteophyte. Procedure Description: In the operating room, general anesthesia was induced. The patient was positioned beachchair on the operating room table. All bony prominences were well-padded. Preoperative antibiotics were administered. The shoulder was prepped and draped in the usual sterile fashion for shoulder arthroplasty. The correct patient, procedure, and side of the procedure were all verified prior to incision. The deltopectoral approach was taken to the anterior shoulder. Care was taken to bluntly dissect the interval between the deltoid and pectoralis major muscles and to identify the cephalic vein within its fat stripe. The the vein was mobilized medially. Subdeltoid space and conjoined tendon were freed of adhesions. The long head of the biceps tendon was identified just lateral to the lesser tuberosity. The uppermost margin of the pectoralis major tendon was released from the proximal humerus. The long head of the biceps tendon was essentially already tenodesed and unable to be readily freed from the bicipital groove. Decision was made to leave it in place and not mobilize it and then repair it. The biceps tendon was amputated at the superior aspect of the groove near articular margin and followed proximally to identify the rotator interval. A subscapularis peel was performed taking care to release the entirety tendon in a full-thickness fashion from superior to inferior and lateral to medial while bringing the arm gradually into external rotation. Care was taken to avoid the axillary nerve by only working on the bone inferiorly and medially. The subscapularis was tagged using SutureTape in a Shawn-Kirby fashion with stitch was placed superiorly and inferiorly at the medial footprint of the tendon. The stitches were used to confirm appropriate mobilization of the subscapularis tendon after gentle blunt dissection was used to free up the space anterior and posterior to it. Appropriate coagulation was achieved especially inferiorly. The surgical neck was cut using an oscillating saw and the head bone brought back table in case there was a need for future bone grafting. The proximal humeral protection plate was used to provisionally confirm suture cup and glenosphere size and then gently impacted over the bone cut. Attention was then turned to the glenoid and retractors were placed and a 360 degree release performed using the long head of the biceps remnant to remove soft tissue about the glenoid rim. The axillary nerve was palpated but not exposed inferior and traversing from beneath the subscapularis tendon appropriately below the scapular neck heading posteriorly. Care was taken inferiorly to work on bone only between 5 and 7:00 o'clock and bluntly elevate tissues inferiorly. The glenoid was decorticated soft tissue and a minimal amount of residual cartilage. Once adequate exposure had been achieved, the VIP guide was placed on the glenoid and used to confirm placement and trajectory of the central guidepin. The guidepin was inserted through the VIP guide and advanced just into the far cortex and measured slightly short for screw length. The VIP pin was then used to guide a hand placed pin slightly more centrally with a longer trajectory. Depth gauge was used to confirm appropriate central post length. The central reamer followed by the peripheral reamer were then used to the appropriate depths taking care to ensure residual bone anteriorly posteriorly and inferiorly about this diminutive glenoid for the baseplate. The drill was then used for the central post and guidewire easily removed confirming appropriate post length. The baseplate was impacted, checked, and impacted again and fully compressed onto the glenoid surface. Testing the glenoid baseplate resulted in movement through the entire scapula. The over baseplate reamer was used to confirm adequate peripheral reaming had been achieved. The locking guide and drill were used to drill for inferior and superior baseplate nonlocking screws. The depth gauge was used to confirm appropriate screw length and they were each gently engaged and then tightened compressing baseplate to bone. This was repeated for the anterior and posterior for locking screws, and then both tightened into the plate securely. The preselected lateralized glenosphere was applied with the analytical manager and then impacted to engage the Lan taper. It was then locked with appropriate countersinking of the setscrew. The glenosphere was inspected and found to have good fit, appropriate positioning, and no soft tissue or bony impingement especially inferiorly. Attention was then turned back to the proximal humerus, which was delivered from the wound and maintained in external rotation. The protective plate was removed and reamers were started appropriately posterior to the bicipital groove taking care to maintain lateralized alignment so as to be straight in line with the humeral canal. Reaming was done up to size 6. The broaches were sequentially used to open the proximal humerus starting with a size 5 and going up to size 6 and sunk to the appropriate depth while maintaining approximately 30 degrees retroversion. The size 6 had good metaphyseal fit and placement of the calcar as well as rotational control of the proximal humerus in this diminutive patient. A neutral offset guide was used to ream for the suture cup. The humeral trial cup was connected. Trialing was commenced with +3mm. The shoulder was reduced and taken through range of motion. It was felt to slightly loose in terms of stability but otherwise good tension on the conjoined tendon and deltoid. Trialing components were then changed to +6mm liner. The shoulder was reduced and felt to have improved stability with appropriate tension of the deltoid and conjoined tendon. Range of motion was tested past 90 degrees forward elevation, 75 degrees external rotation, internal rotation to the patient's side, and there was no appreciable impingement or notching with the arm in full adduction. This combination of implants was stable even with the patient paralyzed. The trial components were removed from the proximal humerus. The wound was copiously irrigated with normal saline. A 2 mm drill was used to drill 2 drill holes in the lesser tuberosity bicipital groove margin for later subscapularis suture passage repair. The the proximal humeral stem and suture cup were assembled on the back table. They were brought over to the proximal humerus. The suture cup was prepared for speed bridge type subscapularis repair with 4 suture tape pairs placed to medially into laterally through holes in the cup. The 2 lateral pairs were withdrawn out the bone tunnels with a suture passer. The humerus and suture cup were appropriately impacted into the proximal humerus after distributing slight vancomycin powder in the canal. Placement tested and found of excellent rotational control and fixation. Trial reduction for stability and range of motion was done again with the +6 mm combination liner confirming correct size. The trial liner was removed and the definitive liner connected. Shoulder was reduced and these final implants demonstrated excellent range of motion and stability. The shoulder was copiously irrigated with normal saline and then irrisept. Vancomycin powder was distributed deeply about the shoulder and through subcutaneous tissues. The arm was placed in 45 degrees of external rotation. The subscapularis was reduced with the tag stitches and repaired over the implant to the lessor tuberosity using the pairs of medial and lateral SutureTape sutures from the suture cup in a modified speed bridge fashion taking care ensure there was no undue tension. The arm was taken past 60 degrees of external rotation without any displacement of the subscapularis repair. The lateral rotator interval was closed [id number] fashion with an additional suture tape. The deltopectoral interval was well approximated with the cephalic vein buried. Subcutaneous tissue was irrigated then closed using 2-0 Monocryl in a buried interrupted fashion. The skin was closed using 3-0 Monocryl in a buried subcuticular fashion. Skin glue was applied to the incision. A silver impregnated bandage was placed over the incision. The extremity was placed into a shoulder immobilizer. The patient awoke from anesthesia without complication and was taken to the recovery room in stable condition.
--- NOTE | 2021-05-08 13:30 | DI.RAD_ITS ---
Exam(s) XR SHOULDER RT COMPLETE 2+V EXAM: XR SHOULDER RT COMPLETE 2+V CLINICAL HISTORY: Postop. TECHNIQUE: 2D digital imaging was performed. COMPARISON: CR XR SHOULDER RT COMPLETE 2+V from 04/11/2020 FINDINGS: Two postop views reveal satisfactory position alignment of the components of the newly placed reverse prosthesis. No fracture or loosening evident. IMPRESSION: DATA REPOSITORY: RADIATION DOSE DELIVERED:
--- NOTE | 2021-05-08 15:29 | W.ANESPOSTOP ---
Postoperative Evaluation Date, Time and Location Date Performed: 05/08/21 Time Performed: 15:29 Patient Location: Med/Surg Vital Signs Most Recent Imported Vital Signs: Most Recent Vital Signs Temp Pulse Resp BP Pulse Ox 37.1 C 60 18 109/62 93 05/08/21 15:09 05/08/21 15:09 05/08/21 15:09 05/08/21 15:09 05/08/21 15:09 Pain Score Most Recent Pain Score: Most Recent Pain Score Pain Level 3 05/08/21 15:09 Assessment Mental Status: Awake (Alert & Oriented to Patient Baseline) Airway and Respiratory Function: Patent airway with normal (patient baseline) respiratory exam Cardiovascular Function: Hemodynamically Stable Hydration Status: Adequately Hydrated Nausea & Vomiting: No Nausea or Vomiting Pain: Pain is tolerable per patient Peripheral Nerve Block: Regional nerve block not resolved at time of post operative discharge
--- NOTE | 2021-05-08 16:28 | W.PM.PROGNOT ---
Date of Service Date of service: 05/08/21 Time of Service: 15:30 Assessment and Plan Assessment and plan (1) Arthritis of right glenohumeral joint: Status: Acute Assessment and plan: 75-year-old female postop day #0 status post right reverse total shoulder arthroplasty Complete 24 hours postoperative antibiotics Void trial. If unable to void, place chavez and discontinue catheter AM postop day #1 Pain control-Multimodal as ordered. Physical therapy and Occupational Therapy ordered: Reverse TSA protocol. Should remove sling while in bed or resting. Recommend sling when ambulatory or out of home. Gentle passive range of motion to the shoulder. Active range of motion elbow, wrist, and hand. May use upper extremity gently for all essential ADLs including active range of motion within a limited arc with light carrying and weightbearing. Continue mechanical DVT prophylaxis with SCDs and/or AMMON hose No aspirin for additional DVT prophylaxis due to GI issues Plan discharge home tomorrow with home health services and physical therapy as needed Subjective Subjective Interval history since last seen: Feeling well. Comfortable. No complaints. Exam Narrative Exam Narrative: Awake and comfortable resting hospital bed. Breathing comfortably on room air. Sling removed without difficulty. Patient able to demonstrate motor distally and hand limited fashion. Sensory block dense about shoulder and throughout the right upper extremity. Dressing clean dry intact. Compartments soft. 2+ radial pulse. Regular rate and rhythm. Tolerates gentle passive range of motion at the shoulder without difficulty. Objective Last Vital Signs Temp 98.8 F 05/08/21 15:09 Pulse 60 05/08/21 15:09 Resp 18 05/08/21 15:09 BP 109/62 05/08/21 15:09 Pulse Ox 93 05/08/21 15:09
[2021-05-08] MEDS: Normal Saline Flush 10 ML SYR IV (22:01)
[2021-05-08] MEDS: Omeprazole 20 MG CAPCR PO (22:14)
[2021-05-09 00:11] VITALS: BP 110/62; PULSE 62; RESP 18; TEMP 36.5; O2SAT 98
[2021-05-09] MEDS: ceFAZolin 2 GM/50 ML BAG IVPB ×2 (02:10→09:57)
[2021-05-09] MEDS: Normal Saline Flush 10 ML SYR IV ×2 (02:11→09:57)
[2021-05-09] MEDS: Naproxen 500 MG TAB PO (08:08)
[2021-05-09] MEDS: Omeprazole 20 MG CAPCR PO (08:10)
--- NOTE | 2021-05-09 09:22 | OT.INIE ---
Occupational Therapy Notes Inpatient Occupational Therapy Evaluation Date: 05/09/21 Referring Doctor:Jean Paul Howe MD OT Orders: Urgent Precautions: RTSA restrictions, full PATIENT PROFILE/ADMITTING DIAGNOSIS: Pt is a 75 year old female who was referred to skilled Occupational Therapy services s/p a Right Reverse total shoulder arthroplasty performed by Dr. Howe on 05/08/21. Past Medical History: Medical History Abdominal pain Acromioclavicular joint pain Adenomatous colon polyp Allergic rhinitis Anxiety Arthritis Back pain Cataract Cataract, bilateral Chronic gastritis Cortical cataract of left eye Cortical cataract of right eye Cough CTS (carpal tunnel syndrome) Diabetes mellitus Diabetes mellitus type 2, controlled controlled with diet per pt. Ear pain, left Eczema Esophagitis Fatigue Fracture of right lower extremity Fracture of right lower leg Gait abnormality GERD (gastroesophageal reflux disease) Grief reaction H pylori ulcer Headache Heart murmur Heart murmur, systolic Helicobacter pylori (H. pylori) infection Hip pain HTN (hypertension) Hyperlipidemia Hyperparathyroidism pt. is unsure if she has this condition Low back pain Migraine Nuclear sclerotic cataract of left eye Nuclear sclerotic cataract of right eye Onychomycosis Onychomycosis of toenail Palpitations Peripheral neuropathy Right hip pain Shoulder pain, right Urinary incontinence Vertigo Vitamin B12 deficiency Surgical History Colonoscopy - IV Sedation (01/06/17) H/O esophagogastroduodenoscopy (~02/01/19) 2018-Gastritis History of carpal tunnel release Bilateral History of nasal surgery Right Leg fracture pt reports metal plate in right leg Status post cataract extraction and insertion of intraocular lens of left eye (08/22/18) Status post cataract extraction and insertion of intraocular lens of right eye (08/08/18) Tubal Ligation, Social History/Home Situation: Pt states that she lives in a private home with her daughter who is taking time off from work to help care for her. She states that she likes to remain active and does not sit well. She is (I) at her baseline level of function with modified techniques already due to the limitations that she already had in her (R) UE. She is walking without an assistive device and states that she has every thing that she needs in her home setting. Equipment owned/DME: cane, FWW, grab bars, shower seat SUBJECTIVE: Pt was sitting in the chair, she notes that she would like to return home and has good support for when she does. OBJECTIVE: General Observation: Sling on (R) UE, alert and oriented Mental Status: A&Ox4 Pain: Better now post medication, pt reports 8/10 over night ROM: RUE NT L UE AROM WFL STRENGTH: RUE NT LUE 4/5 throughout FUNCTIONAL MOBILITY/ADLS: Self care Training [id number]: OT educated and trained pt in donning and doffing sling and shirt with restrictions. We went over restrictions post surgical intervention and use of (R) UE within performance of her ADL/IADL routines. OT emphasized the importance of elbow care and sling wear and care. Pt is receptive to this and verbalizes understanding. BALANCE: Static sitting Normal Dynamic Sitting Normal SPECIAL TESTS: Daily Activity Limitations Standardized Measure [facility] AM -PAC ?6 clicks? Daily Activity Inpatient Short Form: Raw score: 20 Standardized score: 42.03 CMS score: 38.32% INFORMED CONSENT/EDUCATION: Pt instructed in purpose of OT Consult and plan of care. ASSESSMENT: Patient is a 75-year-old female referred to occupational therapy services with diagnosis of s/p reverse total shoulder performed by Dr. Howe on 05/08/21. Patient presents with clinical signs and symptoms consistent with dx, as demonstrated by the following impairment level findings/functional limitations: 1. Decreased gross and fine motor control of (R) UE 2. Dominant UE affected 3. Increased pain in (R) shoulder 4. Impairments in LE ADLS 5. Decreased AROM of (R) UE 6. Decreased Functional activity tolerance of (R) UE 7. S/p operative measures with restrictions per MD (pt understands and can verbalize) AMPAC score 20 Patient is assessed as a Moderate 03941 complexity based on the following: History: see above Examination: see functional limitations as noted above Presentation: evolving Decision Making: AMPAC score 20 GOALS N/A PLAN OF CARE/TREATMENT PLAN: Discharge from skilled OT services. DISCHARGE RECOMMENDATIONS OT recommends that pt return home when medically cleared per MD. She has good family support and has already established compensatory techniques to be (I) when she returns. TREATMENT TIME/MINUTES/CODES 90783, [id number], 20 minutes (08:59) DESI Garcia/[facility]
--- NOTE | 2021-05-09 10:57 | PT.INIE ---
Date of service: 05/09/21 Time of Service: 10:57 PT Notes Visit Reasons: Right Shoulder Arthritis Physical Therapy Inpatient Initial Evaluation Date: 05/09/2021 Referring Doctor: Jean Paul Howe MD PT Orders: PT CONSULT: Status post Ortho surgery. Right Reverse TSA. Precautions: Fall. Standard. R rTSA protocol in place. Patient Profile/Admitting Diagnosis: Elayne is a 75-year-old R-hand dominant female with right shoulder arthritis and is status post right reverse total shoulder arthroplasty on postoperative day 1. PMHX: Medical History Abdominal pain Acromioclavicular joint pain Adenomatous colon polyp Allergic rhinitis Anxiety Arthritis Back pain Cataract Cataract, bilateral Chronic gastritis Cortical cataract of left eye Cortical cataract of right eye Cough CTS (carpal tunnel syndrome) Diabetes mellitus Diabetes mellitus type 2, controlled controlled with diet per pt. Ear pain, left Eczema Esophagitis Fatigue Fracture of right lower extremity Fracture of right lower leg Gait abnormality GERD (gastroesophageal reflux disease) Grief reaction H pylori ulcer Headache Heart murmur Heart murmur, systolic Helicobacter pylori (H. pylori) infection Hip pain HTN (hypertension) Hyperlipidemia Hyperparathyroidism pt. is unsure if she has this condition Low back pain Migraine Nuclear sclerotic cataract of left eye Nuclear sclerotic cataract of right eye Onychomycosis Onychomycosis of toenail Palpitations Peripheral neuropathy Right hip pain Shoulder pain, right Urinary incontinence Vertigo Vitamin B12 deficiency Surgical History Colonoscopy - IV Sedation (01/06/17) H/O esophagogastroduodenoscopy (~02/01/19) 2018-Gastritis History of carpal tunnel release Bilateral History of nasal surgery Right Leg fracture pt reports metal plate in right leg Status post cataract extraction and insertion of intraocular lens of left eye (08/22/18) Status post cataract extraction and insertion of intraocular lens of right eye (08/08/18) Tubal Ligation, Social History/Home Situation: Lives in a private home with ramp to enter. Still drives. 1 fall in the past 12 months. Daughter lives with patient. Grabdaughter coming as well to come and provide needed help. Indepedent with all ADLs prior to surgery. Equipment Owned/DME: FWW, SPC Subjective: Agreeable to PT consult. Pleasant and cooperative. Reports discomfort at end range of passive shoulder movements that resolved with rest. Hopeful about going home today. Objective: General Observation: Seated on bedisde recliner. IV in L UE. R UE in sling. Mental Status: Alert and oriented as to person, place, time, and purpose. Able to pay attention, focus, and respond appropriately. Pain: 3-4/10 in R shoulder with passive range of motion exercises ROM: Right Upper Extremity: Shoulder Flexion up to 60 degrees PASSIVELY. Shoulder abduction up to 50 degrees PASSIVELY. Elbow flexion able to bedn for the first 45 degrees and required assistance towards end of range. Wrist flexion WFL. Functional opening and closing of hand WFL. Left Upper Extremity: Shoulder Flexion WFL. Shoulder abduction WFL. Elbow flexion WFL. Wrist flexion WFL. Functional opening and closing of hand WFL. Right Lower Extremity: Hip flexion WFL. Hip abduction WFL. Knee flexion WFL. Ankle dorsiflexion WFL. Ankle plantarflexion WFL. Left Lower Extremity: Hip flexion WFL. Hip abduction WFL. Knee flexion WFL. Ankle dorsiflexion WFL. Ankle plantarflexion WFL. Strength: Right Upper Extremity: Shoulder flexors NT. Shoulder abductors NT. Elbow flexors NT. Elbow extensors NT. Wardrobe Technician weak but functional. Left Upper Extremity: Shoulder flexors 5/5. Shoulder abductors 5/5. Elbow flexors 5/5. Elbow extensors 5/5. Wardrobe Technician strong. Right Lower Extremity: Hip flexors 5/5. Hip abductors 5/5. Knee flexors 5/5. Knee extensors 5/5. Ankle dorsiflexors 5/5. Ankle plantarflexors 5/5. Left Lower Extremity: Hip flexors 5/5. Hip abductors 5/5. Knee flexors 5/5. Knee extensors 5/5. Ankle dorsiflexors 5/5. Ankle plantarflexors 5/5. Bed Mobility/Transfers: Sit to stand stand by assist Stand to sit stand by assist Bed to toilet seat stand by assist Gait: Instructed patient with level surface ambulation of 80 feet requiring stand by assist. No AD needed. No arm swing on R due to postoperative status. THERA EX: Passive ROM to R shoulder. Instructed patient with pendulum exercises to mobilize R shoulder safely while holding onto something sturdy with the L hand to reduce fall risk. Balance: Static Sitting: Normal Dynamic Sitting: Normal Static Standing: Fair Dynamic Standing: Fair Special Tests: Mobility Limitations Standardized Measure [facility]-PAC 6 clicks Basic Mobility Inpatient Short Form: Raw Score: 23 CMS Score: 11% deficit Informed Consent/Education: Patient was instructed in purpose of PT consult and plan of care. Agreeable to proceed with established PT POC to achieve personal goals. Assessment: Requires no AD for ambulation. Understands precautions and HEP provided for patient. Pain minimally limiting passive shoulder range of motion on the R. WIll have good support at home. Patient presents with clinical signs and symptoms consistent with current/admitting diagnoses that have resulted to mobility limitations, gait instability, generalized weakness, and overall ADL decline as demonstrated by the following impairment level findings: 1. Decreased strength to R shoulder major muscle groups 3. Impaired activity tolerance 4. Limitation of joint range of motion in R shoulder due to postoperative precautions 5. Pain in R shoulder Impairments are contributing to the following functional limitations: 1. Increased completion time for mobility ADL performance Patient is assessed as a 82500 moderate complexity based on the following: History: 75-year-old female with past medical history as indicated above Examination: Demonstrable impairment in strength, balance, and mobility level with underlying impairments and functional limitations as exhibited above as well as deficit score of 11% utilizing the [facility] Mobility Inpatient Short Form Presentation: Evolving Decision Makin moderate complexity Goals: N/A. PT evaluation and one treatment shoulder only for thera ex, functional mobility training and HEP instruction. Plan of Care/Treatment Plan: N/A. PT evaluation and one treatment shoulder only for thera ex, functional mobility training and HEP instruction. DISCHARGE RECOMMENDATIONS: [] Home with no services [] [X] Home with services. Home when medically cleared by orthopedic surgeon. OP PT services to facilitate return to all ADLs independently. [] Home with outpatient PT [] [] SNF for continued rehabilitation [] [] Group Home Care [] [] SNF versus LTC based on ability to participate and progress [] TREATMENT CODE/TIME: 75931 x 28 minutes beginning at 10:57 AM. Thank you for the opportunity to participate in the care of this patient. Padmini Geiger PT, DPT, CLT [facility] [place], [place] Padmini Geiger PT, DPT, CLT [facility] [place], [place]
--- NOTE | 2021-05-09 11:40 | DSE_ITS ---
Date of service: 05/09/21 Time of Service: 11:30 DS: Diagnosis Discharge Diagnosis (1) Arthritis of right glenohumeral joint: Status: Acute Discharge Plan Disposition Patient Disposition: HOME Condition: Stable Discharge Details Reason For Visit: Right Shoulder Arthritis Admit Date/Time: 05/08/21 07:36 Admit Provider: Jean Paul Howe Attending Provider: Jean Paul Howe Primary Care Provider: Zaynab Thacker V Hospital Course Hospital Course: Right reverse TSA 05/08/2021. Postoperative course uncomplicated. Home Meds and New Rx's Prescriptions: New naproxen 250 mg tablet 250 mg PO BID PRN (Reason: Moderate pain or swelling) Qty: 30 RF: 0 oxycodone 5 mg tablet 5 mg PO Q4H PRN (Reason: moderate to severe pain) Qty: 16 RF: 0 Continued simvastatin 40 mg tablet 40 mg PO DAILY RF: 0 sucralfate [Carafate] 1 gram Tablet 1 g PO QID RF: 0 ondansetron HCl [Zofran] 4 mg Tablet 4 mg PO BID PRNRF: 0 gabapentin 100 mg Capsule 400 mg PO HS RF: 0 ondansetron 4 mg Film 4 mg PO Q6H PRNRF: 0 acetaminophen 500 mg tablet 1,000 mg PO TID RF: 0 sennosides [Senokot] 8.6 MG tablet 2 tab-cap PO HS RF: 0 lisinopril 2.5 MG tablet 2.5 mg PO DAILY RF: 0 spyyyiyhul-vmpsfmlxuxbwr-wjhx [Fioricet] 50-300-40 mg capsule 1 cap PO ONCE PRNRF: 0 trazodone 50 MG tablet 50 mg PO HS RF: 0 cetirizine 10 MG tablet,chewable 10 mg PO DAILY RF: 0 cholecalciferol (vitamin D3) 1,000 UNITS tablet 2,000 unit PO DAILY RF: 0 omeprazole 20 mg capsule,delayed release(DR/EC) 20 mg PO DAILY RF: 0 pyridoxine (vitamin B6) [Vitamin B-6] 100 MG tablet 100 mg PO HS RF: 0 triamcinolone acetonide 0.1 % Cream 1 applic TOPICAL BID RF: 0 Discontinued diclofenac sodium [Voltaren] 1 % Gel 2 g TOPICAL QID RF: 0 cod liver oil 1 EACH capsule 1 ea PO HS RF: 0 vitamin E (dl, acetate) 100 UNIT capsule 100 unit PO HS RF: 0 omega-3 fatty acids-fish oil 1 EACH capsule 2 ea PO DAILY RF: 0 cyanocobalamin (vitamin B-12) 1,000 MCG/1 ML solution 1,000 mcg IJ DIRECTED RF: 0 Tonia-C with Bioflavonoids 500-200 mg tablet 1 tab PO DAILY RF: 0 Discharge Instructions Additional Instructions: Surgery: Right reverse total shoulder arthroplasty with biceps tenodesis 05/08/2021 Activity: Do not lift anything heavier than a coffee. You should keep your arm at your side in a neutral position at all times except for gentle range of motion exercises, physical therapy, and essential activities. You should use the sling whenever you are out of the house. You may have to adjust the abduction pillow or remove it for comfort. At home it is best to remove the sling and rest the arm on a pillow at your side or support the operative side with your other hand. A physical therapy prescription will be sent elect ronically to start in about 2-3 weeks. Reverse TSA Protocol: Postoperative Weeks 0-6 ?Immobilization: Sling may be removed for therapeutic exercises, resting in bed or chair, and bathing ?Motion exercises: Pendulum exercises, elbow range- of-motion exercises, wrist euyuj-os-evtnxe exercises, and cattle producers strengthening ?Restrictions: No active internal rotation or backwards extension Postoperative Weeks 6-12 ?Immobilization: Sling discontinued ?Motion exercises: Shoulder passive range of motion, advancing to active- assisted range of motion, and finally active range of motion with a goal of forward flexion to 90? and external rotation of 20? ?Strengthening exercises: Light, resisted forward flexion, external rotation, and abduction limited to isometric exercises and therapy bands with concentric motions only. Continue cattle producers strengthening ?Restrictions: No resisted internal rotation or backwards extension. No scapular retraction exercises with therapy bands Postoperative Months 3-12 ?Motion exercises: Increase idbuh-pt-ltvveg exercises to achieve full motion, with passive stretching at end ranges ?Strengthening: Begin resisted, internal rotation and backwards extension initia lly with isometric exercises advancing to light therapy bands and then weights. Advance other shoulder strengthening exercises to include the rotator cuff, deltoid, and scapular stabilizers. Advance to functional strengthening, including plyometric exercises and core strengthening. Prescriptions: Naproxen 250 mg take 1 every 12 hours with a meal as needed for moderate pain Oxycodone 5 mg take 1 every 4-6 hours as needed for severe pain You may use [id number]-xhzsuut Tylenol (acetaminophen) as needed for mild pain. These pain medications may be taken all at once or in different combinations as needed. Also, recommend Colace (docusate) as a stool softener as surgery and pain medicine cause constipation. Dressings: Leave dressing in place until follow-up. Keep clean and dry at all times. No showers please. Follow-up: 10-[address] Howe Please call the office during business hours with any questions or concerns. Let us know right away if you develop any redness, drainage, fevers, chest pain, or trouble breathing. Do not drink alcohol or drive for at least 24 hours after anesthesia. Referrals: Jean Paul Howe MD [ [facility] STAFF PHYSICIAN] - Activity:: Shoulder replacement prot Equipment/Supplies:: Shoulder immobilizer Diet:: Diabetic diet DS: Summary Time Spent with Patient providing and/or coordinating discharge services: Less than 30 minutes Status at Discharge Functional status at discharge: independent ambulation Overall status at discharge: patient is progressing back to baseline Mental Status: mental status grossly normal Speech and Movement: speech and movement normal Mood: congruent mood Affect: normal affect Exam Narrative Exam Narrative: Awake and comfortable resting in chair Breathing comfortably on room air. Sling off. Mild early arm ecchymosis. Patient able to demonstrate motor distally about hand. Sensory relatively intact distally in axillary nerve. Dressing clean dry intact. Compartments soft. 2+ radial pulse. Regular rate and rhythm. Tolerates gentle passive range of motion at the shoulder without significant discomfort. Psych Mental Status: mental status grossly normal Speech and Movement: speech and movement normal Mood: congruent mood Affect: normal affect DS: Data Vitals/I&O Vitals and I&O: Vital Signs Temperature 98.8 F 05/08/21 15:09 Temperature Source Tympanic 05/08/21 15:09 Pulse 60 05/08/21 15:09 Pulse Rhythm Regular 05/08/21 15:07 Respiratory Rate 18 05/08/21 15:09 Respiratory Effort Non-Labored 05/08/21 15:07 Respiratory Depth Normal 05/08/21 15:07 Respiratory Pattern Normal 05/08/21 15:07 Blood Pressure 109/62 05/08/21 15:09 Blood Pressure Mean 95 05/08/21 09:24 Pulse Oximetry 93 05/08/21 15:09 Respiratory End-tidal CO2 33 05/08/21 14:28 Oxygen Delivery Method Room Air 05/08/21 15:09 Oxygen Flow Rate 0 05/08/21 15:09 Pain Level 3 05/08/21 15:09 Comment 05/08/21 09:24 Intake & Output 05/07/21 05/08/21 05/08/21 23:59 11:59 23:59 Intake Total 110 / 630 520 / 630 Output Total 100 / 100 Balance 110 / 530 420 / 530 Weight 124 lb 5.451 oz 124 lb 5.451 oz Intake: IV 110 / 610 500 / 610 Oral 20 / 20 Output: Estimated Blood Loss 100 / 100 Other: Emesis Description None PFSH Medical History Abdominal pain Acromioclavicular joint pain Adenomatous colon polyp Allergic rhinitis Anxiety Arthritis Arthritis of right acromioclavicular joint Back pain Cataract Cataract, bilateral Chronic gastritis Cortical cataract of left eye Cortical cataract of right eye Cough CTS (carpal tunnel syndrome) Diabetes mellitus Diabetes mellitus type 2, controlled controlled with diet per pt. Ear pain, left Eczema Esophagitis Fatigue Fracture of right lower extremity Fracture of right lower leg Gait abnormality GERD (gastroesophageal reflux disease) Grief reaction H pylori ulcer Headache Heart murmur Heart murmur, systolic Helicobacter pylori (H. pylori) infection Hip pain HTN (hypertension) Hyperlipidemia Hyperparathyroidism pt. is unsure if she has this condition Low back pain Migraine Nuclear sclerotic cataract of left eye Nuclear sclerotic cataract of right eye Onychomycosis Onychomycosis of toenail Palpitations Peripheral neuropathy Right hip pain Shoulder pain, right Urinary incontinence Vertigo Vitamin B12 deficiency Surgical History Colonoscopy - IV Sedation (01/06/17) H/O esophagogastroduodenoscopy (~02/01/19) 2018-Gastritis History of carpal tunnel release Bilateral History of nasal surgery Right Leg fracture pt reports metal plate in right leg Status post cataract extraction and insertion of intraocular lens of left eye (08/22/18) Status post cataract extraction and insertion of intraocular lens of right eye (08/08/18) Tubal Ligation, Family History Father Colon cancer Maternal Uncle Colon cancer Other Diabetes Social History Smoking/Tobacco Use Status: Never Smoking risk assessment performed?: Yes Alcohol Intake: never Drug use: Never Substance use type: does not use Household members: none Housing: house Number of Children: 2 Pets and animals: Yes Pets and animals: cat(s) and dog(s) Current gender identity: female What is your relationship status?: Panel score (0-1 are the most socially isolated patients): 0 What type of physical activity do you participate in: additional Details: yard work and gardening Do you feel safe at home: Yes Do you feel safe in your relationship?: Yes Additional Social history:
--- NOTE | 2021-05-09 12:59 | NUR.NOTE ---
Nursing Note: I have reviewed the charting of Susan Sanderson LPN and find it acceptable
== END 2021-05-09 12:30 | disposition home or self-care (01) | DRG 483 ==
LOC: PDS 07:36 → MS 15:00
PROVIDERS: Admitting Provider Student in an Organized Health Care Education/Training Program; PCP Family Medicine; Visit Provider Student in an Organized Health Care Education/Training Program
PROC: 0RRJ00Z Replacement of Right Shoulder Joint with Reverse Ball and Socket Synthetic Substitute, Open Approach (ICD-10-PCS; CPT 23472; principal; 2021-05-08 11:00)
DX: M19.011 Primary osteoarthritis, right shoulder (principal); F41.9 Anxiety disorder, unspecified; K21.9 Gastro-esophageal reflux disease without esophagitis; E78.5 Hyperlipidemia, unspecified; M54.50 Low back pain, unspecified; J30.9 Allergic rhinitis, unspecified; K29.50 Unspecified chronic gastritis without bleeding; R26.9 Unspecified abnormalities of gait and mobility; I10 Essential (primary) hypertension; G43.909 Migraine, unspecified, not intractable, without status migrainosus; E21.3 Hyperparathyroidism, unspecified; E11.42 Type 2 diabetes mellitus with diabetic polyneuropathy
CPT/HCPCS: 23472; 76942; 97162; 97166; 97535; 73030; J0690; J1100; J2001; J2370; J2405; J2704

== ENCOUNTER 2021-05-21 14:11 | Outpatient (CLI) | payer MEDICARE, SELFPAY ==
--- NOTE | 2021-05-21 13:45 | DI.RAD_ITS ---
Exam(s) XR SHOULDER RT COMPLETE 2+V EXAM: XR SHOULDER RT COMPLETE 2+V CLINICAL HISTORY: right shoulder f/u TECHNIQUE: COMPARISON: CR XR SHOULDER RT COMPLETE 2+V from 05/08/2021 FINDINGS: Two views were obtained. There is a reverse shoulder prosthesis in position. The components appear well seated. No other significant bony abnormality is seen. IMPRESSION: RADIATION DOSE DELIVERED: Total DLP
== END 2021-05-21 14:12 | disposition home or self-care (01) ==
LOC: DIORS 14:11
PROVIDERS: PCP Family Medicine; Referring Provider Family Medicine; Visit Provider Student in an Organized Health Care Education/Training Program
DX: M19.011 Primary osteoarthritis, right shoulder (principal); Z47.1 Aftercare following joint replacement surgery; Z96.611 Presence of right artificial shoulder joint
CPT/HCPCS: 73030

== ENCOUNTER 2021-07-09 12:03 | Outpatient (CLI) | payer MEDICARE, SELFPAY ==
--- NOTE | 2021-07-09 11:15 | DI.RAD_ITS ---
Exam(s) XR SHOULDER RT COMPLETE 2+V EXAM: XR SHOULDER RT COMPLETE 2+V CLINICAL HISTORY: right shoulder f/u TECHNIQUE: COMPARISON: CR XR SHOULDER RT COMPLETE 2+V from 05/21/2021 FINDINGS: Two views were obtained and show reverse shoulder prosthesis in position. The components appear well seated. No other significant bony abnormality seen. IMPRESSION: RADIATION DOSE DELIVERED: Total DLP
== END 2021-07-09 12:04 | disposition home or self-care (01) ==
LOC: DIORS 12:03
PROVIDERS: PCP Family Medicine; Referring Provider Family Medicine; Visit Provider Student in an Organized Health Care Education/Training Program
DX: Z96.611 Presence of right artificial shoulder joint (principal); Z47.1 Aftercare following joint replacement surgery; M19.011 Primary osteoarthritis, right shoulder
CPT/HCPCS: 73030

== ENCOUNTER 2021-08-26 09:36 | Outpatient (CLI) | payer MEDICARE, SELFPAY ==
--- NOTE | 2021-08-26 09:00 | DI.RAD_ITS ---
Exam(s) XR SHOULDER RT COMPLETE 2+V EXAM: XR SHOULDER RT COMPLETE 2+V CLINICAL HISTORY: POST OP R REVERSE TOTAL SHOULDER TECHNIQUE: COMPARISON: CR XR SHOULDER RT COMPLETE 2+V from 07/09/2021 FINDINGS: Two views were obtained and show a reverse shoulder prosthesis in position. Components appear well s eated. No other significant bony abnormality seen. IMPRESSION: RADIATION DOSE DELIVERED: Total DLP
== END 2021-08-26 09:37 | disposition home or self-care (01) ==
LOC: DIORS 09:36
PROVIDERS: PCP Family Medicine; Referring Provider Family Medicine; Visit Provider Student in an Organized Health Care Education/Training Program
DX: Z96.611 Presence of right artificial shoulder joint (principal); Z47.1 Aftercare following joint replacement surgery
CPT/HCPCS: 99213; 73030

== ENCOUNTER 2021-09-03 18:40 | Outpatient (REF) | payer MEDICARE, SELFPAY ==
[2021-09-05 12:40] LABS: COVID-19 RT-PCR UVMMC Result Negative (Negative)
== END 2021-09-03 18:41 | disposition home or self-care (01) ==
LOC: NCHCN 18:40
PROVIDERS: PCP Family Medicine; Visit Provider Physician Assistant Medical
DX: Z20.822 Contact with and (suspected) exposure to COVID-19 (principal); R09.81 Nasal congestion
CPT/HCPCS: U0003; U0005

== ENCOUNTER 2021-10-15 08:58 | Outpatient (REF) | payer MEDICARE, SELFPAY ==
[2021-10-15 15:49] LABS: HCT 35.2 % (36.0-46.0); HGB 11.6 g/dL (11.2-15.7); MCH 30.7 pg (27.0-33.0); MCV 93.1 fL (80-95); MPV 12.3 fL (8.0-11.0); Platelet Count 211 10^3/uL (130-400); RBC 3.78 10^6/uL (3.93-5.22); RDW-SD 51.6 fL; WBC 4.84 10^3/uL (4.4-10.8)
[2021-10-15 16:06] LABS: ALT 25 U/L (14-59); AST 23 U/L (15-37); Albumin 3.8 g/dL (3.4-5.0); Alkaline Phosphatase 51 U/L (46-116); Anion Gap 11.6 mmol/L (3-11); BUN 9 mg/dL (7-18); Bilirubin, Total 0.6 mg/dL (0.2-1.0); CO2 27.4 mmol/L (21.0-32.0); CREATININE 0.8 mg/dL (0.55-1.02); Calcium 8.6 mg/dL (8.5-10.1); Calculated LDL 116 mg/dL (<100); Chloride 106 mmol/L (98-107); Cholesterol 223 mg/dL (<200); Glucose 126 mg/dL (74-106); HDL Cholesterol 51 mg/dL (40-60); Potassium 3.1 mmol/L (3.5-5.1); Sodium 145 mmol/L (136-145); TSH 1.41 uIU/mL (0.36-3.74); Total Protein 7.5 g/dL (6.4-8.2); Triglyceride 284 mg/dL (<150)
[2021-10-15 17:16] LABS: Hemoglobin A1C 6.8 % (<5.7)
[2021-10-15 18:41] LABS: Creatine Kinase 175 U/L (26-192)
== END 2021-10-15 08:59 | disposition home or self-care (01) ==
LOC: NCHCN 08:58
PROVIDERS: PCP Family Medicine; Visit Provider Family Medicine
DX: E78.5 Hyperlipidemia, unspecified (principal); E11.9 Type 2 diabetes mellitus without complications; R53.83 Other fatigue
CPT/HCPCS: 80053; 80061; 82550; 85027; 83036; 84443

== ENCOUNTER 2021-11-18 16:39 | Outpatient (REF) | payer MEDICARE, SELFPAY ==
[2021-11-20 10:34] LABS: Lyme Ab w Rflx to Lyme Confirm Negative (Negative)
[2021-11-22 01:16] LABS: Anaplasma phagocytophilum Negative (Negative); B. miyamotoi PCR Negative (Negative); Babesia divergens/MO-1 Negative (Negative); Babesia duncani Negative (Negative); Babesia microti Negative (Negative); Ehrlichia chaffeensis Negative (Negative); Ehrlichia ewingii/canis Negative (Negative); Ehrlichia muris eauclairensis Negative (Negative)
== END 2021-11-18 16:40 | disposition home or self-care (01) ==
LOC: NCHCN 16:39
PROVIDERS: PCP Family Medicine; Visit Provider Family Medicine
DX: W57.XXXA Bitten or stung by nonvenomous insect and other nonvenomous arthropods, initial encounter (principal); T14.8XXA Other injury of unspecified body region, initial encounter
CPT/HCPCS: 87798; 86618

== ENCOUNTER 2021-12-03 16:55 | Outpatient (REF) | payer MEDICARE, SELFPAY ==
[2021-12-05 11:06] LABS: COVID-19 RT-PCR UVMMC Result Negative (Negative)
== END 2021-12-03 16:56 | disposition home or self-care (01) ==
LOC: LBN 16:55
PROVIDERS: PCP Family Medicine; Visit Provider Physician Assistant Medical
DX: Z20.822 Contact with and (suspected) exposure to COVID-19 (principal); R05.8 Other specified cough
CPT/HCPCS: U0003; U0005

== ENCOUNTER → 2022-04-23 03:04 | Outpatient (CLI) | payer MEDICARE, SELFPAY ==
--- NOTE | 2022-04-23 | DI.RAD_ITS ---
Exam(s) XR LUMBAR SPINE COMPLETE EXAM: XR LUMBAR SPINE COMPLETE CLINICAL HISTORY: BACK PAIN, M54.9 TECHNIQUE: COMPARISON: No exams were available for comparison FINDINGS: Five views were obtained. There is a moderate left convex lumbar scoliosis. There are severe hypert rophic endplate changes in the lower lumbar spine, mostly on the right, presumably secondary to the s coliosis. Moderate hypertrophic changes of the facet joints also seen throughout the lower lumbar re gion. There is an apparent bilateral L5 spondylolysis with spondylolisthesis of L5 on S1 estimated at 40 pe rcent of vertebral width. There is loss of disc height at L3-4 and L5-S1. No compression fracture. No gross erosive or destructive lesion. 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 RADIATION DOSE DELIVERED: Total DLP
--- NOTE | 2022-04-23 | DI.RAD_ITS ---
Exam(s) XR HIP RT COMPLETE AP PELVIS EXAM: XR HIP RT COMPLETE AP PELVIS CLINICAL HISTORY: RT HIP PAIN, M25.551 TECHNIQUE: COMPARISON: CR XR hip RT complete AP pelvis from 07/15/2018 FINDINGS: Three views were obtained. There are severe degenerative changes of the lower lumbar spine and mild DJD of both SI joints. There is moderate loss of the cartilaginous joint spaces of both hips superiorly. There are prominen t hypertrophic marginal osteophytes of the acetabulum and femoral heads bilaterally. There is irregu larity of cortex of the greater trochanter on the right with soft tissue calcification and/or ossific ation, possible trochanteric bursitis. Incidental note is made of calcified uterine fibroid. IMPRESSION: Moderate DJD both hips. RADIATION DOSE DELIVERED: Total DLP
== END ==
PROVIDERS: PCP Family Medicine; Visit Provider Physician Assistant Medical
DX: M43.17 Spondylolisthesis, lumbosacral region (principal); M51.36 Other intervertebral disc degeneration, lumbar region
CPT/HCPCS: 72110; 73502

== ENCOUNTER 2022-05-19 09:27 | Outpatient (CLI) | payer MEDICARE, SELFPAY ==
--- NOTE | 2022-05-19 09:00 | DI.RAD_ITS ---
Exam(s) XR SHOULDER RT COMPLETE 2+V EXAM: XR SHOULDER RT COMPLETE 2+V CLINICAL HISTORY: RIGHT SHOULDER F/U. TECHNIQUE: 2D digital imaging was performed. COMPARISON: CR XR SHOULDER RT COMPLETE 2+V from 08/26/2021 FINDINGS: 3 views Stable position alignment of the components of the reverse prosthesis. No fracture or loosening evid ent. IMPRESSION: Stable satisfactory appearance. DATA REPOSITORY: RADIATION DOSE DELIVERED:
== END 2022-05-19 09:28 | disposition home or self-care (01) ==
LOC: DIORS 09:28
PROVIDERS: PCP Family Medicine; Referring Provider Family Medicine; Visit Provider Student in an Organized Health Care Education/Training Program
DX: Z96.611 Presence of right artificial shoulder joint (principal); M25.551 Pain in right hip; M54.50 Low back pain, unspecified
CPT/HCPCS: 99213; 73030

== ENCOUNTER → 2022-06-25 09:39 | Outpatient (BNVA) | payer MEDICARE, SELFPAY | PROVIDERS: PCP Family Medicine; Referring Provider Family Medicine; Visit Provider Student in an Organized Health Care Education/Training Program | DX: M16.11 Unilateral primary osteoarthritis, right hip (principal) | CPT/HCPCS: 62323; 72100; 99213; J1040; Q9967 ==

== ENCOUNTER 2022-06-25 10:25 | Outpatient (CLI) | payer MEDICARE, SELFPAY ==
--- NOTE | 2022-06-25 06:00 | DI.RAD_ITS ---
Exam(s) XR PAIN CLINIC LUMBAR SP 2V EXAM: XR PAIN CLINIC LUMBAR SP 2V CLINICAL HISTORY: Dx: Lumbar Radiculopathy. TECHNIQUE: Fluoroscopy was provided for the referring physician for guidance with performing pain cl inic injection procedure. COMPARISON: No exams were available for comparison FINDINGS: Please see procedure note for details. Fluoro time: 24.7 seconds RADIATION DOSE DELIVERED: Ka,r=8.63 mGy
[2022-06-25 10:48] VITALS: BP 127/60; PULSE 75; RESP 20; TEMP 36.8; O2SAT 96
--- NOTE | 2022-06-25 11:41 | PDOC.PAIN ---
Date of service: 06/25/22 Time of Service: 11:51 Pain Clinic Procedure Note Procedure Note Procedure Note: Lumbar Epidural Steroid Injection Procedure Note COMMENTS:She had this procedure in July 2020 and obtained >18 months of relief. The exact pain has returned. Her pre-procedure pain VAS to the low back and legs was 5/10. Dx: Lumbar radiculopathy Kaley Joyce has been referred to the [facility] for lumbar epidural steroid injection. The patient was greeted by the nurse who verified patients name and . Patient was then taken to the fluoroscopy suite. The patient was interviewed and the medial record reviewed. There were no medical, pharmacologic, radiographic, or other structural contraindications to attempting fluoroscopically guided lumbar epidural steroid injection. Risks and expected side effects as well as potential benefits of the procedure were reviewed and voiced concerns expressed. The patient consent form was signed and witnessed. Standard patient time-out procedure was performed. The patient was placed in the prone position on the fluoroscopy table and automated blood pressure cuff and pulse oximeter applied. The skin entry point for entering/approaching the epidural space at L5-S1 and marked. Following thorough chlorhexadine preparation of the skin and draping and 1% lidocaine infiltration of the skin entry point and subcutaneous tissues, a 18 gauge Touhy needle was placed under fluoroscopic guidance and with loss of resistance technique into the epidural space. Needle tip placement and depth were aided and confirmed by fluoroscopy. There was no paresthesia or return of blood or CSF through the needle. 1 cc's of Omnipaque 240 was injected with clear epidural spread confirmed with fluoroscopy. 80mg depomedrol was injected. There was not any unusual discomfort expressed by Kaley Joyce. Patient's vital signs were stable throughout the procedure and were as recorded in nursing records. Follow up plans and appointments were discussed with patient. Post procedure instruction was given as documented in nursing records and having met discharge criteria and was discharged from the [facility]. COMMENTS: If this procedure is helpful, it can be completed up to 3 times per 12 months. She has a Grade 2 anterolisthesis of L5 on S1. Post-procedure pain VAS to the low back and leg is 0/10. Marquis Zuniga DO, MPH [facility]
[2022-06-25 11:43] VITALS: BP 122/70; PULSE 74; RESP 20; O2SAT 96
[2022-06-25] MEDS: Omnipaque 240 MG/ML 50 ML BTL IJ (11:48)
[2022-06-25] MEDS: methylPREDNISolone ACETATE 80 MG/ML VIAL IJ (11:48)
== END 2022-06-25 10:26 | disposition home or self-care (01) ==
LOC: PC 10:25
PROVIDERS: PCP Family Medicine; Visit Provider Preventive Medicine Occupational Medicine
DX: M54.16 Radiculopathy, lumbar region (principal); M54.50 Low back pain, unspecified
CPT/HCPCS: 62323; 72100; J1040; Q9967

== ENCOUNTER 2022-07-09 01:26 | Outpatient (CLI) | payer MEDICARE, SELFPAY ==
--- NOTE | 2022-07-09 14:52 | DI.RAD_ITS ---
Exam(s) RF JOINT INJECTION FLUORO GUID EXAM: RF JOINT INJECTION FLUORO GUID CLINICAL HISTORY: R HIP INJ UNDER FLUORO,primary oa rt hip, m16.11 TECHNIQUE: Fluoroscopy provided. Radiologist not present. CONTRAST MATERIAL: None COMPARISON: No exams were available for comparison FINDINGS: Fluoroscopy was provided for Dr. Gabriel during right hip injection. Please refer to the procedure report for complete details. Cumulative Dose: Ka,r=0.66 mGy IMPRESSION: RADIATION DOSE DELIVERED:
[2022-07-09] MEDS: Omnipaque 300 MG/ML 10 ML BTL IJ (14:54)
[2022-07-09] MEDS: Bupivacaine 0.5% Pres-Free 10 ML VIAL 5 ML IJ (14:54)
[2022-07-09] MEDS: methylPREDNISolone ACETATE 80 MG/ML VIAL IM (14:55)
--- NOTE | 2022-07-10 13:49 | W.PROCNOTE ---
Date of service: 07/09/22 Time of Service: 15:00 Procedure Note Date of procedure: 07/09/22 Procedure: Right Hip Injection with Fluoroscopic Guidance Surgeon/Proceduralist/Physician: Ramses Gabriel Procedure Diagnosis: Right Hip Osteoarthritis Procedure Indications: Kaley has had persistent pain of the RIGHT hip and groin. Noninvasive measures have been tried. To serve as both diagnostic and therapeutic, an injection under fluoroscopy was recommended. I had discussed the risks of the procedure and the patient elected to proceed. Procedure Description: Kaley was greeted in the flouroscopy room. The correct side was identified and the consent was reviewed with the patient and signed. The patient was then placed in the supine position on the fluoroscopy table. The RIGHT hip was then prepped with Chloraprep. The anterolateral injection starting point was identiifed by bony landmarks and fluoroscopy. The skin and soft tissue in the tract of the injection was anesthetized with 1% Lidocaine. A spinal needle was then inserted deep into the hip joint at the level of the lateral femoral neck under fluoroscopic guidance. A small amount of Omnipaque solution was injected to confirm intraarticular placement. Once confirmed, the hip was injected with 5cc of 0.5% Bupivicaine and 80mg of Depo-Medrol. A bandaid was placed on the injection site. The patient tolerated the procedure well.
== END 2022-07-09 01:46 ==
PROVIDERS: PCP Family Medicine; Visit Provider Student in an Organized Health Care Education/Training Program
DX: M16.11 Unilateral primary osteoarthritis, right hip (principal); M25.551 Pain in right hip
CPT/HCPCS: 20610; 20611; 77002; J1040

== ENCOUNTER 2022-07-17 13:14 | Outpatient (REF) | payer MEDICARE, SELFPAY ==
[2022-07-17 15:27] LABS: HGB 12.2 g/dL (11.2-15.7)
[2022-07-17 16:00] LABS: ALT 29 U/L (14-59); AST 24 U/L (15-37); Alkaline Phosphatase 54 U/L (46-116); Anion Gap 9.4 mmol/L (3-11); BUN 26 mg/dL (7-18); Bilirubin, Total 0.3 mg/dL (0.2-1.0); CO2 25.6 mmol/L (21.0-32.0); CREATININE 1.1 mg/dL (0.55-1.02); Chloride 104 mmol/L (98-107); Estimated GFR 51.43 (mL/min/1.73m2); Glucose 145 mg/dL (74-106); Sodium 139 mmol/L (136-145); Total Protein 7.9 g/dL (6.4-8.2)
[2022-07-17 22:58] LABS: Estimated Average Glucose 171 mg/dL; Hemoglobin A1C 7.6 % (<5.7)
== END 2022-07-17 13:15 | disposition home or self-care (01) ==
LOC: NCHCN 13:14
PROVIDERS: PCP Family Medicine; Visit Provider Family Medicine
DX: E11.9 Type 2 diabetes mellitus without complications (principal); E78.5 Hyperlipidemia, unspecified; E53.8 Deficiency of other specified B group vitamins
CPT/HCPCS: 80053; 83036; 84443; 85014; 85018

== ENCOUNTER 2022-07-20 16:11 | Outpatient (REF) | payer MEDICARE, SELFPAY | END 2022-07-20 16:12 | disposition home or self-care (01) | LOC: NCHCN 16:11 | PROVIDERS: PCP Family Medicine; Visit Provider Nurse Practitioner Family | DX: R10.9 Unspecified abdominal pain (principal); R42 Dizziness and giddiness | CPT/HCPCS: 87086 ==

== ENCOUNTER 2022-10-06 16:01 | Outpatient (REF) | payer MEDICARE, SELFPAY ==
[2022-10-06 17:37] LABS: Hemoglobin A1C 7.3 % (<5.7)
[2022-10-06 17:40] LABS: BUN 10 mg/dL (7-18); CREATININE 0.9 mg/dL (0.55-1.02); Calcium 9.1 mg/dL (8.5-10.1); Chloride 105 mmol/L (98-107); Estimated GFR 65.44 (mL/min/1.73m2); Glucose 152 mg/dL (74-106); Potassium 4.2 mmol/L (3.5-5.1); Sodium 144 mmol/L (136-145)
== END 2022-10-06 16:02 | disposition home or self-care (01) ==
LOC: NCHCN 16:01
PROVIDERS: PCP Family Medicine; Visit Provider Family Medicine
DX: E11.9 Type 2 diabetes mellitus without complications (principal)
CPT/HCPCS: 80048; 83036

== ENCOUNTER 2022-10-08 02:34 | Outpatient (CLI) | payer MEDICARE, SELFPAY ==
--- NOTE | 2022-10-08 13:15 | DI.RAD_ITS ---
Exam(s) RF JOINT INJECTION FLUORO GUID EXAM: RF JOINT INJECTION FLUORO GUID CLINICAL HISTORY: pain,djd rt hip, oa, m16.11, fluoro guided injection TECHNIQUE: Fluoroscopy provided. Radiologist not present. CONTRAST MATERIAL: None COMPARISON: No exams were available for comparison FINDINGS: Fluoroscopy was provided for Dr. Gabriel during fluoro guided hip injection.. Please refer to the procedure report for complete details. Cumulative Dose: Ka,r=0.336 mGy IMPRESSION: RADIATION DOSE DELIVERED:
[2022-10-08] MEDS: methylPREDNISolone ACETATE 80 MG/ML VIAL IM (13:38)
[2022-10-08] MEDS: Bupivacaine 0.5% Pres-Free 10 ML VIAL 5 ML IJ (13:40)
--- NOTE | 2022-10-08 13:47 | W.PROCNOTE ---
Date of service: 10/08/22 Time of Service: 13:15 Procedure Note Date of procedure: 10/08/22 Procedure: Right Hip Injection with Fluoroscopic Guidance Surgeon/Proceduralist/Physician: Ramses Gabriel Procedure Diagnosis: Right Hip Osteoarthritis Procedure Indications: Kaley has had persistent pain of the RIGHT hip and groin. Noninvasive measures have been tried. She has had a previous hip injection with good pain relief. Therefore, an injection under fluoroscopy was recommended. I had discussed the risks of the procedure and the patient elected to proceed. Procedure Description: Kaley was greeted in the flouroscopy room. The correct side was identified and the consent was reviewed with the patient and signed. The patient was then placed in the supine position on the fluoroscopy table. The RIGHT hip was then prepped with Chloraprep. The anterolateral injection starting point was identiifed by bony landmarks and fluoroscopy. The skin and soft tissue in the tract of the injection was anesthetized with 1% Lidocaine. A spinal needle was then inserted deep into the hip joint at the level of the lateral femoral neck under fluoroscopic guidance. A small amount of Omnipaque solution was injected to confirm intraarticular placement. Once confirmed, the hip was injected with 5cc of 0.5% Bupivicaine and 80mg of Depo-Medrol. A bandaid was placed on the injection site. The patient tolerated the procedure well and noted improvement in pre-injection pain.
== END 2022-10-08 02:54 ==
LOC: DI 02:34
PROVIDERS: PCP Family Medicine; Visit Provider Student in an Organized Health Care Education/Training Program
DX: M16.11 Unilateral primary osteoarthritis, right hip (principal); M25.551 Pain in right hip
CPT/HCPCS: 20610; 77002; J1040

== ENCOUNTER 2022-12-31 03:14 | Outpatient (CLI) | payer MEDICARE, SELFPAY ==
--- NOTE | 2022-12-31 13:30 | DI.DEXA_ITS ---
Exam(s) XR DEXA BONE DENSITY W/WO YELITZA EXAM: XR DEXA BONE DENSITY W/WO YELITZA CLINICAL HISTORY: NATURAL AGE-RELATED MENOPAUSAL STATE, Z78.0 TECHNIQUE: [email or web address] Horizon C densitometer analysis of left hip, lumbar spine and left forearm. Lat eral survey image of the thoracic and lumbar spine. COMPARISON: DX DEXA BONE DENSITY WITH YELITZA from 09/12/2013 CR XR LUMBAR SPINE COMPLETE from 04/23/2022 FINDINGS: Lateral view of the thoracic and lumbar spine shows no evidence of compression fractures. Degenerati ve changes and scoliosis also noted. Degenerative sclerosis and prominent endplate osteophytes incre ased bone density measurements. Bone mineral density measurements of the lumbar spine correspond to a total T-score of 2.7, in the n ormal range. Not significantly changed from prior. Bone mineral density measurements of the left hip correspond to a total T-score of 0.0. The femora l neck T-score is -1.3, in the osteopenic range. This is not significantly changed from prior.. The left forearm bone mineral density measurements correspond to a T-score of the distal 3rd of -2.4 , unchanged from prior.. IMPRESSION: Osteopenia of the forearm and left hip. Normal bone density of the lumbar spine.
--- NOTE | 2022-12-31 14:20 | DI.US_ITS ---
APPROVED REPORT EXAM: Comprehensive 2D, Doppler, and color-flow Echocardiogram Patient Location: Out-Patient [employer] Hand: Daly Yanes RDCS (AE) Indications: Systolic Heart Murmur Other Information Study Quality: Adequate Conclusion Normal left ventricular wall thickness and chamber size. Ejection fraction is 55%. Wall motion is n ormal Normal right ventricular size and systolic function Both atria are normal in size Aortic valve is calcified and trileaflet. There is no hemodynamically significant aortic stenosis. There is no aortic regurgitation Thickened mitral leaflets with mild regurgitation Normal tricuspid valve, trace regurgitation. Estimated right ventricular systolic pressure is normal at 23 mmHg Wall motion Left Ventricle The left ventricle is normal size. The left ventricular systolic function is normal. The left ventric ular ejection fraction is within the normal range. There is normal left ventricular wall thickness. T here is normal LV segmental wall motion. There is no ventricular septal defect visualized. LVEF is 55 %. Right Ventricle The right ventricle is normal size. The right ventricular systolic function is normal. The RVSP is 23 .0mmHg. Atria The left atrium size is normal. The right atrium size is normal. The interatrial septum is intact wit h no evidence for an atrial septal defect. Aortic Valve Aortic valve is calcified. Aortic valve is trileaflet. No hemodynamically significant valvular aortic stenosis. No aortic regurgitation is present. Mitral Valve Mitral valve leaflets are thickened. No evidence of mitral valve stenosis. mild mitral regurgitation . Tricuspid Valve The tricuspid valve is normal in structure. There is no tricuspid valve stenosis. Trace tricuspid reg urgitation. Pulmonic Valve The pulmonary valve is normal in structure. There is no pulmonic valvular stenosis. Trace pulmonic r egurgitation. Great Vessels The aortic root is normal in size. The ascending aorta is normal in size. Aortic arch is not well vis ualized. IVC is normal in size and collapses >50% with inspiration. Pericardium There is no pericardial effusion. 2D Dimensions IVSD d PLAX 1.03 cm F: 0.6-1.0 LV Vol A2C d MOD 88.7 mL LVPW d PLAX 1.04 cm F: 0.6 - 1.0 LV Vol A4C d MOD 90.8 mL LVID d PLAX 4.96 cm F: 3.8 - 5.2 LA vol/ BSA A2C s A-L 29.6 mL/m2 LVDs 3.65 cm F: 2.2 - 3.5 LA vol/ BSA A4C s A-L 29.2 mL/m2 Ao Root d 2.98 cm F: 2.7 - 3.3 LA Vol/ BSA Biplane s A-L 30.4 mL/m2 RA Area A4C 12.52 cm2 LA Area A4C s MOD 16.79 cm2 RA Vol/ BSA A4C s A-L 16.5 mL/m2 LA Area A2C s MOD 17.50 cm2 Ao Asc Diam d 3.25 cm F: 2.3 - 3.1 LV EF A4C MOD 49.6 % LV EF Teichholz 50.2 % LV EF A2C MOD 49.3 % LVEF (Calle's) 50.86 % F: 54 - 74 LV EF Biplane MOD 50.9 % LV Volume 75.74 mL F: 46 - 106 SV 46.89 mL LV Volume Index 48.55 mL/m2 F: 29 - 61 SV Index 30.15 mL/m2 LV Vol Biplane MOD 92.2 mL FS 25.55 % M-Mode TAPSE 2.09 cm (M/F) >1.7 LV Diastology MV E' medial 0.051 (>0.07 m/s) E/A Ratio 0.7 LV E/e MED 14.75 (<14) MV E Vmax 0.75 (0.4-1.3 m/s) MV E' lateral 0.051 (>0.1 m/s) MV A Vmax 1.15 (0.4-1.3 m/s) LV E/e LAT 14.75 (<14) MV E/A Ratio 0.63 MV E/E' medial 14.80 MV E/E' lateral 14.80 Aortic Valve LVOT Area 3.04 cm2 AoV Area Vmax 1.59 cm2 LVOT Vmax 1.09 m/s AoV Area/ BSA (Vmax) 1.02 cm2/m2 LVOT Mean Durga. 0.70 m/s DAISY Mean Durga. 1.35 cm2 LVOT Peak Grad 4.7 mmHg DAISY Mean Durga. Index 0.87 cm2/m2 LVOT Mean Grad 2.3 mmHg LVOT VTI 0.240 m LVOT Diam s 1.95 cm AoV Vmax 2.07 m/s Velocity Ratio 0.53 AoV Mean Udrga. 1.56 m/s AoV Peak Grad 17.2 mmHg LVOT SV 72.88 mL AoV Mean Grad 10.7 mmHg AoV VTI 0.491 m AoV Area VTI 1.49 cm2 AoV Area/ BSA (VTI) 0.96 cm/m2 Mitral Valve MV DT 275 (160-240 msec) MV PHT 80 msec MV Area PHT 2.76 cm2 MV VTI 0.394 m MV Area VTI 1.85 (4.0-6.0 cm2) Pulmonary Valve PV Vmax 1.02 (0.5-1.5 m/s) RVOT Peak Gr. 2.32 mmHg PV Peak Grad 4.2 mmHg RVOT Mean Gr. 1.20 mmHg PV Mean Grad 2.3 mmHg RVOT VTI 0.171 m PV VTI 0.210 m RVOT Vmax 0.76 m/s Tricuspid Valve TR Peak Grad 20.0 mmHg TR Vmax 2.24 m/s RA Pressure 3.00 mmHg RVSP (TR) 23.0 mmHg
--- NOTE | 2022-12-31 15:30 | DI.MAMMO_ITS ---
Exam(s) MAMMO SCREENING EXAM: MAMMO SCREENING CLINICAL HISTORY: SCREENING, Z12.31 TECHNIQUE: Mammograms were interpreted according to the usual protocol including computer analysis w picsell CAD system, tomosynthesis and C-view imaging. COMPARISON: 2013 through 2018 FINDINGS: The breasts are composed of scattered fibroglandular densities, Breast Density category B. No suspicious masses or suspicious microcalcifications are seen. Biopsy marker clip again noted in u pper outer quadrant of the left breast. No skin thickening or abnormal axillary lymph nodes are seen. There has been no significant change from prior exams. IMPRESSION: BI-RADS Category 1, Negative mammogram Yearly screening mammography is recommended. Breast Density - Category B, scattered fibroglandular densities. A negative radiographic report should not delay biopsy if a dominant or clinically suspicious mass is present. Up to ten percent of cancers are not identified on mammography. A negative report may reinforce clinical impression. Adenosis and dense breasts may obscure an underlying neoplasm. False positive reports average 6 to 10%. Patient will receive a letter notifying them of these results.
== END 2022-12-31 03:34 ==
PROVIDERS: PCP Family Medicine; Visit Provider Family Medicine
DX: Z78.0 Asymptomatic menopausal state (principal); R01.1 Cardiac murmur, unspecified; Z12.31 Encounter for screening mammogram for malignant neoplasm of breast
CPT/HCPCS: 77063; 77067; 77080; 93306

== ENCOUNTER → 2023-02-04 13:45 | Outpatient (BNVA) | payer MEDICARE, SELFPAY | PROVIDERS: PCP Family Medicine; Referring Provider Family Medicine; Visit Provider Nurse Practitioner Adult Health | CPT/HCPCS: 99204 ==

== ENCOUNTER 2023-02-04 15:35 | Outpatient (CLI) | payer MEDICARE, SELFPAY ==
[2023-02-04 16:50] LABS: Vitamin B12 > 2000 pg/mL (193-986)
== END 2023-02-04 15:36 | disposition home or self-care (01) ==
LOC: LBO 15:36
PROVIDERS: PCP Family Medicine; Visit Provider Nurse Practitioner Adult Health
DX: R41.89 Other symptoms and signs involving cognitive functions and awareness (principal)
CPT/HCPCS: 36415; 99215; 82607

== ENCOUNTER → 2023-03-18 14:56 | Outpatient (BNVA) | payer MEDICARE, SELFPAY | PROVIDERS: PCP Family Medicine; Referring Provider Family Medicine; Visit Provider Nurse Practitioner Adult Health | DX: G43.009 Migraine without aura, not intractable, without status migrainosus (principal) | CPT/HCPCS: 99203; 99214 ==

== ENCOUNTER → 2023-04-28 02:49 | Outpatient (CLI) | payer MEDICARE, SELFPAY ==
--- NOTE | 2023-04-28 | DI.RAD_ITS ---
Exam(s) XR SHOULDER LT COMPLETE 2+V EXAM: XR SHOULDER LT COMPLETE 2+V CLINICAL HISTORY: LT SHOULDER PAIN, M25.512. TECHNIQUE: 2D digital imaging was performed. Three views. COMPARISON: CR XR SHOULDER RT COMPLETE 2+V from 05/19/2022 FINDINGS: BONES: No acute fracture is present. No bony destructive lesion is seen. JOINTS: No dislocation present. Severe degenerative changes of the glenohumeral joint, with a bone-o n-bone appearance. Periarticular spurring. Spurring also noted at greater and lesser tuberosities. Spurring at AC joint. SOFT TISSUE: Normal. IMPRESSION: Severe degenerative changes of the glenohumeral joint. DATA REPOSITORY: RADIATION DOSE DELIVERED:
== END ==
PROVIDERS: PCP Family Medicine; Visit Provider Nurse Practitioner Family
DX: M19.012 Primary osteoarthritis, left shoulder (principal)
CPT/HCPCS: 73030

== ENCOUNTER → 2023-06-03 14:37 | Outpatient (BNVA) | payer MEDICARE, SELFPAY | PROVIDERS: PCP Family Medicine; Referring Provider Family Medicine | DX: M16.11 Unilateral primary osteoarthritis, right hip (principal) | CPT/HCPCS: 20611; J1040 ==

== ENCOUNTER → 2023-06-08 13:14 | Outpatient (BNVA) | payer MEDICARE, SELFPAY | PROVIDERS: PCP Family Medicine; Referring Provider Family Medicine; Visit Provider Student in an Organized Health Care Education/Training Program | DX: M19.012 Primary osteoarthritis, left shoulder (principal) | CPT/HCPCS: 99213 ==

== ENCOUNTER 2023-07-12 09:55 | Emergency (ER) | payer MEDICARE, SELFPAY ==
--- NOTE | 2023-07-12 09:45 | RT.EKG_ITS ---
APPROVED REPORT Exam: Resting ECG Reason for Exam: Dizzy Patient Location: E HR:67 bpm ECG Measurements Heart Rate 67 AXIS NJ 161 P 46 QRSd 86 QRS -8 QT 426 T 48 QTc 450 Conclusion Sinus rhythm...normal P axis, V-rate 60- 99 Consider left ventricular hypertrophy...(R aVL+S V3) >2.20mV
[2023-07-12 10:05] VITALS: BP 141/73; PULSE 68; RESP 18; TEMP 36.8; O2SAT 92
--- NOTE | 2023-07-12 11:00 | DI.CT_ITS ---
Exam(s) CT HEAD WO EXAM: CT HEAD WO CLINICAL HISTORY: dizzy, subtle left facial weakness. TECHNIQUE: Imaging Protocol: Axial computed tomography images with coronal and sagittal reformatted images were created and reviewed COMPARISON: MR MRA HEAD WO CONTRAST from 11/13/2021 FINDINGS: Ventricles and Extra axial spaces: Normal in size and morphology for the patient's age. Hemorrhage: None. Cerebral parenchyma: There are areas of decreased attenuation in the white matter consistent with sma ll vessel ischemic disease. No mass effect is identified. Midline shift: None. Brainstem/Cerebellum: Normal. Calvarium: Normal. Visualized Paranasal sinuses/Mastoids: Clear. Soft Tissues: Unremarkable. IMPRESSION: 1. No acute intracranial process. 2. Findings were discussed with the emergency department at 11:49 a.m. on 07/12/2023. RADIATION DOSE DELIVERED: 662.49mGy.cm Total DLP DATA REPOSITORY: All CT scans at this facility are submitted to the National Radiology Data Registry (NRDR) Dose Index Registry (DIR) with the [employer] ([employer]). RADIATION OPTIMIZATION: All CT scans at this facility use at least one of these dose optimization te chniques: automated exposure control; mA and/or kV adjustment per patient size (includes targeted exa ms where dose is matched to clinical indication); or iterative reconstruction.
--- NOTE | 2023-07-12 11:15 | DI.MRI_ITS ---
Exam(s) MR BRAIN WO EXAM: MR BRAIN WO CLINICAL HISTORY: dizzy, left facial weakness TECHNIQUE: Multiplanar multisequence MRI of the brain was performed. COMPARISON: MR MRA HEAD WO CONTRAST from 11/13/[address] HEAD WO from 07/12/2023 FINDINGS: VENTRICLES AND EXTRA AXIAL SPACES: Normal in size and morphology for the patient's age. MIDLINE SHIFT: None. CEREBRAL PARENCHYMA: No focus of restricted diffusion to suggest acute infarct. No space-occupying le kenneth identified. There are multiple areas of hyperintense signal seen in the white matter on the FLAI R and T2 weighted images consistent with small vessel ischemic disease. HEMORRHAGE: None. BRAINSTEM/CEREBELLUM: Normal. CALVARIUM: Normal. VISUALIZED PARANASAL SINUSES/MASTOIDS:Clear. GAMBELL OF GRIMM: Normal flow void. PITUITARY GLAND: Unremarkable. OTHER FINDINGS: None. IMPRESSION: 1. 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 2. No evidence of an acute infarct. 3. Findings were discussed with the emergency department at 12:11 p.m. on 07/12/2023. DATA REPOSITORY:
[2023-07-12 11:24] LABS: Abs Immature Grans 0.02 10^3/uL (0.0-0.06); Absolute Basophil Count 0.07 10^3/uL (0.0-0.2); Absolute Eosinophil Count 0.17 10^3/uL (0.0-0.7); Absolute Lymphocyte Count 1.96 10^3/uL (1.2-3.4); Absolute Monocyte Count 0.87 10^3/uL (0.1-0.8); Absolute Neutrophil Count 4.92 10^3/uL (1.2-6.7); Basophils % 0.9; Eosinophils % 2.1; HGB 12.8 g/dL (11.2-15.7); Immature Grans % 0.2; Lymphocytes % 24.5; MCH 29.6 pg (27.0-33.0); MCHC 32.8 % (32.0-36.0); MCV 90 fL (80-95); MPV 11.3 fL (8.0-11.0); Monocytes % 10.9; Neutrophils % 61.4; Platelet Count 204 10^3/uL (130-400); RBC 4.32 10^6/uL (3.93-5.22); RDW-SD 46.8 fL; WBC 8.01 10^3/uL (4.4-10.8)
[2023-07-12 11:48] LABS: ALT 39 U/L (14-59); AST 31 U/L (15-37); Albumin 3.9 g/dL (3.4-5.0); Alkaline Phosphatase 51 U/L (46-116); Anion Gap 9.1 mmol/L (3-11); BUN 15 mg/dL (7-18); Bilirubin, Total 0.5 mg/dL (0.2-1.0); CO2 28.9 mmol/L (21.0-32.0); Calcium 9.7 mg/dL (8.5-10.1); Chloride 103 mmol/L (98-107); Estimated GFR 57.31 (mL/min/1.73m2); Glucose 133 mg/dL (74-106); Magnesium 1.8 mg/dL (1.8-2.4); Sodium 141 mmol/L (136-145); TSH (W/Ref FT4) 1.74 uIU/mL (0.36-3.74); Troponin I < 50 ng/L (<or=60)
--- NOTE | 2023-07-12 12:17 | W.ED.GENAD ---
HPI General Date/Time Provider Initiated Documentation: 07/12/23 10:15. Limitations to Documentation: no limitations. Information obtained by: patient. HPI Narrative: 77-year-old female with history of multimedical problems occluding vertigo here with intermittent dizziness over the past couple days. Symptoms are moderate. Symptoms worse with movement. No associated headache. Related Data Home Medications Medication Instructions Recorded Confirmed cetirizine 10 mg chewable tablet 10 mg PO DAILY 03/02/13 07/12/23 cholecalciferol (vitamin D3) 25 2,000 unit PO DAILY 03/02/13 07/12/23 mcg (1,000 unit) tablet Senokot 8.6 mg tablet (sennosides) 2 tab-cap PO HS 11/02/17 07/12/23 pyridoxine (vitamin B6) 100 mg 100 mg PO HS 11/15/17 07/12/23 tablet (Vitamin B-6) acetaminophen 500 mg tablet 1,000 mg PO TID 06/11/20 07/12/23 gabapentin 100 mg capsule 400 mg PO HS 06/11/20 07/12/23 ondansetron 4 mg oral soluble film 4 mg PO Q6H PRN 06/11/20 07/12/23 simvastatin 40 mg tablet 40 mg PO DAILY 02/11/21 07/12/23 ascorbate calcium (vitamin C) 500 500 mg PO DAILY 08/07/21 07/12/23 mg capsule cod liver oil 1 cap PO DAILY 08/07/21 07/12/23 diclofenac sodium 1 % topical gel 2 g topical BID PRN 08/07/21 07/12/23 meclizine 25 mg tablet 25 mg PO DAILY PRN 08/07/21 07/12/23 melatonin 10 mg capsule 10 mg PO HS PRN 08/07/21 07/12/23 trazodone 50 mg tablet 50 mg PO QHS PRN 08/07/21 07/12/23 omeprazole 20 mg capsule,delayed 40 mg PO DAILY 08/26/21 07/12/23 release potassium chloride 10 mEq 10 meq PO DAILY 04/28/22 07/12/23 tablet,extended release omega-3 fatty acids 1,000 mg PO DAILY 06/12/22 07/12/23 vitamin E (dl, acetate) 45 mg (100 45 mg PO DAILY 12/09/22 01/08/24 unit) capsule meloxicam 7.5 mg tablet 7.5 mg PO DAILY 06/25/22 07/12/23 lisinopril 2.5 mg tablet 2.5 mg PO DAILY 12/24/22 07/12/23 polyethylene glycol 3350 17 17 g PO DAILY PRN 12/24/22 07/12/23 gram/dose oral powder (Miralax) prochlorperazine maleate 5 mg See Rx Instructions PO TID PRN 02/04/23 07/12/23 tablet headache and/or nausea #30 tabs magnesium oxide 400 mg PO DAILY 03/18/23 07/12/23 topiramate 25 mg tablet 25 mg PO DAILY 06/08/23 07/12/23 cyanocobalamin (vitamin B-12) 100 mcg subcut Q2W 07/14/23 1,000 mcg/mL injection solution memantine 5 mg tablet 5 mg PO BID 07/14/23 Previous Rx's Medication Instructions Recorded prochlorperazine maleate 5 mg See Rx Instructions PO TID PRN 02/04/23 tablet headache and/or nausea #30 tabs Allergies Allergy/AdvReac Type Severity Reaction Status Date / Time adhesive Allergy Intermediate itchy rash Verified 07/12/23 10:09 niacin Allergy Intermediate Skin Rash Verified 07/12/23 10:09 Sulfa (Sulfonamide Allergy Intermediate Nausea Verified 07/14/23 16:22 Antibiotics) codeine AdvReac Intermediate VOMITING Verified 07/12/23 10:09 morphine AdvReac Mild vomiting Verified 07/12/23 10:09 General Stated Complaint: Dizzy/Sync BETO: 3 Review of Systems All systems reviewed & are unremarkable except as noted in HPI and below Cardiovascular Cardiovascular: Denies chest pain Exam Const General: cooperative and no acute distress [facility] Mouth: moist mucous membranes Eyes Conjunctivae: normal conjunctivae Sclera: normal sclerae Neck Neck: trachea midline and supple Resp Auscultation: clear to auscultation bilaterally, no rales, no rhonchi and no wheezes Cardio Rate: regular rate and not tachycardic Rhythm: regular rhythm GI Palpation: soft, not firm, no guarding, no masses, not rigid and nontender Skin General skin exam: no rashes or lesions noted Neuro General: patient alert, patient awake and tone normal Cognition: normal cognition Speech: speech normal Motor: other (mild left facial weakness ) Sensory Exam: no sensory deficits noted Coordination: [id number] test normal Extrem General: no calf tenderness and no edema Psych Appearance: grossly normal Mental Status: mental status grossly normal Speech and Movement: speech and movement normal Course Vital Signs Vital signs: Vital Signs Temperature 36.8 C 07/12/23 10:05 Pulse 68 07/12/23 10:05 Respiratory Rate 18 07/12/23 10:05 Blood Pressure 141/73 H 07/12/23 10:05 Pulse Oximetry 92 07/12/23 10:05 Temperature 36.8 C 07/12/23 10:05 Temperature Source Oral 07/12/23 10:05 Pulse 68 07/12/23 10:05 Respiratory Rate 18 07/12/23 10:05 Respiratory Effort Normal, Non-Labored 07/12/23 10:17 Blood Pressure 141/73 H 07/12/23 10:05 Blood Pressure Position Sitting 07/12/23 10:05 Pulse Oximetry 92 07/12/23 10:05 Oxygen Delivery Method Room Air 07/12/23 10:05 Oxygen Flow Rate 0 07/12/23 10:05 Lab/Test Results Lab/Test Results: Laboratory Tests Range/Units 07/12/23 11:17 WBC (4.4-10.8) 10^3/uL 8.01 RBC (3.93-5.22) 10^6/uL 4.32 Hgb (11.2-15.7) g/dL 12.8 Hct (36.0-46.0) % 39.0 MCV (80-95) fL 90 MCH (27.0-33.0) pg 29.6 MCHC (32.0-36.0) % 32.8 RDW (11.7-14.6) % 14.0 Plt Count (130-400) 10^3/uL 204 MPV (8.0-11.0) fL 11.3 H Immature Gran % 0.2 Neutrophils % 61.4 Lymphocytes % 24.5 Monocytes % 10.9 Eosinophils % 2.1 Basophils % 0.9 Nucleated RBC % (0.0-0.3) % 0.0 Absolute Neutrophils (1.2-6.7) 10^3/uL 4.92 Absolute Lymphocytes (1.2-3.4) 10^3/uL 1.96 Absolute Monocytes (0.1-0.8) 10^3/uL 0.87 H Absolute Eosinophils (0.0-0.7) 10^3/uL 0.17 Absolute Basophils (0.0-0.2) 10^3/uL 0.07 Sodium (136-145) mmol/L 141 Potassium (3.5-5.1) mmol/L 4.0 Chloride (98-107) mmol/L 103 Carbon Dioxide (21.0-32.0) mmol/L 28.9 Anion Gap (3-11) mmol/L 9.1 BUN (7-18) mg/dL 15 Creatinine (0.55-1.02) mg/dL 1.0 Est GFR (CKD-EPI 2020) (mL/min/1.73m2) 57.31 Glucose (74-106) mg/dL 133 H Calcium (8.5-10.1) mg/dL 9.7 Magnesium (1.8-2.4) mg/dL 1.8 Total Bilirubin (0.2-1.0) mg/dL 0.5 AST (15-37) U/L 31 ALT (14-59) U/L 39 Alkaline Phosphatase (46-116) U/L 51 Troponin I (<or=60) ng/L < 50 Total Protein (6.4-8.2) g/dL 8.0 Albumin (3.4-5.0) g/dL 3.9 TSH (0.36-3.74) uIU/mL 1.74 Medical Decision Making 77-year-old female with history of multimedical problems occluding vertigo here with intermittent dizziness over the past couple days. Subtle left-sided facial weakness noted on exam. No other focal deficits. Concern for vertigo versus CVA. Patient has not been eating well. Consider significant electrolyte abnormality. EKG was reviewed and interpreted by me: Please report, sinus rhythm 67 bpm, nondiagnostic. CT the brain was interpreted by radiology as negative. MRI of the brain was interpreted by radiology as negative. Labs reviewed and no significant abnormalities. No leukocytosis. No anemia. Normal LFTs. Normal electrolytes. Troponin negative. Patient received IV fluid bolus 500 mL. She was noted to be hemodynamically stable. Plan for discharge with close outpatient follow-up with PCP. Usual customary discharge instructions reviewed with the patient and her daughter. Lab Data Lab results reviewed: Yes I reviewed the patient's lab results. Labs: Laboratory Tests Range/Units 07/12/23 07/12/23 11:17 14:01 WBC (4.4-10.8) 10^3/uL 8.01 RBC (3.93-5.22) 10^6/uL 4.32 Hgb (11.2-15.7) g/dL 12.8 Hct (36.0-46.0) % 39.0 MCV (80-95) fL 90 MCH (27.0-33.0) pg 29.6 MCHC (32.0-36.0) % 32.8 RDW (11.7-14.6) % 14.0 Plt Count (130-400) 10^3/uL 204 MPV (8.0-11.0) fL 11.3 H Immature Gran % 0.2 Neutrophils % 61.4 Lymphocytes % 24.5 Monocytes % 10.9 Eosinophils % 2.1 Basophils % 0.9 Nucleated RBC % (0.0-0.3) % 0.0 Absolute Neutrophils (1.2-6.7) 10^3/uL 4.92 Absolute Lymphocytes (1.2-3.4) 10^3/uL 1.96 Absolute Monocytes (0.1-0.8) 10^3/uL 0.87 H Absolute Eosinophils (0.0-0.7) 10^3/uL 0.17 Absolute Basophils (0.0-0.2) 10^3/uL 0.07 Sodium (136-145) mmol/L 141 Potassium (3.5-5.1) mmol/L 4.0 Chloride (98-107) mmol/L 103 Carbon Dioxide (21.0-32.0) mmol/L 28.9 Anion Gap (3-11) mmol/L 9.1 BUN (7-18) mg/dL 15 Creatinine (0.55-1.02) mg/dL 1.0 Est GFR (CKD-EPI 2020) (mL/min/1.73m2) 57.31 Glucose (74-106) mg/dL 133 H Calcium (8.5-10.1) mg/dL 9.7 Magnesium (1.8-2.4) mg/dL 1.8 Total Bilirubin (0.2-1.0) mg/dL 0.5 AST (15-37) U/L 31 ALT (14-59) U/L 39 Alkaline Phosphatase (46-116) U/L 51 Troponin I (<or=60) ng/L < 50 Cancelled Total Protein (6.4-8.2) g/dL 8.0 Albumin (3.4-5.0) g/dL 3.9 TSH (0.36-3.74) uIU/mL 1.74 Quality:SDOH Health Related Social Needs: Health related social needs risk of homeless PFSH All Active Problems (Updated 07/12/23 @ 13:41 by Lamin Duron MD) Cardiac murmur (Acute) Frequent PVCs (Acute) Dizziness (Acute) Arthritis of left glenohumeral joint (Acute) Migraine headache without aura (Acute) Cognitive changes (Acute) Degenerative joint disease of right hip (Acute) Intra-articular injection with imagin06/03/2023; 10/08/2022; 07/10/2022 Medical History Acute upper respiratory infection Adenomatous colon polyp Allergic rhinitis Anxiety Arthritis of right acromioclavicular joint Arthritis of right glenohumeral joint Back pain Callus of toe Carpal tunnel syndrome of left wrist Carpal tunnel syndrome of right wrist Cataract, bilateral Chronic gastritis Chronic headache Cold intolerance Constipation Cortical cataract of left eye Cortical cataract of right eye Cough Cystocele with prolapse Degenerative scoliosis in adult patient Degenerative spondylolisthesis Diabetes mellitus type 2, controlled controlled with diet per pt. Ear pain, left Eczema Esophagitis Family history of aneurysm of blood vessel of brain Female bladder prolapse Fracture of lower leg Fracture of right lower extremity Gait abnormality GERD (gastroesophageal reflux disease) Heart murmur, systolic Helicobacter pylori (H. pylori) infection Hip pain History of short term memory loss HTN (hypertension) Hyperlipidemia Hyperparathyroidism pt. is unsure if she has this condition Insect bite Left flank pain Migraine Nuclear sclerotic cataract of left eye Nuclear sclerotic cataract of right eye Onychomycosis of toenail Palpitations Peripheral neuropathy Right hip pain Shoulder pain, acute Sinus congestion Tubular adenoma of colon (01/06/17) Type 2 diabetes mellitus Urinary incontinence Vertigo Vitamin B12 deficiency Vitamin B12 deficiency (non anemic) Surgical History Colonoscopy - IV Sedation (01/06/17) H/O esophagogastroduodenoscopy (~02/01/19) 2018-Gastritis History of carpal tunnel release Bilateral History of nasal surgery Right Leg fracture pt reports metal plate in right leg Status post cataract extraction and insertion of intraocular lens of left eye (08/22/18) Status post cataract extraction and insertion of intraocular lens of right eye (08/08/18) 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) Tubal Ligation, Family History Father Colon cancer Maternal Uncle Colon cancer Mother Dementia Stroke Other Diabetes Social History (Updated 07/15/23 @ 10:37 by Hilary Chaudhry RN) Smoking/Tobacco Use Status: Never Smoking risk assessment performed?: Yes Alcohol Intake: never Drug use: Never Substance use type: does not use Household members: children and none Housing: house Number of Children: 2 Pets and animals: Yes Pets and animals: cat(s) and dog(s) Current gender identity: female What is your relationship status?: Panel score (0-1 are the most socially isolated patients): 0 What type of physical activity do you participate in: additional Details: yard work and gardening Do you feel safe at home: Yes Do you feel safe in your relationship?: Yes Additional Social history: Female Reproductive History Menstrual Age of Menarche: 8 Duration of menses: 3-5 days Menopause type: natural History History 3 Para Hx # Term Pregnancies Multiple births Hx # Pregnancies Ectopic pregnancies AB induced Hx Number of Living Children 2 AB spontaneous 1 Past Pregnancies Del. Date GA/Weeks # Preg Succ Route Wgt Sex Labor Lgth Anesthesia Location Prov Complic 12/31/1962 40 No vaginal 3203.496 g Male 05/11/1966 40 No vaginal 3203.496 g Female Delivery Date: 12/31/1962 Last Updated by: Carla Barcenas pt reports no complications Delivery Date: 05/11/1966 Last Updated by: Carla Barcenas pt reports no complications Discharge Plan Disposition Patient Disposition: Home Condition: Stable Discharge Details Clinical Impression: Dizziness, Frequent PVCs, Cardiac murmur Primary Care Provider: Zaynab Thacker V ED Provider: Lamin Duron Home Meds and New Rx's Prescriptions: Continued simvastatin 40 mg tablet 40 mg PO DAILY trazodone 50 mg tablet 50 mg PO QHS PRN diclofenac sodium 1 % gel 2 g topical BID PRN Rx Instructions: apply to single elbow, wrist or hand; for hand includes palm/fingers/back of hand ascorbate calcium (vitamin C) 500 mg capsule 500 mg PO DAILY melatonin 10 mg capsule 10 mg PO HS PRN cod liver oil Capsule 1 cap PO DAILY meclizine 25 mg tablet 25 mg PO DAILY PRN topiramate 25 mg tablet 25 mg PO DAILY gabapentin 100 mg Capsule 400 mg PO HS ondansetron 4 mg Film 4 mg PO Q6H PRN acetaminophen 500 mg tablet 1,000 mg PO TID omeprazole 20 mg capsule,delayed release(DR/EC) 40 mg PO DAILY meloxicam 7.5 mg tablet 7.5 mg PO DAILY prochlorperazine maleate 5 mg tablet See Rx Instructions PO TID PRN (Reason: headache and/or nausea) Qty: 30 3RF Rx Instructions: 5-10 mg orally three times a day PRN; magnesium oxide 400 mg magnesium capsule 400 mg PO DAILY sennosides [Senokot] 8.6 MG tablet 2 tab-cap PO HS potassium chloride 10 mEq tablet extended release 10 meq PO DAILY omega-3 fatty acids Capsule 1,000 mg PO DAILY vitamin E (dl, acetate) 45 mg (100 unit) Capsule 45 mg PO DAILY polyethylene glycol 3350 [Miralax] 17 gram/dose powder 17 g PO DAILY PRN lisinopril 2.5 mg tablet 2.5 mg PO DAILY cetirizine 10 MG tablet,chewable 10 mg PO DAILY cholecalciferol (vitamin D3) 1,000 UNITS tablet 2,000 unit PO DAILY pyridoxine (vitamin B6) [Vitamin B-6] 100 MG tablet 100 mg PO HS Discontinued fluticasone propionate [Flonase Allergy Relief] 50 mcg/actuation spray,suspension 1 spray intranasal DAILY Hold Instructions: Pt Stopped/Never Started Rx Instructions: administer into each nostril No Action cyanocobalamin (vitamin B-12) 1,000 mcg/mL solution 100 mcg subcut Q2W memantine 5 mg tablet 5 mg PO BID Patient Comments: 07/14/23 per PCP notes [facility] Discharge Instructions Instructions: Dizziness (ED) Additional Instructions: Please follow-up with your primary care physician. You should have outpatient cardiac monitoring performed. Please discuss this with your primary care physician. Return to the ER immediately for any worsening or new concerning symptoms. Referrals: Zaynab Thacker MD [Primary Care Provider] - Discharge Data Discharge Date/Time-TO BE ENTERED AT DEPARTURE: 07/12/23 14:01
[2023-07-12] MEDS: Lactated Ringers 500 ML 1000 ML IV (12:20)
[2023-07-12 13:28] VITALS: BP 134/45; PULSE 75; RESP 12; TEMP 36.3; O2SAT 97
== END 2023-07-12 14:01 | disposition home or self-care (01) ==
PROVIDERS: Emergency Provider Student in an Organized Health Care Education/Training Program; PCP Family Medicine
DX: R42 Dizziness and giddiness (principal); E11.9 Type 2 diabetes mellitus without complications; I10 Essential (primary) hypertension; R94.31 Abnormal electrocardiogram [ECG] [EKG]
CPT/HCPCS: 36415; 80053; 93005; 99284; 70450; 70551; 83735; 84443; 84484; 85025; 93010

== ENCOUNTER 2023-07-23 10:32 | Outpatient (REF) | payer MEDICARE, SELFPAY ==
[2023-07-23 15:23] LABS: Abs Immature Grans 0.08 10^3/uL (0.0-0.06); Absolute Basophil Count 0.07 10^3/uL (0.0-0.2); Absolute Eosinophil Count 0.21 10^3/uL (0.0-0.7); Absolute Lymphocyte Count 1.48 10^3/uL (1.2-3.4); Absolute Monocyte Count 0.95 10^3/uL (0.1-0.8); Basophils % 0.8; ESR 30 mm/hr (0-30); Eosinophils % 2.5; HCT 36.1 % (36.0-46.0); HGB 12.3 g/dL (11.2-15.7); Immature Grans % 0.9; Lymphocytes % 17.4; MCH 30.7 pg (27.0-33.0); MCHC 34.1 % (32.0-36.0); MCV 90 fL (80-95); MPV 11.3 fL (8.0-11.0); Monocytes % 11.2; Neutrophils % 67.2; Platelet Count 237 10^3/uL (130-400); RBC 4.01 10^6/uL (3.93-5.22); RDW 13.7 % (11.7-14.6); RDW-SD 45.1 fL; WBC 8.49 10^3/uL (4.4-10.8)
[2023-07-23 15:35] LABS: C-Reactive Protein 7.14 mg/dL (0.0-0.3)
[2023-07-23 15:36] LABS: Mono Screening Negative (Negative)
== END 2023-07-23 10:33 | disposition home or self-care (01) ==
LOC: NCHCN 10:32
PROVIDERS: PCP Family Medicine; Visit Provider Family Medicine
DX: R53.83 Other fatigue (principal); J06.9 Acute upper respiratory infection, unspecified; R79.82 Elevated C-reactive protein (CRP); R82.998 Other abnormal findings in urine
CPT/HCPCS: 85652; 85025; 86140; 86308; 87086

== ENCOUNTER 2023-08-05 13:54 | Outpatient (CLI) | payer MEDICARE, SELFPAY | END 2023-08-05 13:55 | disposition home or self-care (01) | PROVIDERS: PCP Family Medicine; Visit Provider Family Medicine | DX: R42 Dizziness and giddiness (principal) | CPT/HCPCS: 93246 ==

== ENCOUNTER 2023-08-31 07:27 | Outpatient (CLI) | payer MEDICARE, SELFPAY ==
--- NOTE | 2023-08-31 08:31 | W.CARDEVENT ---
Date of service: 08/31/23 Time of Service: 08:31 Cardiac Event Recorder Referring Provider:: Zaynab Thacker Indications:: Dizziness Cardiac Event Note: This is a cardiac event monitor ordered for dizziness. Patient was monitored for 13 days and 16 hours Predominant rhythm was sinus with an average heart rate of 79. Minimum was 54, maximum 130. There were moderately frequent premature beats which appeared to be atrial premature beats. Some of these were aberrantly conducted and erroneously reported by the computer as ventricular. Episodes labeled ventricular tachycardia were SVT with aberrancy. The longest was 5 beats in duration. Overall there appeared to be rare ventricular ectopic beats, rare couplets There was no atrial fibrillation, no high-grade AV block, no pauses greater than 3 seconds Isolated patient symptom correlated to a premature ventricular contraction
== END 2023-08-31 07:28 | disposition home or self-care (01) ==
LOC: CARDOPNVT 07:27
PROVIDERS: PCP Family Medicine; Visit Provider Internal Medicine Cardiovascular Disease
DX: R42 Dizziness and giddiness (principal); I47.10 Supraventricular tachycardia, unspecified
CPT/HCPCS: 93248

== ENCOUNTER 2023-09-21 07:49 | Outpatient (CLI) | payer MEDICARE, SELFPAY ==
--- NOTE | 2023-09-21 07:45 | RT.EKG_ITS ---
APPROVED REPORT Exam: Resting ECG Reason for Exam: palpitations Patient Location: O HR:93 bpm ECG Measurements Heart Rate 93 AXIS NH 165 P 52 QRSd 85 QRS 0 QT 382 T 54 QTc 476 Conclusion Sinus rhythm...normal P axis, V-rate 50- 99 Ventricular bigeminy...bigeminy string>4 w/ V complexes Probable left atrial enlargement...P >50mS, <-0.10mV V1
== END 2023-09-21 07:50 | disposition home or self-care (01) ==
LOC: DI.CARD 07:50
PROVIDERS: PCP Family Medicine; Visit Provider Internal Medicine Cardiovascular Disease
DX: R00.2 Palpitations (principal)
CPT/HCPCS: 93010

== ENCOUNTER → 2023-09-21 11:17 | Outpatient (BNVA) | payer MEDICARE, SELFPAY | PROVIDERS: PCP Family Medicine; Referring Provider Family Medicine; Visit Provider Internal Medicine Cardiovascular Disease | DX: I10 Essential (primary) hypertension (principal); R01.1 Cardiac murmur, unspecified; I49.8 Other specified cardiac arrhythmias; R00.2 Palpitations | CPT/HCPCS: 93005; 99214 ==

== ENCOUNTER → 2023-11-03 08:55 | Outpatient (BNVA) | payer MEDICARE, SELFPAY | PROVIDERS: PCP Family Medicine; Visit Provider Nurse Practitioner Adult Health | DX: G43.009 Migraine without aura, not intractable, without status migrainosus (principal); Q15.9 Congenital malformation of eye, unspecified | CPT/HCPCS: 99214 ==

== ENCOUNTER 2023-11-23 18:41 | Outpatient (REF) | payer MEDICARE, SELFPAY ==
[2023-11-23 18:43] LABS: Bilirubin Negative (Negative); Blood Negative (Negative); Clarity Clear (Clear); Glucose 250 mg/dL (Negative); Ketones Trace mg/dL (Negative); Leukocyte Esterase Trace (Negative); Nitrite Positive (Negative); Specific Gravity 1.025 (1.005-1.025); Urobilinogen 0.2 mg/dL (Up to 0.2)
[2023-11-23 19:16] LABS: Bacteria Few HPF (Negative); C & S Indicated? No/Sq. Contamination; Crystals Negative HPF (Negative); Epithelial Cells Many HPF (Negative); Mucus Heavy (Negative); Other Cells Rare Transitional (Negative); RBC 0-2 HPF (0-2)
== END 2023-11-23 18:42 | disposition home or self-care (01) ==
LOC: NCHCN 18:41
PROVIDERS: PCP Family Medicine; Visit Provider Family Medicine
DX: R53.83 Other fatigue (principal)
CPT/HCPCS: 81003; 81015

== ENCOUNTER 2023-11-25 07:20 | Outpatient (CLI) | payer MEDICARE, SELFPAY ==
[2023-11-25 07:54] LABS: HCT 38.8 % (36.0-46.0); HGB 12.7 g/dL (11.2-15.7); MCH 30.2 pg (27.0-33.0); MCHC 32.7 % (32.0-36.0); MCV 92 fL (80-95); MPV 11.5 fL (8.0-11.0); Platelet Count 215 10^3/uL (130-400); RDW 12.5 % (11.7-14.6); RDW-SD 42.7 fL; WBC 5.19 10^3/uL (4.4-10.8)
[2023-11-25 08:36] LABS: ALT 29 U/L (14-59); AST 21 U/L (15-37); Albumin 3.5 g/dL (3.4-5.0); Alkaline Phosphatase 64 U/L (46-116); Anion Gap 9.2 mmol/L (3-11); BUN 12 mg/dL (7-18); Bilirubin, Total 0.5 mg/dL (0.2-1.0); CO2 28.8 mmol/L (21.0-32.0); Calcium 9.2 mg/dL (8.5-10.1); Chloride 101 mmol/L (98-107); Estimated GFR 56.95 (mL/min/1.73m2); Ferritin 230 ng/mL (8-252); Glucose 157 mg/dL (74-106); Sodium 139 mmol/L (136-145); Total Protein 7.9 g/dL (6.4-8.2)
[2023-11-25 08:43] LABS: C-Reactive Protein 3.92 mg/dL (<or=0.5)
[2023-11-25 09:25] LABS: Iron 60 ug/dL (50-170)
[2023-11-28 00:22] LABS: Anaplasma phagocytophilum Negative (Negative); B. miyamotoi PCR Negative (Negative); Babesia divergens/MO-1 Negative (Negative); Babesia duncani Negative (Negative); Babesia microti Negative (Negative); Ehrlichia chaffeensis Negative (Negative); Ehrlichia ewingii/canis Negative (Negative); Ehrlichia muris eauclairensis Negative (Negative)
== END 2023-11-25 07:21 | disposition home or self-care (01) ==
LOC: LBO 07:21
PROVIDERS: PCP Family Medicine; Visit Provider Family Medicine
DX: R53.83 Other fatigue (principal)
CPT/HCPCS: 36415; 80053; 85027; 87798; 82728; 83540; 86140

== ENCOUNTER → 2024-01-19 09:15 | Outpatient (BNVA) | payer MEDICARE, SELFPAY | PROVIDERS: PCP Family Medicine; Referring Provider Family Medicine; Visit Provider Podiatrist | DX: I70.203 Unspecified atherosclerosis of native arteries of extremities, bilateral legs (principal); E11.8 Type 2 diabetes mellitus with unspecified complications; E11.42 Type 2 diabetes mellitus with diabetic polyneuropathy; G62.9 Polyneuropathy, unspecified; B35.1 Tinea unguium; L60.3 Nail dystrophy | CPT/HCPCS: 11719; 11721 ==

== ENCOUNTER → 2024-04-10 08:35 | Outpatient (BNVA) | payer MEDICARE, SELFPAY | PROVIDERS: PCP Family Medicine; Referring Provider Podiatrist; Visit Provider Physical Therapy Assistant | DX: I70.203 Unspecified atherosclerosis of native arteries of extremities, bilateral legs (principal) | CPT/HCPCS: 93922 ==

== ENCOUNTER → 2024-04-26 08:25 | Outpatient (BNVA) | payer MEDICARE, SELFPAY | PROVIDERS: PCP Family Medicine; Referring Provider Family Medicine; Visit Provider Podiatrist | DX: L60.3 Nail dystrophy (principal); E11.42 Type 2 diabetes mellitus with diabetic polyneuropathy; I73.9 Peripheral vascular disease, unspecified; E53.8 Deficiency of other specified B group vitamins; D64.9 Anemia, unspecified; G62.9 Polyneuropathy, unspecified; B35.1 Tinea unguium | CPT/HCPCS: 11721 ==

== ENCOUNTER → 2024-07-17 09:00 | Outpatient (BNVA) | payer MEDICARE, SELFPAY | PROVIDERS: PCP Family Medicine; Referring Provider Family Medicine; Visit Provider Podiatrist | DX: L60.3 Nail dystrophy (principal); B35.1 Tinea unguium; E11.42 Type 2 diabetes mellitus with diabetic polyneuropathy; I73.89 Other specified peripheral vascular diseases; E53.8 Deficiency of other specified B group vitamins; D64.9 Anemia, unspecified; R09.89 Other specified symptoms and signs involving the circulatory and respiratory systems; L65.9 Nonscarring hair loss, unspecified; R23.8 Other skin changes; L60.2 Onychogryphosis; L84 Corns and callosities | CPT/HCPCS: 11721 ==

== ENCOUNTER 2024-08-20 20:06 | Emergency (ER) | payer MEDICARE, SELFPAY ==
[2024-08-20] VITALS (12 sets, daily range): BP systolic 150–162; BP diastolic 78–84; PULSE 63–73; RESP 12–24; TEMP 36.7; O2SAT 94–98
--- NOTE | 2024-08-20 20:00 | RT.EKG_ITS ---
APPROVED REPORT Exam: Resting ECG Reason for Exam: abd pain over 45 Patient Location: E HR:75 bpm ECG Measurements Heart Rate 75 AXIS RI 169 P 47 QRSd 88 QRS -7 QT 422 T 56 QTc 471 Conclusion Sinus rhythm...normal P axis, V-rate 60- 99 Probable left atrial enlargement...P >50mS, <-0.10mV V1
--- NOTE | 2024-08-20 20:30 | DI.CT_ITS ---
Exam(s) CT ABDOMEN PELVIS W EXAM: CT ABDOMEN PELVIS W CLINICAL HISTORY: RLQ pain TECHNIQUE: Imaging Protocol: Axial computed tomography images with coronal and sagittal reformatted images were created and reviewed. CONTRAST MATERIAL: Intravenous: Omnipaque 350 Contrast volume:75 mL Oral: No COMPARISON: CT CT ABDOMEN PELVIS W from 12/30/2018 FINDINGS: ABDOMEN: Lung Bases: There is a calcified granuloma in the left lower lobe. There is atelectasis in the lung bases. Liver: There is decreased attenuation of the liver consistent with fatty infiltration. No measurable mass. Portal, Superior Mesenteric, and Splenic Veins: Unremarkable. Gallbladder and Biliary Tract: No radiodense calculus or dilation. Pancreas: Normal density, no abnormal calcifications or inflammatory process. There is a 5 mm cyst in the body of the pancreas. Spleen: Normal. Adrenals: No masses seen. Kidneys: Normal size, contour and axis. No radiodense stones or obstructive uropathy. Tiny hypodensit ies in the kidneys bilaterally. They are too small for further characterization but likely reflect s mall cysts. No follow-up is recommended. Abdominal Aorta: Abdominal portion non-dilated. Atherosclerotic calcification is present. Bowel: There is diverticulosis of the colon without evidence of acute diverticulitis. There is no ev idence of bowel wall thickening or bowel obstruction. Appendix is unremarkable. Peritoneal Cavity: No ascites, collection or mesenteric inflammatory response. No free air. Lymph Nodes: Within normal limits. Bones: Within normal limits for the patient's age. There is L5 spondylolysis and grade 2 spondylolis thesis of L5 on S1. There is a left convex lumbar scoliosis. Soft Tissues: Unremarkable. PELVIS: Bladder: Symmetric distention, no gross wall thickening. Reproductive Organs: There is a calcified uterine fibroid. Lymph Nodes: Within normal limits. Bones: Within normal limits for the patient's age. IMPRESSION: 1. Normal appendix. 2. Colonic diverticulosis without evidence of acute diverticulitis. No evidence of bowel obstruction. 3. 5 mm pancreatic cyst. Follow-up examination in 2 years (Sussy et al, 2017). RADIATION DOSE DELIVERED: 378.71mGy.cm Total DLP DATA REPOSITORY: All CT scans at this facility are submitted to the National Radiology Data Registry (NRDR) Dose Index Registry (DIR) with the [employer] (A[employer]). RADIATION OPTIMIZATION: All CT scans at this facility use at least one of these dose optimization te chniques: automated exposure control; mA and/or kV adjustment per patient size (includes targeted exa ms where dose is matched to clinical indication); or iterative reconstruction.
[2024-08-20 20:45] LABS: Abs Immature Grans 0.02 10^3/uL (0.0-0.06); Absolute Basophil Count 0.08 10^3/uL (0.0-0.2); Absolute Eosinophil Count 0.17 10^3/uL (0.0-0.7); Absolute Lymphocyte Count 2.29 10^3/uL (1.2-3.4); Absolute Monocyte Count 0.72 10^3/uL (0.1-0.8); Absolute Neutrophil Count 2.36 10^3/uL (1.2-6.7); Basophils % 1.4 %; HCT 38.2 % (36.0-46.0); HGB 13.2 g/dL (11.2-15.7); Immature Grans % 0.4 %; Lymphocytes % 40.6 %; MCH 31.4 pg (27.0-33.0); MCHC 34.6 % (32.0-36.0); MCV 91 fL (80-95); MPV 10.7 fL (8.0-11.0); Monocytes % 12.8 %; Neutrophils % 41.8 %; Platelet Count 207 10^3/uL (130-400); RBC 4.21 10^6/uL (3.93-5.22); RDW 13.2 % (11.7-14.6); RDW-SD 43.5 fL; WBC 5.64 10^3/uL (4.4-10.8)
[2024-08-20 21:02] LABS: ALT 32 U/L (14-59); AST 22 U/L (15-37); Albumin 4.1 g/dL (3.4-5.0); Alkaline Phosphatase 66 U/L (46-116); Anion Gap 10.1 mmol/L (3-11); BUN 12 mg/dL (7-18); Bilirubin, Total 0.31 mg/dL (0.2-1.0); CO2 26.9 mmol/L (21.0-32.0); Calcium 9.1 mg/dL (8.5-10.1); Chloride 105 mmol/L (98-107); Estimated GFR 56.95 (mL/min/1.73m2); Glucose 171 mg/dL (74-106); Lipase 59 U/L (<78); Potassium 3.2 mmol/L (3.5-5.1); Sodium 142 mmol/L (136-145); Total Protein 8.2 g/dL (6.4-8.2)
[2024-08-20] MEDS: Normal Saline - Diluent 50 ML VIAL IJ (21:02)
[2024-08-20] MEDS: Omnipaque 350 MG/ML 100 ML BTL IJ (21:02)
[2024-08-20 21:31] LABS: Bilirubin Negative (Negative); Blood Negative (Negative); Clarity Clear (Clear); Glucose 100 mg/dL (Negative); Ketones Trace mg/dL (Negative); Leukocyte Esterase Trace (Negative); Nitrite Negative (Negative); Urobilinogen 0.2 mg/dL (Up to 0.2); pH 5.5 (5-8)
[2024-08-20 21:40] LABS: Bacteria Rare HPF (Negative); C & S Indicated? No/Sq. Contamination; Casts Negative LPF (Negative); Crystals Negative HPF (Negative); Epithelial Cells Many HPF (Negative); Mucus Heavy (Negative); Other Cells Rare Transitional (Negative); RBC 0-2 HPF (0-2)
--- NOTE | 2024-08-20 21:50 | DI.VRAD_ITS ---
PROCEDURE INFORMATION: Exam: CT Abdomen And Pelvis With Contrast Exam date and time: 08/20/2024 8:59 PM Age: 78 years old Clinical indication: Other: Rlq pain TECHNIQUE: Imaging protocol: Computed tomography of the abdomen and pelvis with contrast. Contrast material: 360; Contrast volume: 75 ml; Contrast route: INTRAVENOUS (IV); COMPARISON: CT ABDOMEN PELVIS W 12/30/2018 9:00 AM FINDINGS: Lungs: Lung bases clear. Heart: Enlarged heart. Liver: Possible fatty infiltration of the liver, difficult to confidently diagnose by CT imaging after administration of intravenous contrast. Gallbladder and biliary ducts: Normal appearing gallbladder. No calcified gallstones. No biliary dilatation. Pancreas: Normal appearing pancreas. Spleen: Normal appearing spleen. Adrenal glands: Normal appearing adrenal glands. Kidneys and ureters: Small indeterminate hypoattenuating renal lesions, not well characterized but statistically most likely renal cysts. No hydronephrosis. No obstructing ureteral stones. Stomach and bowel: No oral contrast. Stomach partially decompressed. No small bowel dilatation to suggest obstruction. Scattered colonic diverticula. No evidence of diverticulitis or colitis. Appendix: Normal appendix. Intraperitoneal space: No gross ascites or free air. Vasculature: No abdominal aortic aneurysm. Atherosclerotic calcification and plaque with moderate narrowing of the superior mesenteric artery origin, image 73 of series 12, otherwise widely patent. Lymph nodes: No pathologically enlarged mesenteric, retroperitoneal, or pelvic sidewall lymph nodes. Urinary bladder: Urinary bladder partially collapsed but grossly unremarkable, as seen. Reproductive: Anteverted leiomyomatous uterus with a large 3.8 cm calcified leiomyoma on the right on image 173 of series 12. Normal-sized ovaries. Bones/joints: No acute fracture seen among the bones of the abdomen or pelvis. Dextroscoliotic curvature through the lumbar region. Spinal degenerative change with discogenic degeneration, anterior osteophytes, and posterior osteophytic ridging at multiple levels. Bilateral spondylolysis at L5 with grade 1 anterolisthesis of L5 on S1, severe L5-S1 discogenic degeneration, and severe bilateral L5-S1 foraminal narrowing with partial flattening of the L5 nerve roots bilaterally. Soft tissues: Diastasis recti. Small fat containing left inguinal region hernia. IMPRESSION: 1. No acute bowel pathology demonstrated. 2. Possible fatty infiltration of the liver, difficult to confidently diagnose by CT imaging after administration of intravenous contrast. Dictated and Authenticated by: Xu Abdi MD. Orderin Sumanth Ríos MD
--- NOTE | 2024-08-20 22:39 | ED.GENADUL_ITS ---
Discharge Plan Disposition Patient Disposition: Home Condition: Stable Discharge Details Clinical Impression: Abdominal pain, Acute UTI Primary Care Provider: Zaynab Thacker V ED Provider: Khushbu Julio Home Meds and New Rx's Prescriptions: Continued simvastatin 40 mg tablet 40 mg PO DAILY trazodone 50 mg tablet 50 mg PO QHS PRN diclofenac sodium 1 % gel 2 g topical BID PRN Rx Instructions: apply to single elbow, wrist or hand; for hand includes palm/fingers/back of hand ascorbate calcium (vitamin C) 500 mg capsule 500 mg PO DAILY melatonin 10 mg capsule 10 mg PO HS PRN cod liver oil Capsule 1 cap PO DAILY meclizine 25 mg tablet 25 mg PO DAILY PRN benzonatate 200 mg capsule 200 mg PO TID triamcinolone acetonide 0.1 % cream 1 applic topical DAILY ketoconazole 2 % cream 1 applic topical DAILY Qty: 120 6RF Rx Instructions: Apply to toenails once daily gabapentin 100 mg Capsule 400 mg PO HS ondansetron 4 mg Film 4 mg PO Q6H PRN acetaminophen 500 mg tablet 1,000 mg PO TID omeprazole 20 mg capsule,delayed release(DR/EC) 40 mg PO DAILY meloxicam 7.5 mg tablet 7.5 mg PO DAILY prochlorperazine maleate 5 mg tablet See Rx Instructions PO TID PRN (Reason: headache and/or nausea) Qty: 30 3RF Rx Instructions: 5-10 mg orally three times a day PRN; magnesium oxide 400 mg magnesium capsule 400 mg PO DAILY sennosides [Senokot] 8.6 MG tablet 2 tab-cap PO HS potassium chloride 10 mEq tablet extended release 10 meq PO DAILY omega-3 fatty acids Capsule 1,000 mg PO DAILY vitamin E (dl, acetate) 45 mg (100 unit) Capsule 45 mg PO DAILY polyethylene glycol 3350 [Miralax] 17 gram/dose powder 17 g PO DAILY PRN lisinopril 2.5 mg tablet 2.5 mg PO DAILY cyanocobalamin (vitamin B-12) 1,000 mcg/mL solution 100 mcg subcut Q2W memantine 5 mg tablet 5 mg PO BID Patient Comments: 07/14/23 per PCP notes RH cetirizine 10 MG tablet,chewable 10 mg PO DAILY cholecalciferol (vitamin D3) 1,000 UNITS tablet 2,000 unit PO DAILY Discharge Instructions Instructions: Abdominal Pain, Adult ED, Urinary Tract Infection, Adult ED Additional Instructions: you have been given a single dose of medication for urinary tract infection please follow-up with pcp tomorrow for reassessment return earlier with fever, chills, persistent or worsening pain, or should new concerns arise tylenol as needed for pain Referrals: Zaynab Thacker MD [Primary Care Provider] - Discharge Data Discharge Date/Time-TO BE ENTERED AT DEPARTURE: 08/20/24 22:59 HPI General Date/Time Provider Initiated Documentation: 08/20/24 20:07 . HPI Narrative: The patient is an 78-year-old female with a past medical history of hypertens ion, hyperlipidemia, hypokalemia, and hypomagnesemia, who presents with a report of abdominal pain since yesterday. She reports experiencing abdominal pain since yesterday. She does not have any fever or chills, nausea or vomiting, or history of similar symptoms in the past. There are no known exacerbating or alleviating factors. Bowel movements are within normal limits for her. She does not have any known urinary symptoms. Related Data Home Medications ?Medication ?Instructions ?Recorded ?Confirmed cetirizine 10 mg chewable tablet 10 mg PO DAILY 03/02/13 08/20/24 cholecalciferol (vitamin D3) 25 2,000 unit PO DAILY 03/02/13 08/20/24 mcg (1,000 unit) tablet Senokot 8.6 mg tablet (sennosides) 2 tab-cap PO HS 11/02/17 08/20/24 acetaminophen 500 mg tablet 1,000 mg PO TID 06/11/20 08/20/24 gabapentin 100 mg capsule 400 mg PO HS 06/11/20 08/20/24 ondansetron 4 mg oral soluble film 4 mg PO Q6H PRN 06/11/20 08/20/24 simvastatin 40 mg tablet 40 mg PO DAILY 02/11/21 08/20/24 ascorbate calcium (vitamin C) 500 500 mg PO DAILY 08/07/21 08/20/24 mg capsule cod liver oil 1 cap PO DAILY 08/07/21 08/20/24 diclofenac sodium 1 % topical gel 2 g topical BID PRN 08/07/21 08/20/24 meclizine 25 mg tablet 25 mg PO DAILY PRN 08/07/21 08/20/24 melatonin 10 mg capsule 10 mg PO HS PRN 08/07/21 08/20/24 trazodone 50 mg tablet 50 mg PO QHS PRN 08/07/21 08/20/24 omeprazole 20 mg capsule,delayed 40 mg PO DAILY 08/26/21 08/20/24 release potassium chloride 10 mEq 10 meq PO DAILY 04/28/22 08/20/24 tablet,extended release omega-3 fatty acids 1,000 mg PO DAILY 06/12/22 08/20/24 vitamin E (dl, acetate) 45 mg (100 45 mg PO DAILY 06/12/22 08/20/24 unit) capsule meloxicam 7.5 mg tablet 7.5 mg PO DAILY 06/25/22 08/20/24 lisinopril 2.5 mg tablet 2.5 mg PO DAILY 12/24/22 08/20/24 polyethylene glycol 3350 17 17 g PO DAILY PRN 12/24/22 08/20/24 gram/dose oral powder (Miralax) prochlorperazine maleate 5 mg See Rx Instructions PO TID PRN 02/04/23 08/20/24 tablet headache and/or nausea #30 tabs magnesium oxide 400 mg PO DAILY 03/18/23 08/20/24 cyanocobalamin (vitamin B-12) 100 mcg subcut Q2W 07/14/23 08/20/24 1,000 mcg/mL injection solution memantine 5 mg tablet 5 mg PO BID 07/14/23 08/20/24 benzonatate 200 mg capsule 200 mg PO TID 12/30/23 08/20/24 triamcinolone acetonide 0.1 % 1 applic topical DAILY 12/30/23 08/20/24 topical cream ketoconazole 2 % topical cream 1 applic topical DAILY #120 grams 01/19/24 08/20/24 Previous Rx's ?Medication ?Instructions ?Recorded prochlorperazine maleate 5 mg See Rx Instructions PO TID PRN 02/04/23 tablet headache and/or nausea #30 tabs ketoconazole 2 % topical cream 1 applic topical DAILY #120 grams 01/19/24 Allergies Allergy/AdvReac Type Severity Reaction Status Date / Time adhesive Allergy Intermediate itchy rash Verified 08/20/24 20:21 niacin Allergy Intermediate Skin Rash Verified 08/20/24 20:21 Sulfa (Sulfonamide Allergy Intermediate Nausea Verified 08/20/24 20:21 Antibiotics) codeine AdvReac Intermediate VOMITING Verified 08/20/24 20:21 morphine AdvReac Mild vomiting Verified 08/20/24 20:21 General Stated Complaint: Abd Prob BETO: 3 Exam Narrative Exam Narrative: General Appearance: The patient is alert and oriented, an 78-year-old female in no acute distress. Vital signs: Within normal limits. HEENT: Moist mucous membranes are present. Respiratory: Lungs are clear to auscultation. Cardiovascular: Heart rate and rhythm are regular. Gastrointestinal: There is tenderness in the right lower quadrant of the abdomen. No rebound or guarding. Genitourinary: Female. Back, Musculoskeletal: No CVA tenderness. Skin: Warm and dry, no rash. Neurological: Normal. Course Vital Signs Vital signs: Vital Signs Temperature 36.7 C 08/20/24 20:11 Pulse 72 08/20/24 20:11 Respiratory Rate 16 08/20/24 20:11 Blood Pressure 155/79 H 08/20/24 20:11 Pulse Oximetry 94 08/20/24 20:11 Temperature 36.7 C 08/20/24 20:43 Temperature Source Oral 08/20/24 20:43 Pulse 65 08/20/24 21:31 Pulse 69 08/20/24 21:31 Respiratory Rate 14 08/20/24 21:31 Blood Pressure 162/80 H 08/20/24 21:31 Blood Pressure Mean 111 08/20/24 21:31 Blood Pressure Position Sitting 08/20/24 20:43 Pulse Oximetry 94 08/20/24 21:31 Oxygen Delivery Method Room Air 08/20/24 20:43 Oxygen Flow Rate 0 08/20/24 20:43 Pain Level 6 08/20/24 20:43 Lab/Test Results Lab/Test Results: Laboratory Tests Range/Units 08/20/24 08/20/24 20:41 21:25 WBC (4.4-10.8) 10^3/uL 5.64 RBC (3.93-5.22) 10^6/uL 4.21 Hgb (11.2-15.7) g/dL 13.2 Hct (36.0-46.0) % 38.2 MCV (80-95) fL 91 MCH (27.0-33.0) pg 31.4 MCHC (32.0-36.0) % 34.6 RDW (11.7-14.6) % 13.2 Plt Count (130-400) 10^3/uL 207 MPV (8.0-11.0) fL 10.7 Immature Gran % % 0.4 Neutrophils % % 41.8 Lymphocytes % % 40.6 Monocytes % % 12.8 Eosinophils % % 3.0 Basophils % % 1.4 Nucleated RBC % (0.0-0.3) % 0.0 Absolute Neutrophils (1.2-6.7) 10^3/uL 2.36 Absolute Lymphocytes (1.2-3.4) 10^3/uL 2.29 Absolute Monocytes (0.1-0.8) 10^3/uL 0.72 Absolute Eosinophils (0.0-0.7) 10^3/uL 0.17 Absolute Basophils (0.0-0.2) 10^3/uL 0.08 Sodium (136-145) mmol/L 142 Potassium (3.5-5.1) mmol/L 3.2 L Chloride (98-107) mmol/L 105 Carbon Dioxide (21.0-32.0) mmol/L 26.9 Anion Gap (3-11) mmol/L 10.1 BUN (7-18) mg/dL 12 Creatinine (0.55-1.02) mg/dL 1.0 Est GFR (CKD-EPI 2020) (mL/min/1.73m2) 56.95 Glucose (74-106) mg/dL 171 H Calcium (8.5-10.1) mg/dL 9.1 Total Bilirubin (0.2-1.0) mg/dL 0.31 AST (15-37) U/L 22 ALT (14-59) U/L 32 Alkaline Phosphatase (46-116) U/L 66 Total Protein (6.4-8.2) g/dL 8.2 Albumin (3.4-5.0) g/dL 4.1 Lipase (<78) U/L 59 Urine Color (Yellow) Yellow Urine Clarity (Clear) Clear Urine pH (5-8) 5.5 Ur Specific Casey (1.005-1.025) 1.020 Urine Protein (Neg-Trace) mg/dL 30 H Urine Ketones (Negative) mg/dL Trace H Urine Blood (Negative) Negative Urine Nitrite (Negative) Negative Urine Bilirubin (Negative) Negative Urine Urobilinogen (Up to 0.2) mg/dL 0.2 Ur Leukocyte Esterase (Negative) Trace H Urine RBC (0-2) HPF 0-2 Urine WBC (0-5) HPF 10-20 H Ur Epithelial Cells (Negative) HPF Many Urine Crystals (Negative) HPF Negative Urine Bacteria (Negative) HPF Rare Urine Casts (Negative) LPF Negative Urine Mucus (Negative) Heavy Urine Other (Negative) Rare Transitional Ur Culture Indicated? No/Sq. Contamination Urine Glucose (Negative) mg/dL 100 H Medical Decision Making Laboratory Studies CBC without evidence of leukocytosis. Mild hypokalemia at 3.2. Glucose 171. Urinalysis with 120 red blood cells and leukocyte esterase positive. Imaging CT scan shows no evidence of acute abnormality. Initial Assessment: 78-year-old female with a history of hypertension, hyperlipidemia, hypokalemia, and hypomagnesemia presents with abdominal pain since yesterday. No fever, chills, nausea, vomiting, or urinary symptoms. Right lower quadrant tenderness noted. Differential Diagnosis: - Abdominal pain: Right lower quadrant tenderness, no fever, chills, nausea, vomiting, or urinary symptoms. CT scan showed no evidence of acute abnormality. Follow up with primary care physician in 24 to 48 hours for reassessment. - Urinary tract infection: Urinalysis showed 120 red blood cells and leukocyte esterase positive. Treat with a single dose of fosfomycin pending urine culture results. - Hypokalemia: Mild hypokalemia with potassium level of 3.2. Encourage potassium supplementation at home. ED Course: - CBC without evidence of leukocytosis. - Mild hypokalemia at 3.2. - Glucose 171. - Urinalysis with 120 red blood cells and leukocyte esterase positive. - Single dose of fosfomycin pending urine culture. - No acute distress at the time of reassessment. - CT scan read by me and radiology, no evidence of acute abnormality. - Encouraged to follow up with primary care physician in 24 to 48 hours for reas sessment. - Early return precautions reviewed and patient expressed understanding. Final Assessment: Abdominal pain with right lower quadrant tenderness, no acute abnormality on CT scan. Urinary tract infection treated with fosfomycin. Mild hypokalemia to be managed with home supplementation. Clinical Impression: - Abdominal pain - Urinary tract infection - Hypokalemia Disposition: - Discharge - Follow-Up: Primary care physician in 24 to 48 hours for reassessment. MDM Components Evaluation: - Number of Differential Diagnoses or Management Options: Abdominal pain, Urinary tract infection, Hypokalemia. - Amount and Complexity of Data Reviewed: CBC, urinalysis, CT scan, glucose level. - Risk of Complication and Morbidity or Mortality: Mild hypokalemia, potential for urinary tract infection complications. Quality:SDOH Health Related Social Needs: No Data to Display PFSH All Active Problems (Updated 08/20/24 @ 22:40 by FROILAN Ling) Acute UTI (Acute) Abdominal pain (Acute) Diabetic peripheral neuropathy associated with type 2 diabetes mellitus (Acute) PAD (peripheral artery disease) (Acute) RICARDO 2023 (L lower ext) Neuropathy (Acute) Nail dystrophy (Acute) Polyneuropathy (Acute) Adjustment disorder (Chronic) Anemia (Chronic) Eye abnormality (Acute) Arthritis of left glenohumeral joint (Acute) Migraine headache without aura (Acute) Cognitive changes (Acute) Degenerative joint disease of right hip (Acute) Intra-articular injection with imagin06/03/2023; 10/08/2022; 07/10/2022 Medical History Fracture of lower leg Vitamin B12 deficiency (non anemic) Type 2 diabetes mellitus Shoulder pain, acute Callus of toe Cold intolerance Female bladder prolapse Acute upper respiratory infection Sinus congestion Insect bite Chronic headache Family history of aneurysm of blood vessel of brain History of short term memory loss Left flank pain Constipation Cystocele with prolapse Cough Back pain Ear pain, left Arthritis of right glenohumeral joint Arthritis of right acromioclavicular joint Carpal tunnel syndrome of right wrist Carpal tunnel syndrome of left wrist Helicobacter pylori (H. pylori) infection Fracture of right lower extremity Hip pain Cataract, bilateral Esophagitis Chronic gastritis Allergic rhinitis HTN (hypertension) Eczema Hyperparathyroidism pt. is unsure if she has this condition Gait abnormality Urinary incontinence Vitamin B12 deficiency Adenomatous colon polyp Peripheral neuropathy Diabetes mellitus type 2, controlled controlled with diet per pt. 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) History of carpal tunnel release Bilateral History of nasal surgery H/O esophagogastroduodenoscopy (~02/01/19) 2018-Gastritis Status post cataract extraction and insertion of intraocular lens of left eye (08/22/18) Status post cataract extraction and insertion of intraocular lens of right eye (08/08/18) Tubal Ligation, Right Leg fracture pt reports metal plate in right leg Colonoscopy - IV Sedation (01/06/17) Family History Father Colon cancer Maternal Uncle Colon cancer Mother Dementia Stroke Other Diabetes Social History Smoking/Tobacco Use Status: Never Smoking risk assessment performed?: Yes Alcohol Intake: never Drug use: Never Substance use type: does not use Household members: children and none Housing: house Number of Children: 2 Pets and animals: Yes Pets and animals: cat(s) and dog(s) Current gender identity: female What is your relationship status?: Panel score (0-1 are the most socially isolated patients): 0 What type of physical activity do you participate in: additional Details: yard work and gardening Do you feel safe at home: Yes Do you feel safe in your relationship?: Yes Additional Social history: Female Reproductive History Menstrual Age of Menarche: 8 Duration of menses: 3-5 days Menopause type: natural History History 3 Para Hx # Term Pregnancies Multiple births Hx # Pregnancies Ectopic pregnancies AB induced Hx Number of Living Children 2 AB spontaneous 1 Past Pregnancies Del. Date GA/Weeks # Preg Succ Route Wgt Sex Labor Lgth Anesth esia Location [facility] Complic 12/31/1964 40 No vaginal 3203.496 g Male [birth year]1966 40 No vaginal 3203.496 g Female Delivery Date: 12/31/1964 Last Updated by: Carla Barcenas pt reports no complications Delivery Date: 05/11/1966 Last Updated by: Carla Barcenas pt reports no complications
[2024-08-20] MEDS: Fosfomycin Tromethamine 3 GM PACKET PO (22:57)
== END 2024-08-20 22:59 | disposition home or self-care (01) ==
PROVIDERS: Emergency Provider Physician Assistant; PCP Family Medicine
DX: N39.0 Urinary tract infection, site not specified (principal); R10.9 Unspecified abdominal pain; E87.6 Hypokalemia
CPT/HCPCS: 80053; 83690; 93005; 99285; 74177; 81003; 81015; 85025; 93010; 99283; J3490

== ENCOUNTER 2024-08-29 16:06 | Outpatient (REF) | payer MEDICARE, SELFPAY | END 2024-08-29 16:07 | disposition home or self-care (01) | LOC: NCHCN 16:06 | PROVIDERS: PCP Family Medicine; Visit Provider Family Medicine | DX: N39.0 Urinary tract infection, site not specified (principal) | CPT/HCPCS: 87086 ==

== ENCOUNTER → 2024-11-13 10:37 | Outpatient (BNVA) | payer MEDICARE, SELFPAY | PROVIDERS: PCP Family Medicine; Referring Provider Family Medicine; Visit Provider Podiatrist | DX: L60.3 Nail dystrophy (principal); E11.42 Type 2 diabetes mellitus with diabetic polyneuropathy; I73.89 Other specified peripheral vascular diseases; R09.89 Other specified symptoms and signs involving the circulatory and respiratory systems; L65.9 Nonscarring hair loss, unspecified; R23.8 Other skin changes; L60.2 Onychogryphosis; L60.8 Other nail disorders; B35.1 Tinea unguium; L84 Corns and callosities | CPT/HCPCS: 11721 ==

== ENCOUNTER → 2024-11-22 10:04 | Outpatient (BNVA) | payer MEDICARE, SELFPAY | PROVIDERS: PCP Family Medicine; Visit Provider Nurse Practitioner Adult Health | DX: G43.009 Migraine without aura, not intractable, without status migrainosus (principal); R41.89 Other symptoms and signs involving cognitive functions and awareness | CPT/HCPCS: 99214 ==

== ENCOUNTER → 2025-03-19 10:41 | Outpatient (BNVA) | payer MEDICARE, SELFPAY | PROVIDERS: PCP Family Medicine; Referring Provider Family Medicine; Visit Provider Podiatrist | DX: L60.3 Nail dystrophy (principal); E11.42 Type 2 diabetes mellitus with diabetic polyneuropathy; I73.89 Other specified peripheral vascular diseases; R09.89 Other specified symptoms and signs involving the circulatory and respiratory systems; L65.9 Nonscarring hair loss, unspecified; R23.4 Changes in skin texture; L60.2 Onychogryphosis; L60.8 Other nail disorders; L84 Corns and callosities | CPT/HCPCS: 11721 ==